=== PATIENT | female | born 1950 | race Caucasian/White ===

== ENCOUNTER 2017-09-13 16:02 | Inpatient (IN) | payer MEDICARE, OTHER ==
[2017-09-13] MEDS ORDERED: HYDROmorphone 0.5 MG/0.5 ML SYRINGE IVPUSH ONE ×2 (16:25→19:11)
[2017-09-13] MEDS ORDERED: Ondansetron 4 MG/2 ML SDV IVPUSH ONE (16:29)
[2017-09-13] MEDS ORDERED: Sodium Chloride 0.9% 1,000 ML IV SCH (16:30)
[2017-09-13] MEDS ORDERED: Sodium Chloride 0.9% 10 ML Syringe FLUSH PRN (16:33)
--- NOTE | 2017-09-13 16:37 | EDM.PDOC ---
ED HPI GENERAL MEDICAL PROBLEM - General Chief Complaint: Lower Extremity Injury/Pain Stated Complaint: AMBULANCE Time Seen by Provider: 09/13/17 16:21 Source of Information: Reports: Patient History Limitations: Reports: No Limitations - History of Present Illness INITIAL COMMENTS - FREE TEXT/NARRATIVE: Patient is a 67-year-old female presents ED complaining of right hip pain. Patient states earlier today she was walking her dog when her dog took off suddenly jerking the leash in her hand. Patient fell landing on the right hip and hitting the right side of her head. There was no loss of consciousness. Patient got up on her own accord with no issues. She has been walking on the affected extremity with increasing pain. She presented to the walk-in clinic today with x-ray obtained. Fracture was noted thus she was sent to the ED for further evaluation by Dr. Vieira. Patient is on no anticoagulants. She denies any neck discomfort, nausea/vomiting, vision changes, chest pain, shortness of breath, abdominal pain, dysuria, n/t extremities, or any additional complaints. Treatments LEATHER PATCHER: Reports: Other (see below) Other Treatments LEATHER PATCHER: none Right Hip Pain Score (Numeric/FACES): 10 - Related Data Allergies Allergy/AdvReac Type Severity Reaction Status Date / Time spironolactone Allergy Itching Verified 03/31/14 10:31 Sulfa (Sulfonamide Allergy Rash Verified 03/31/14 10:31 Antibiotics) Home Meds: Home Meds Furosemide [Lasix] 40 mg PO DAILY 03/31/14 [History] Levothyroxine [Synthroid] 125 mcg PO DAILY 03/31/14 [History] glipiZIDE [Glipizide ER] 10 mg PO DAILY 03/31/14 [History] metFORMIN HCl [Metformin HCl ER] 750 mg PO DAILY 03/31/14 [History] SitaGLIPtin [Januvia] 100 mg PO DAILY 09/13/17 [History] atorvaSTATin [Lipitor] 40 mg PO DAILY 09/13/17 [History] Past Medical History Gastrointestinal History: Reports: Other (See Below) Other Gastrointestinal History: benign neoplasm of the colon Musculoskeletal History: Reports: Other (See Below) Other Musculoskeletal History: 2 right surgery to knee Psychiatric History: Reports: Anxiety Endocrine/Metabolic History: Reports: Diabetes, Type II, Hypothyroidism - Past Surgical History GI Surgical History: Reports: Cholecystectomy Musculoskeletal Surgical History: Reports: Carpal Tunnel Social & Family History - Tobacco Use Smoking Status *Q: Current Every Day Smoker Years of Tobacco use: 50 Packs/Tins Daily: 1.5 - Caffeine Use Caffeine Use: Reports: Coffee, Soda - Alcohol Use Days Per Week of Alcohol Use: 0 Number of Drinks Per Day: 0 Total Drinks Per Week: 0 - Recreational Drug Use Recreational Drug Use: No Drug Use in Last 12 Months: No Review of Systems - Review of Systems Review Of Systems: See Below Eyes: Reports: No Symptoms Respiratory: Reports: No Symptoms Cardiovascular: Reports: No Symptoms GI/Abdominal: Reports: No Symptoms Musculoskeletal: Reports: Joint Pain (Right hip). Denies: Neck Pain Skin: Reports: Bruising (Right side of her head small hematoma with abrasion) Neurological: Reports: Difficulty Walking (Secondary to pain) ED EXAM, GENERAL - Physical Exam Exam: See Below Exam Limited By: No Limitations General Appearance: Alert, WD/WN, Moderate Distress Eye Exam: Bilateral Eye: EOMI, Nystagmus (None noted), PERRL Ears: Hearing Grossly Normal Nose: Normal Inspection Throat/Mouth: Normal Inspection, Normal Voice, No Airway Compromise Head: Other (Small hematoma with abrasion to the right side of her head secondary to fall. No ecchymosis, bony abnormalities.) Neck: Normal Inspection, Supple, Non-Tender, Full Range of Motion Respiratory/Chest: No Respiratory Distress, Lungs Clear, Normal Breath Sounds, No Accessory Muscle Use, Chest Non-Tender Cardiovascular: Normal Peripheral Pulses, Regular Rate, Rhythm, No Murmur Peripheral Pulses: 2+: Posterior Tibial (L), Posterior Tibial (R), 4+: Radial (L ), Radial (R) GI/Abdominal: Normal Bowel Sounds, Soft, Non-Tender, No Distention Back Exam: Normal Inspection. No: Paraspinal Tenderness, Vertebral Tenderness Extremities: Normal Inspection, Pedal Edema (Bilaterally), Limited Range of Motion, Other (Pain with palpation of the right hip with palpation. With palpation of the remaining aspect of the femur, knee, lower leg, ankle, foot there is no discomfort.) Neurological: Alert, Oriented, CN II-XII Intact, Normal Cognition, No Motor/ Sensory Deficits Psychiatric: Normal Affect, Normal Mood Skin Exam: Warm, Dry, Intact, Normal Color Course - Vital Signs Last Recorded V/S: Last Vital Signs Temp 98.3 F 09/13/17 16:07 Pulse 101 H 09/13/17 16:07 Resp 20 09/13/17 16:07 BP 120/63 09/13/17 16:07 Pulse Ox 91 L 09/13/17 20:42 - Orders/Labs/Meds Orders: Active Orders 24 hr Category Date Time Status Sodium Chloride 0.9% [Saline Flush] Med 09/13/17 16:33 Active 10 ml FLUSH ASDIRECTED PRN Peripheral IV Insertion Adult [OM.PC] Routine Oth 09/13/17 16:33 Ordered Medication Orders Acetaminophen (Tylenol) 650 mg PO Q6H PRN PRN Reason: Pain/Fever Dextrose/Water (Dextrose 50% In Water) 50 ml IVPUSH ASDIRECTED PRN PRN Reason: Hypoglycemia Glipizide (Glucotrol Xl) 10 mg PO DAILY [facility] Hydromorphone HCl (Dilaudid) 0.5 mg IVPUSH Q4H PRN PRN Reason: Pain (moderate 4-6) Sodium Chloride (Sodium Chloride 0.45%) 1,000 mls @ 125 mls/hr IV ASDIRECTED [facility] Last Admin: 09/13/17 20:38 Dose: 125 mls/hr Insulin Aspart (Novolog) 0 unit SUBCUT QIDACANDBED [facility]; Protocol Last Admin: 09/13/17 21:25 Dose: Not Given Ketorolac Tromethamine (Toradol) 15 mg IVPUSH Q6H [facility] Last Admin: 09/13/17 20:34 Dose: 15 mg Levothyroxine Sodium (Levothyroxine) 125 mcg PO ACBRK [facility] Ondansetron HCl (Zofran) 4 mg IVPUSH Q8H PRN PRN Reason: Nausea/Vomiting Rosuvastatin Calcium (Crestor) 10 mg PO DAILY [facility] Sodium Chloride (Saline Flush) 10 ml FLUSH ASDIRECTED PRN PRN Reason: Keep Vein Open Last Admin: 09/13/17 16:39 Dose: 10 ml Labs: Laboratory Tests 09/13/17 09/13/17 09/13/17 Range/Units 16:45 16:45 16:45 WBC 23.04 H (3.98-10.04) K/mm3 RBC 5.51 H (3.98-5.22) M/mm3 Hgb 17.3 H (11.2-15.7) gm/L Hct 50.6 H (34.1-44.9) % MCV 91.8 (79.4-94.8) fl MCH 31.4 (25.6-32.2) pg MCHC 34.2 (32.2-35.5) g/dl RDW Std Deviation 41.2 (36.4-46.3) fL Plt Count 260 (182-369) K/mm3 MPV 11.5 (9.4-12.3) fl Neutrophils % (Manual) 90 H (40-60) % Band Neutrophils % 0 (0-10) % Lymphocytes % (Manual) 6 L (20-40) % Atypical Lymphs % 0 % Monocytes % (Manual) 4 (2-10) % Eosinophils % (Manual) 0 L (0.7-5.8) % Basophils % (Manual) 0 L (0.1-1.2) Platelet Estimate Adequate RBC Morph Comment Normal PT 10.3 (9.5-12.1) SECONDS INR 0.94 APTT 25 (24-31) SECONDS Sodium 141 (136-145) mEq/L Potassium 4.0 (3.5-5.1) mEq/L Chloride 106 (98-107) mEq/L Carbon Dioxide 28 (21-32) mEq/L Anion Gap 11.0 (5-15) BUN 25 H (7-18) mg/dL Creatinine 0.8 (0.55-1.02) mg/dL Est Cr Clr Drug Dosing 65.45 mL/min Estimated GFR (MDRD) > 60 (>60) mL/min BUN/Creatinine Ratio 31.3 H (14-18) Glucose 187 H (80-115) mg/dL Calcium 9.3 (8.5-10.1) mg/dL Total Bilirubin 0.4 (0.2-1.0) mg/dL AST 23 (15-37) U/L ALT 29 (14-59) U/L Alkaline Phosphatase 59 (46-116) U/L Total Protein 5.6 L (6.4-8.2) g/dl Albumin 2.5 L (3.4-5.0) g/dl Globulin 3.1 gm/dL Albumin/Globulin Ratio 0.8 L (1-2) Meds: Medications Generic Name Dose Route Start Last Admin Trade Name Freq PRN Reason Stop Dose Admin Acetaminophen 650 mg 09/13/17 19:59 Tylenol PO Q6H PRN Pain/Fever Dextrose/Water 50 ml 09/13/17 19:44 Dextrose 50% In Water IVPUSH ASDIRECTED PRN Hypoglycemia Glipizide 10 mg 09/14/17 09:00 Glucotrol Xl PO DAILY [facility] Hydromorphone HCl 0.5 mg 09/13/17 19:45 Dilaudid IVPUSH Q4H PRN Pain (moderate 4-6) Sodium Chloride 1,000 mls @ 125 mls/hr 09/13/17 20:00 09/13/17 20:38 Sodium Chloride 0.45% IV 125 mls/hr ASDIRECTED [facility] Administration Insulin Aspart 0 unit 09/13/17 22:00 09/13/17 21:25 Novolog SUBCUT Not Given QIDACANDBED [facility] Protocol Ketorolac Tromethamine 15 mg 09/13/17 20:00 09/13/17 20:34 Toradol IVPUSH 15 mg Q6H [facility] Administration Levothyroxine Sodium 125 mcg 09/14/17 06:00 Levothyroxine PO ACBRK [facility] Ondansetron HCl 4 mg 09/13/17 19:51 Zofran IVPUSH Q8H PRN Nausea/Vomiting Rosuvastatin Calcium 10 mg 09/14/17 09:00 Crestor PO DAILY [facility] Sodium Chloride 10 ml 09/13/17 16:33 09/13/17 16:39 Saline Flush FLUSH 10 ml ASDIRECTED PRN Administration Keep Vein Open Discontinued Medications Generic Name Dose Route Start Last Admin Trade Name Jan PRN Reason Stop Dose Admin Hydromorphone HCl 0.5 mg 09/13/17 16:25 09/13/17 16:32 Dilaudid IVPUSH 09/13/17 16:26 0.5 mg ONETIME ONE Administration Hydromorphone HCl 0.5 mg 09/13/17 19:11 09/13/17 20:37 Dilaudid IVPUSH 09/13/17 19:12 0.5 mg ONETIME ONE Administration Sodium Chloride 1,000 mls @ 150 mls/hr 09/13/17 16:30 09/13/17 16:39 Normal Saline IV 150 mls/hr ASDIRECTED [facility] Administration Ondansetron HCl 4 mg 09/13/17 16:29 09/13/17 16:38 Zofran IVPUSH 09/13/17 16:30 4 mg ONETIME ONE Administration - Re-Assessments/Exams Free Text/Narrative Re-Assessment/Exam: We reviewed x-rays of the right hip. Right hip is impacted. Dr. Vieira has presented to the ED and reviewed films at 1632. Plan is to admit the patient to medicine to clear for surgery. Surgery will take place tomorrow morning. Has significant amount of pain to the right hip ordered Dilaudid 0.5 mg IVP, Zofran 4 mg IVP, and NS at 150 mL an hour. Initial labs and studies include CBC, chem 14, coag studies, and UA. Will contact Dr. Lou for admission. Chest x-ray and EKG can be completed on the floor. In addition patient has contusion of the right side of her head with no bony abnormalities noted. She had no LOC. Denies any vision changes, n/v, neck pain , or any additional complaints suggesting CT is required. She is on no anticoagulants.. 09/13/17 16:[address] Lou. She will see this patient in the E.D. requested I obtain EKG, chest x-ray, head CT while he ED. Labs reviewed: Blood cell count 23.04, hemoglobin 17.3, platelet count 260, neutrophil percentage is elevated at 98 with no left shift. Case to panel was essentially normal. Creatinine 0.8. Glucose 187. UA was negative for infection. EKG sinus rhythm at a rate of [address] changes noted. CT of the head impression: Mild soft tissue swelling within the right scalp. No acute intracranial abnormality is identified. No acute calvarial abnormalities seen. Chest x-ray impression: Nothing acute is suspected on portable chest x-ray. Patient was admitted to the floor. Dr. Lou has seen the patient. Departure - Departure Time of Disposition: 16:37 Disposition: Admitted As Inpatient 65 Condition: Good Clinical Impression: Closed right hip fracture Qualifiers: Encounter type: initial encounter Qualified Code(s): S72.001A - Fracture of unspecified part of neck of right femur, initial encounter for closed fracture - Discharge Information - My Orders Last 24 Hours: My Active Orders 09/13/17 16:33 Sodium Chloride 0.9% [Saline Flush] 10 ml FLUSH ASDIRECTED PRN Peripheral IV Insertion Adult [OM.PC] Routine - Assessment/Plan Last 24 Hours: My Active Orders 09/13/17 16:33 Sodium Chloride 0.9% [Saline Flush] 10 ml FLUSH ASDIRECTED PRN Peripheral IV Insertion Adult [OM.PC] Routine
--- NOTE | 2017-09-13 17:41 | CT ---
Head CT Technique: Multiple axial sections through the brain were obtained. Intravenous contrast was not utilized. Comparison: No prior intracranial imaging. Findings: Mild soft tissue swelling is seen within the right side of the scalp. Ventricles along with basal cisterns and sulci over the convexities are within normal limits for the patient's age. No abnormal parenchymal densities are seen. No evidence of intracranial hemorrhage. No midline shift or mass effect is seen. Visualized sinuses are clear. No acute calvarial abnormality is seen. Impression: 1. Mild soft tissue swelling within the right scalp. 2. No acute intracranial abnormality is identified. No acute calvarial abnormality is seen. Diagnostic code #2
--- NOTE | 2017-09-13 18:53 | CR ---
Chest: Portable view of the chest was obtained. Comparison: No prior chest imaging. Right hemidiaphragm is slightly elevated which is likely chronic. Minimal atelectasis within the right lateral costophrenic angle is seen. Heart size appears within normal limits for portable technique. Tortuous thoracic aorta is seen. Lung markings are mildly increased which are felt to be accentuated from portable technique as well as probable chronic change. No acute parenchymal densities are suspected. Bony structures are grossly intact. Impression: 1. Findings as noted above. Nothing acute is suspected on portable chest x-ray. Diagnostic code #2
--- NOTE | 2017-09-13 19:39 | PCM.HP ---
H&P History of Present Illness - General Date of Service: 09/13/17 Admit Problem/Dx: Admission Diagnosis/Problem Admission Diagnosis/Problem Hip fracture requiring operative repair Source of Information: Patient, Provider History Limitations: Reports: No Limitations - History of Present Illness Initial Comments - Free Text/Narative: 67 year old female reports falling when walking her dog; she reported falling on her hip and hitting her head. The patient was seen in the ED by Dr Vieira and scheduled for an ortho procedure on 09/14/17 for a valgus impacted subcapital femur fracture. The patient was seen initially at a walk in clinic where an X Ray was performed. She denies CP, SOB, palpitations, PND, syncopal/ presyncopal episode. She can easily perform 4 METS and may proceed to surgery as scheduled. Onset of Symptoms: Reports: Sudden Symptom Onset Date: 09/13/17 Duration of Symptoms: Reports: Hour(s):, Getting Worse Location: Reports: Lower Extremity, Right Quality: Reports: Throbbing Improves with: Reports: Medication Worsens with: Reports: Movement Associated Symptoms: Reports: No Other Symptoms Right Hip Pain Score (Numeric/FACES): 4 - Related Data Allergies/Adverse Reactions: Allergies Allergy/AdvReac Type Severity Reaction Status Date / Time spironolactone Allergy Itching Verified 03/31/14 10:31 Sulfa (Sulfonamide Allergy Rash Verified 03/31/14 10:31 Antibiotics) Home Medications: Home Meds Furosemide [Lasix] 40 mg PO DAILY 03/31/14 [History] Levothyroxine [Synthroid] 125 mcg PO DAILY 03/31/14 [History] glipiZIDE [Glipizide ER] 10 mg PO DAILY 03/31/14 [History] metFORMIN HCl [Metformin HCl ER] 750 mg PO DAILY 03/31/14 [History] SitaGLIPtin [Januvia] 100 mg PO DAILY 09/13/17 [History] atorvaSTATin [Lipitor] 40 mg PO DAILY 09/13/17 [History] Past Medical History HEENT History: Reports: Cataract, Impaired Vision, Other (See Below) Other HEENT History: wears glasses Gastrointestinal History: Reports: Other (See Below) Other Gastrointestinal History: benign neoplasm of the colon-removed 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 Dermatologic History: Reports: Other (See Below) Other Dermatologic History: stated she had skin cancer - Past Surgical History HEENT Surgical History: Reports: None GI Surgical History: Reports: Cholecystectomy Musculoskeletal Surgical History: Reports: Carpal Tunnel Oncologic Surgical History: Reports: None Dermatological Surgical History: Reports: Skin Biopsy Social & Family History - Family History Family Medical History: Noncontributory - Tobacco Use Smoking Status *Q: Current Every Day Smoker Years of Tobacco use: 50 Packs/Tins Daily: 1.5 - Caffeine Use Caffeine Use: Reports: Coffee, Soda - Alcohol Use Days Per Week of Alcohol Use: 0 Number of Drinks Per Day: 0 Total Drinks Per Week: 0 - Recreational Drug Use Recreational Drug Use: No Drug Use in Last 12 Months: No H&P Review of Systems - Review of Systems: Review Of Systems: See Below General: Reports: Weakness HEENT: Reports: No Symptoms Pulmonary: Reports: No Symptoms Cardiovascular: Reports: No Symptoms Gastrointestinal: Reports: No Symptoms Genitourinary: Reports: No Symptoms Musculoskeletal: Reports: No Symptoms Skin: Reports: No Symptoms Psychiatric: Reports: No Symptoms Neurological: Reports: No Symptoms Hematologic/Lymphatic: Reports: No Symptoms Immunologic: Reports: No Symptoms Exam - Exam Exam: See Below - Vital Signs Vital Signs: Last Vital Signs Temp 36.8 C 09/13/17 16:07 Pulse 101 H 09/13/17 16:07 Resp 20 09/13/17 16:07 BP 120/63 09/13/17 16:07 Pulse Ox 93 L 09/13/17 16:07 Weight: 85.865 kg - Exam Quality Assessment: Supplemental Oxygen General: Alert, Oriented, Cooperative HEENT: EACs Clear, EOMI, Nares Patent, Normal Nasal Septum, Pupils Equal, Pupils Reactive, PERRLA Neck: Supple, Trachea Midline Lungs: Normal Respiratory Effort Cardiovascular: Regular Rate, Regular Rhythm GI/Abdominal Exam: Normal Bowel Sounds, Soft, Non-Tender, No Organomegaly, No Distention (Female) Exam: Deferred Rectal (Female) Exam: Deferred Back Exam: Normal Inspection Extremities: Normal Inspection, Normal Capillary Refill, Pedal Edema Skin: Warm Neurological: Cranial Nerves Intact Neuro Extensive - Mental Status: Alert, Oriented x3 Neuro Extensive - Motor, Sensory, Reflexes: CN II-XII Intact Psychiatric: Alert, Normal Affect, Normal Mood - Patient Data Lab Results Last 24 hrs: Laboratory Results - last 24 hr 09/13/17 09/13/17 09/13/17 Range/Units 16:45 16:45 16:45 WBC 23.04 H (3.98-10.04) K/mm3 RBC 5.51 H (3.98-5.22) M/mm3 Hgb 17.3 H (11.2-15.7) gm/L Hct 50.6 H (34.1-44.9) % MCV 91.8 (79.4-94.8) fl MCH 31.4 (25.6-32.2) pg MCHC 34.2 (32.2-35.5) g/dl RDW Std Deviation 41.2 (36.4-46.3) fL Plt Count 260 (182-369) K/mm3 MPV 11.5 (9.4-12.3) fl Neutrophils % (Manual) 90 H (40-60) % Band Neutrophils % 0 (0-10) % Lymphocytes % (Manual) 6 L (20-40) % Atypical Lymphs % 0 % Monocytes % (Manual) 4 (2-10) % Eosinophils % (Manual) 0 L (0.7-5.8) % Basophils % (Manual) 0 L (0.1-1.2) Platelet Estimate Adequate RBC Morph Comment Normal PT 10.3 (9.5-12.1) SECONDS INR 0.94 APTT 25 (24-31) SECONDS Sodium 141 (136-145) mEq/L Potassium 4.0 (3.5-5.1) mEq/L Chloride 106 (98-107) mEq/L Carbon Dioxide 28 (21-32) mEq/L Anion Gap 11.0 (5-15) BUN 25 H (7-18) mg/dL Creatinine 0.8 (0.55-1.02) mg/dL Est Cr Clr Drug Dosing 65.45 mL/min Estimated GFR (MDRD) > 60 (>60) mL/min BUN/Creatinine Ratio 31.3 H (14-18) Glucose 187 H (80-115) mg/dL Calcium 9.3 (8.5-10.1) mg/dL Total Bilirubin 0.4 (0.2-1.0) mg/dL AST 23 (15-37) U/L ALT 29 (14-59) U/L Alkaline Phosphatase 59 (46-116) U/L Total Protein 5.6 L (6.4-8.2) g/dl Albumin 2.5 L (3.4-5.0) g/dl Globulin 3.1 gm/dL Albumin/Globulin Ratio 0.8 L (1-2) Result Diagrams: 09/14/17 05:40 09/14/17 05:40 - Problem List (1) Tobacco dependence due to cigarettes SNOMED Code(s): 76185318573740662 ICD Code: F17.210 - NICOTINE DEPENDENCE, CIGARETTES, UNCOMPLICATED Status: Acute Current Visit: Yes (2) Diabetes mellitus SNOMED Code(s): 23506695 ICD Code: E11.9 - TYPE 2 DIABETES MELLITUS WITHOUT COMPLICATIONS Status: Acute Current Visit: Yes (3) Hyperlipidemia associated with type 2 diabetes mellitus SNOMED Code(s): 193517395628, 034665263016 ICD Code: E11.69 - TYPE 2 DIABETES MELLITUS WITH OTHER SPECIFIED COMPLICATION ; E78.5 - HYPERLIPIDEMIA, UNSPECIFIED Status: Acute Current Visit: Yes (4) Hypertension SNOMED Code(s): 74272918 ICD Code: I10 - ESSENTIAL (PRIMARY) HYPERTENSION Status: Acute Current Visit: Yes (5) COPD (chronic obstructive pulmonary disease) SNOMED Code(s): 03066085 ICD Code: J44.9 - CHRONIC OBSTRUCTIVE PULMONARY DISEASE, UNSPECIFIED Status : Acute Current Visit: Yes Problem List Initiated/Reviewed/Updated: Yes Orders Last 24hrs: Active Orders 24 hr Category Date Time Status Admission Status [Patient Status] [ADT] Routine ADT 09/13/17 17:04 Active METH-RESIST S.AUR,MRSA BY PCR [MOLEC] Routine Lab 09/13/17 17:17 Ordered UA W/MICROSCOPIC [URIN] Stat Lab 09/13/17 16:28 Ordered Sodium Chloride 0.9% [Normal Saline] 1,000 ml Med 09/13/17 16:30 Active IV ASDIRECTED Sodium Chloride 0.9% [Saline Flush] Med 09/13/17 16:33 Active 10 ml FLUSH ASDIRECTED PRN Peripheral IV Insertion Adult [OM.PC] Routine Oth 09/13/17 16:33 Ordered Resuscitation Status Routine Resus Stat 09/13/17 19:12 Ordered Medication Orders Sodium Chloride (Normal Saline) 1,000 mls @ 150 mls/hr IV ASDIRECTED [facility] Last Admin: 09/13/17 16:39 Dose: 150 mls/hr Sodium Chloride (Saline Flush) 10 ml FLUSH ASDIRECTED PRN PRN Reason: Keep Vein Open Last Admin: 09/13/17 16:39 Dose: 10 ml Assessment/Plan Comment:: Impression: S/P fall with subsequent closed right hip fracture COPD with active tobacco use; no interest in quitting HTN DM type 2 HLD on a statin Plan: IVF Hold Metformin Home meds Pain meds; Toradol as tolerated Pre op labs; scheduled as per Ortho NPO after MN except meds Check HgB, DM ed and teaching Dietary consultation Nicotine replacement and tobacco cessation education Consult PT/OT/SW post op; expected hosp stay 96 hours DVT/GI prophylaxis
[2017-09-13] MEDS ORDERED: 50% Dextrose in Water 50 ML Syringe IVPUSH PRN (19:44)
[2017-09-13] MEDS ORDERED: HYDROmorphone 0.5 MG/0.5 ML SYRINGE IVPUSH PRN (19:45)
[2017-09-13] MEDS ORDERED: Acetaminophen 325 MG Tab PO PRN (19:59)
[2017-09-13] MEDS ORDERED: Sodium Chloride 0.45% 1,000 ML IV SCH (20:00)
[2017-09-13] MEDS: Ketorolac 15 MG/ML SDV IVPUSH SCH (20:34)
[2017-09-13] MEDS: Insulin Aspart 100 Units/ML 3 ML Pen SUBCUT SCH (21:25)
[2017-09-14] MEDS: Ketorolac 15 MG/ML SDV IVPUSH SCH ×2 (04:07→20:15)
[2017-09-14] MEDS: Levothyroxine 125 MCG Tab PO SCH (05:15)
[2017-09-14] MEDS: Insulin Aspart 100 Units/ML 3 ML Pen SUBCUT SCH ×4 (06:20→23:26)
[2017-09-14] MEDS ORDERED: Bupivacaine 0.5% 30 ML SDV ONE (06:24)
[2017-09-14] MEDS ORDERED: Cyclobenzaprine 10 MG Tab PO PRN (07:18)
[2017-09-14] MEDS ORDERED: Magnesium Hydroxide 400 MG/5 ML Susp 30 ML Cup PO PRN (07:19)
[2017-09-14] MEDS ORDERED: Naloxone 0.4 MG/ML SDV IVPUSH PRN (07:19)
[2017-09-14] MEDS ORDERED: Bupivacaine 0.25% 30 ML SDV ONE (07:19)
[2017-09-14] MEDS ORDERED: Bisacodyl 5 MG Tab PO PRN (07:19)
[2017-09-14] MEDS ORDERED: Propofol 200 MG/20 ML SDV ONE (07:25)
[2017-09-14] MEDS ORDERED: fentaNYL 100 MCG/2 ML SDV ONE (07:25)
[2017-09-14] MEDS ORDERED: Lidocaine 1% 4 ML ONE (07:26)
[2017-09-14] MEDS ORDERED: Midazolam 1 MG/ML 2 ML SDV ONE (07:26)
[2017-09-14] MEDS ORDERED: Bupivacaine 0.75% 30 ML SDV ONE (07:26)
[2017-09-14] MEDS ORDERED: Ketamine 500 mg/10 ML MDV ONE (07:26)
[2017-09-14] MEDS ORDERED: ceFAZolin 2 GM in Premix Bag 1 BAG IV SCH (07:30)
[2017-09-14] MEDS ORDERED: Morphine PF 1 MG/ML Amp ONE (07:34)
[2017-09-14] MEDS ORDERED: Lactated Ringers 2,000 ML ONE (08:10)
[2017-09-14] MEDS ORDERED: Dexamethasone 4 MG/ML SDV ONE (08:10)
[2017-09-14] MEDS ORDERED: Ondansetron 4 MG/2 ML SDV ONE (08:20)
[2017-09-14] MEDS ORDERED: fentaNYL 100 MCG/2 ML SDV IVPUSH PRN (08:28)
[2017-09-14] MEDS ORDERED: Meperidine PF 50 MG/ML Syringe IVPUSH PRN (08:28)
[2017-09-14] MEDS ORDERED: Ondansetron 4 MG/2 ML SDV IVPUSH PRN (08:28)
[2017-09-14] MEDS ORDERED: HYDROmorphone 0.5 MG/0.5 ML SYRINGE IV PRN (08:28)
[2017-09-14] MEDS ORDERED: Albuterol 0.083% 2.5 MG/3 ML Neb Soln NEB ONE (08:28)
--- NOTE | 2017-09-14 08:33 | PCM.PREANE ---
Preanesthetic Assessment - Procedure Proposed Procedure: Percutaneous Hip Pinning - Anesthesia/Transfusion/Family Hx Anesthesia History: Prior Anesthesia Without Reaction Family History of Anesthesia Reaction: No Transfusion History: No Prior Transfusion(s) - Review of Systems General: No Symptoms Pulmonary: Wheezing, Cough, Other (Smokes 1-2 ppd) Cardiovascular: No Symptoms Gastrointestinal: No Symptoms Other: Reports: Thyroid Problems (Hypothyroidism ), Anxiety - Physical Assessment NPO Status Date: 09/13/17 NPO Status Time: 23:59 Pulse: 86 O2 Sat by Pulse Oximetry: 95 (On 4L/NC) Respiratory Rate: 16 Blood Pressure: 125/65 Temperature: 36.9 C Vital Signs: Last Vital Signs Temp 36.9 C 09/14/17 04:05 Pulse 86 09/14/17 04:05 Resp 16 09/14/17 04:05 BP 125/65 09/14/17 04:05 Pulse Ox 95 09/14/17 04:05 Height: 1.7 m Weight: 86.228 kg ASA Class: 3E Mental Status: Alert & Oriented x3 Airway Class: Mallampati = 1 Dentition: Reports: Normal Dentition, Broken Tooth/Teeth, Missing Tooth/Teeth Thyro-Mental Finger Breadths: 3 Mouth Opening Finger Breadths: 3 ROM/Head Extension: Full Lungs: Clear to Auscultation, Normal Respiratory Effort, Decreased Breath Sounds Cardiovascular: Regular Rate, Regular Rhythm - Lab Values: Laboratory Last Values WBC 13.33 K/mm3 (3.98-10.04) H 09/14/17 05:40 RBC 4.74 M/mm3 (3.98-5.22) 09/14/17 05:40 Hgb 15.1 gm/L (11.2-15.7) 09/14/17 05:40 Hct 44.4 % (34.1-44.9) 09/14/17 05:40 MCV 93.7 fl (79.4-94.8) 09/14/17 05:40 MCH 31.9 pg (25.6-32.2) 09/14/17 05:40 MCHC 34.0 g/dl (32.2-35.5) 09/14/17 05:40 RDW Std Deviation 41.6 fL (36.4-46.3) 09/14/17 05:40 Plt Count 215 K/mm3 (182-369) 09/14/17 05:40 MPV 11.9 fl (9.4-12.3) 09/14/17 05:40 Neut % (Auto) 84.3 % (34.0-71.1) H 09/14/17 05:40 Lymph % (Auto) 7.7 % (19.3-51.7) L 09/14/17 05:40 [place] % (Auto) 5.9 % (4.7-12.5) 09/14/17 05:40 Eos % (Auto) 1.7 (0.7-5.8) 09/14/17 05:40 Baso % (Auto) 0.2 % (0.1-1.2) 09/14/17 05:40 Neut # (Auto) 11.23 K/mm3 (1.56-6.13) H 09/14/17 05:40 Lymph # (Auto) 1.03 K/mm3 (1.18-3.74) L 09/14/17 05:40 [place] # (Auto) 0.78 K/mm3 (0.24-0.36) H 09/14/17 05:40 Eos # (Auto) 0.23 K/mm3 (0.04-0.36) 09/14/17 05:40 Baso # (Auto) 0.03 K/mm3 (0.01-0.08) 09/14/17 05:40 Neutrophils % (Manual) 90 % (40-60) H 09/13/17 16:45 Band Neutrophils % 0 % (0-10) 09/13/17 16:45 Lymphocytes % (Manual) 6 % (20-40) L 09/13/17 16:45 Atypical Lymphs % 0 % 09/13/17 16:45 Monocytes % (Manual) 4 % (2-10) 09/13/17 16:45 Eosinophils % (Manual) 0 % (0.7-5.8) L 09/13/17 16:45 Basophils % (Manual) 0 (0.1-1.2) L 09/13/17 16:45 Manual Slide Review Abnormal smear 09/14/17 05:40 Platelet Estimate Adequate 09/13/17 16:45 RBC Morph Comment Normal 09/13/17 16:45 PT 10.3 SECONDS (9.5-12.1) 09/13/17 16:45 INR 0.94 09/13/17 16:45 APTT 25 SECONDS (24-31) 09/13/17 16:45 Sodium 139 mEq/L (136-145) 09/14/17 05:40 Potassium 4.1 mEq/L (3.5-5.1) 09/14/17 05:40 Chloride 106 mEq/L (98-107) 09/14/17 05:40 Carbon Dioxide 27 mEq/L (21-32) 09/14/17 05:40 Anion Gap 10.1 (5-15) 09/14/17 05:40 BUN 19 mg/dL (7-18) H 09/14/17 05:40 Creatinine 0.7 mg/dL (0.55-1.02) 09/14/17 05:40 Est Cr Clr Drug Dosing 74.80 mL/min 09/14/17 05:40 Estimated GFR (MDRD) > 60 mL/min (>60) 09/14/17 05:40 BUN/Creatinine Ratio 27.1 (14-18) H 09/14/17 05:40 Glucose 151 mg/dL (80-115) H 09/14/17 05:40 POC Glucose 135 mg/dL (80-115) H 09/14/17 06:01 Calcium 8.5 mg/dL (8.5-10.1) 09/14/17 05:40 Magnesium 2.0 mg/dl (1.8-2.4) 09/14/17 05:40 Total Bilirubin 0.4 mg/dL (0.2-1.0) 09/13/17 16:45 AST 23 U/L (15-37) 09/13/17 16:45 ALT 29 U/L (14-59) 09/13/17 16:45 Alkaline Phosphatase 59 U/L (46-116) 09/13/17 16:45 C-Reactive Protein 3.4 mg/dL (<1.0) H* 09/14/17 05:40 Total Protein 5.6 g/dl (6.4-8.2) L 09/13/17 16:45 Albumin 2.5 g/dl (3.4-5.0) L 09/13/17 16:45 Globulin 3.1 gm/dL 09/13/17 16:45 Albumin/Globulin Ratio 0.8 (1-2) L 09/13/17 16:45 Triglycerides 41 mg/dL (<150) 09/14/17 05:40 Cholesterol 147 mg/dL (<200) 09/14/17 05:40 LDL Cholesterol Direct 88 mg/dL (<100) 09/14/17 05:40 HDL Cholesterol 51.0 mg/dL (40-59) 09/14/17 05:40 Urine Color Yellow (Yellow) 09/13/17 21:30 Urine Appearance Clear (Clear) 09/13/17 21:30 Urine pH 5.5 (5.0-8.0) 09/13/17 21:30 Ur Specific [place] > or = 1.030 (1.005-1.030) 09/13/17 21:30 Urine Protein Trace (Negative) H 09/13/17 21:30 Urine Glucose (UA) Negative (Negative) 09/13/17 21:30 Urine Ketones Negative (Negative) 09/13/17 21:30 Urine Occult Blood Negative (Negative) 09/13/17 21:30 Urine Nitrite Negative (Negative) 09/13/17 21:30 Urine Bilirubin Negative (Negative) 09/13/17 21:30 Urine Urobilinogen 0.2 (0.2-1.0) 09/13/17 21:30 Ur Leukocyte Esterase Negative (Negative) 09/13/17 21:30 Urine RBC 0-5 /hpf (0-5) 09/13/17 21:30 Urine WBC 0-5 /hpf (0-5) 09/13/17 21:30 Ur Epithelial Cells 0-5 /hpf (0-5) 09/13/17 21:30 Urine Bacteria Occasional /hpf (FEW) 09/13/17 21:30 Urine Mucus Few /hpf (FEW) 09/13/17 21:30 MRSA (PCR) Negative 09/13/17 21:30 - Allergies Allergies/Adverse Reactions: Allergies Allergy/AdvReac Type Severity Reaction Status Date / Time spironolactone Allergy Itching Verified 03/31/14 10:31 Sulfa (Sulfonamide Allergy Rash Verified 03/31/14 10:31 Antibiotics) - Acknowledgements Anesthesia Type Planned: Spinal Pt an Appropriate Candidate for the Planned Anesthesia: Yes Alternatives and Risks of Anesthesia Discussed w Pt/Guardian: Yes Pt/Guardian Understands and Agrees with Anesthesia Plan: Yes PreAnesthesia Questionnaire HEENT History: Reports: Cataract, Impaired Vision, Other (See Below) Other HEENT History: wears glasses Gastrointestinal History: Reports: Other (See Below) Other Gastrointestinal History: benign neoplasm of the colon [employer] History: Reports: Musculoskeletal History: Reports: Other (See Below) Other Musculoskeletal History: 2 right surgery to knee Psychiatric History: Reports: Anxiety Endocrine/Metabolic History: Reports: Diabetes, Type II, Hypothyroidism Oncologic (Cancer) History: Reports: Other (See Below) Other Oncologic History: stated she has/had skin cancer. Dermatologic History: Reports: Other (See Below) Other Dermatologic History: stated she had skin cancer - Past Surgical History GI Surgical History: Reports: Cholecystectomy Musculoskeletal Surgical History: Reports: Carpal Tunnel - SUBSTANCE USE Smoking Status *Q: Current Every Day Smoker Tobacco Use Within Last Twelve Months: Cigarettes Days Per Week of Alcohol Use: 0 Number of Drinks Per Day: 0 Total Drinks Per Week: 0 Recreational Drug Use History: No - HOME MEDS Home Medications: Home Meds Furosemide [Lasix] 40 mg PO DAILY 03/31/14 [History] Levothyroxine [Synthroid] 125 mcg PO DAILY 03/31/14 [History] glipiZIDE [Glipizide ER] 10 mg PO DAILY 03/31/14 [History] metFORMIN HCl [Metformin HCl ER] 750 mg PO DAILY 03/31/14 [History] SitaGLIPtin [Januvia] 100 mg PO DAILY 09/13/17 [History] atorvaSTATin [Lipitor] 40 mg PO DAILY 09/13/17 [History] - CURRENT (IN HOUSE) MEDS Current Meds: Current Medications Acetaminophen (Tylenol) 650 mg PO Q6H PRN PRN Reason: Pain/Fever Bisacodyl (Dulcolax) 5 mg PO DAILY PRN PRN Reason: Constipation Cyclobenzaprine HCl (Flexeril) 10 mg PO TID PRN PRN Reason: Spasms Dextrose/Water (Dextrose 50% In Water) 50 ml IVPUSH ASDIRECTED PRN PRN Reason: Hypoglycemia Docusate Sodium (Colace) 100 mg PO BID MAMTA Famotidine (Pepcid) 20 mg PO Q12H MAMTA Glipizide (Glucotrol Xl) 10 mg PO DAILY MAMTA Hydromorphone HCl (Dilaudid) 0.5 mg IVPUSH Q4H PRN PRN Reason: Pain (moderate 4-6) Cefazolin Sodium/Dextrose 2 gm (/ Premix) 50 mls @ 100 mls/hr IV Q8H [facility] Stop: 09/14/17 23:59 Insulin Aspart (Novolog) 0 unit SUBCUT QIDACANDBED [facility]; Protocol Last Admin: 09/14/17 06:20 Dose: Not Given Ketorolac Tromethamine (Toradol) 15 mg IVPUSH Q6H [facility] Last Admin: 09/14/17 04:07 Dose: 15 mg Levothyroxine Sodium (Levothyroxine) 125 mcg PO ACBRK [facility] Last Admin: 09/14/17 05:15 Dose: Not Given Magnesium Hydroxide (Milk Of Magnesia) 30 ml PO BID PRN PRN Reason: Constipation Naloxone HCl (Narcan) 0.1 mg IVPUSH Q5M PRN PRN Reason: Oversedation Ondansetron HCl (Zofran) 4 mg IVPUSH Q8H PRN PRN Reason: Nausea/Vomiting Rosuvastatin Calcium (Crestor) 10 mg PO DAILY [facility] Senna (Senna) 8.6 mg PO BID PRN PRN Reason: Constipation Sodium Chloride (Saline Flush) 10 ml FLUSH ASDIRECTED PRN PRN Reason: Keep Vein Open Last Admin: 09/13/17 16:39 Dose: 10 ml Discontinued Medications Bupivacaine HCl (Marcaine 0.5%) Confirm Administered Dose 30 ml .ROUTE .STK-MED ONE Stop: 09/14/17 06:25 Bupivacaine HCl (Marcaine 0.25%) Confirm Administered Dose 30 ml .ROUTE .STK- MED ONE Stop: 09/14/17 07:20 Bupivacaine HCl (Sensorcaine-Mpf 0.75%) Confirm Administered Dose 30 ml .ROUTE .STK-MED ONE Stop: 09/14/17 07:27 Dexamethasone (Dexamethasone) Confirm Administered Dose 8 mg .ROUTE .STK-MED ONE Stop: 09/14/17 08:11 Fentanyl (Sublimaze) Confirm Administered Dose 100 mcg .ROUTE .STK-MED ONE Stop: 09/14/17 07:26 Hydromorphone HCl (Dilaudid) 0.5 mg IVPUSH ONETIME ONE Stop: 09/13/17 16:26 Last Admin: 04/20/18 16:32 Dose: 0.5 mg Hydromorphone HCl (Dilaudid) 0.5 mg IVPUSH ONETIME ONE Stop: 09/13/17 19:12 Last Admin: 09/13/17 20:37 Dose: 0.5 mg Sodium Chloride (Normal Saline) 1,000 mls @ 150 mls/hr IV ASDIRECTED MAMTA Last Admin: 09/13/17 16:39 Dose: 150 mls/hr Sodium Chloride (Sodium Chloride 0.45%) 1,000 mls @ 125 mls/hr IV ASDIRECTED [facility] Last Admin: 09/13/17 20:38 Dose: 125 mls/hr Lidocaine HCl (Xylocaine-Mpf 1%) Confirm Administered Dose 4 mls @ as directed .ROUTE .STK-MED ONE Stop: 09/14/17 07:27 Lactated Ringer's (Ringers, Lactated) Confirm Administered Dose 2,000 mls @ as directed .ROUTE .STK-MED ONE Stop: 09/14/17 08:11 Ketamine HCl (Ketalar) Confirm Administered Dose 500 mg .ROUTE .STK-MED ONE Stop: 09/14/17 07:27 Midazolam HCl (Versed 1 Mg/Ml) Confirm Administered Dose 2 mg .ROUTE .STK-MED ONE Stop: 09/14/17 07:27 Morphine Sulfate (Duramorph Pf) Confirm Administered Dose 1 mg .ROUTE .STK-MED ONE Stop: 09/14/17 07:35 Ondansetron HCl (Zofran) 4 mg IVPUSH ONETIME ONE Stop: 09/13/17 16:30 Last Admin: 09/13/17 16:38 Dose: 4 mg Ondansetron HCl (Zofran) Confirm Administered Dose 4 mg .ROUTE .STK-MED ONE Stop: 09/14/17 08:21 Propofol (Diprivan 20 Ml) Confirm Administered Dose 600 mg .ROUTE .STK-MED ONE Stop: 09/14/17 07:26
[2017-09-14] MEDS ORDERED: HYDROmorphone 0.5 MG/0.5 ML Syringe IVPUSH PRN (08:39)
--- NOTE | 2017-09-14 09:12 | PCM.POSTAN ---
POST ANESTHESIA ASSESSMENT - MENTAL STATUS Mental Status: Alert, Oriented - VITAL SIGNS Pulse Rate: 84 SaO2: 98 Resp Rate: 19 Blood Pressure: 102/42 Temperature: 38.3 C - RESPIRATORY Respiratory Status: Respiratory Rate WNL, Airway Patent, O2 Saturation Stable - CARDIOVASCULAR CV Status: Pulse Rate WNL, Blood Pressure Stable - GASTROINTESTINAL GI Status: No Symptoms - PAIN Pain Score: 0 - POST OP HYDRATION Hydration Status: Adequate & Stable
--- NOTE | 2017-09-14 10:29 | PCM.PN ---
- General Info Date of Service: 09/14/17 Functional Status: Reports: Pain Controlled, Tolerating Diet, Urinating - Review of Systems General: Reports: No Symptoms HEENT: Reports: No Symptoms Pulmonary: Reports: No Symptoms Cardiovascular: Reports: No Symptoms Gastrointestinal: Reports: No Symptoms Genitourinary: Reports: No Symptoms Musculoskeletal: Reports: No Symptoms Skin: Reports: No Symptoms Neurological: Reports: No Symptoms Psychiatric: Reports: No Symptoms - Patient Data Vitals - Most Recent: Last Vital Signs Temp 37.2 C 09/14/17 10:03 Pulse 84 09/14/17 09:12 Resp 16 09/14/17 10:03 BP 91/51 L 09/14/17 10:03 Pulse Ox 93 L 09/14/17 10:03 Weight - Most Recent: 86.228 kg I&O - Last 24 Hours: Intake & Output 09/13/17 09/14/17 09/14/17 22:59 06:59 14:59 Intake Total 1101 Output Total 650 Balance 451 Lab Results Last 24 Hours: Laboratory Results - last 24 hr 09/13/17 09/13/17 09/13/17 Range/Units 16:45 16:45 16:45 WBC 23.04 H (3.98-10.04) K/mm3 RBC 5.51 H (3.98-5.22) M/mm3 Hgb 17.3 H (11.2-15.7) gm/L Hct 50.6 H (34.1-44.9) % MCV 91.8 (79.4-94.8) fl MCH 31.4 (25.6-32.2) pg MCHC 34.2 (32.2-35.5) g/dl RDW Std Deviation 41.2 (36.4-46.3) fL Plt Count 260 (182-369) K/mm3 MPV 11.5 (9.4-12.3) fl Neut % (Auto) (34.0-71.1) % Lymph % (Auto) (19.3-51.7) % [place] % (Auto) (4.7-12.5) % Eos % (Auto) (0.7-5.8) Baso % (Auto) (0.1-1.2) % Neut # (Auto) (1.56-6.13) K/mm3 Lymph # (Auto) (1.18-3.74) K/mm3 [place] # (Auto) (0.24-0.36) K/mm3 Eos # (Auto) (0.04-0.36) K/mm3 Baso # (Auto) (0.01-0.08) K/mm3 Neutrophils % (Manual) 90 H (40-60) % Band Neutrophils % 0 (0-10) % Lymphocytes % (Manual) 6 L (20-40) % Atypical Lymphs % 0 % Monocytes % (Manual) 4 (2-10) % Eosinophils % (Manual) 0 L (0.7-5.8) % Basophils % (Manual) 0 L (0.1-1.2) Manual Slide Review Platelet Estimate Adequate RBC Morph Comment Normal PT 10.3 (9.5-12.1) SECONDS INR 0.94 APTT 25 (24-31) SECONDS Sodium 141 (136-145) mEq/L Potassium 4.0 (3.5-5.1) mEq/L Chloride 106 (98-107) mEq/L Carbon Dioxide 28 (21-32) mEq/L Anion Gap 11.0 (5-15) BUN 25 H (7-18) mg/dL Creatinine 0.8 (0.55-1.02) mg/dL Est Cr Clr Drug Dosing 65.45 mL/min Estimated GFR (MDRD) > 60 (>60) mL/min BUN/Creatinine Ratio 31.3 H (14-18) Glucose 187 H (80-115) mg/dL POC Glucose (80-115) mg/dL Calcium 9.3 (8.5-10.1) mg/dL Magnesium (1.8-2.4) mg/dl Total Bilirubin 0.4 (0.2-1.0) mg/dL AST 23 (15-37) U/L ALT 29 (14-59) U/L Alkaline Phosphatase 59 (46-116) U/L C-Reactive Protein (<1.0) mg/dL Total Protein 5.6 L (6.4-8.2) g/dl Albumin 2.5 L (3.4-5.0) g/dl Globulin 3.1 gm/dL Albumin/Globulin Ratio 0.8 L (1-2) Triglycerides (<150) mg/dL Cholesterol (<200) mg/dL LDL Cholesterol Direct (<100) mg/dL HDL Cholesterol (40-59) mg/dL Urine Color (Yellow) Urine Appearance (Clear) Urine pH (5.0-8.0) Ur Specific [place] (1.005-1.030) Urine Protein (Negative) Urine Glucose (UA) (Negative) Urine Ketones (Negative) Urine Occult Blood (Negative) Urine Nitrite (Negative) Urine Bilirubin (Negative) Urine Urobilinogen (0.2-1.0) Ur Leukocyte Esterase (Negative) Urine RBC (0-5) /hpf Urine WBC (0-5) /hpf Ur Epithelial Cells (0-5) /hpf Urine Bacteria (FEW) /hpf Urine Mucus (FEW) /hpf MRSA (PCR) 09/13/17 09/13/17 09/13/17 Range/Units 21:23 21:30 21:30 WBC (3.98-10.04) K/mm3 RBC (3.98-5.22) M/mm3 Hgb (11.2-15.7) gm/L Hct (34.1-44.9) % MCV (79.4-94.8) fl MCH (25.6-32.2) pg MCHC (32.2-35.5) g/dl RDW Std Deviation (36.4-46.3) fL Plt Count (182-369) K/mm3 MPV (9.4-12.3) fl Neut % (Auto) (34.0-71.1) % Lymph % (Auto) (19.3-51.7) % [place] % (Auto) (4.7-12.5) % Eos % (Auto) (0.7-5.8) Baso % (Auto) (0.1-1.2) % Neut # (Auto) (1.56-6.13) K/mm3 Lymph # (Auto) (1.18-3.74) K/mm3 [place] # (Auto) (0.24-0.36) K/mm3 Eos # (Auto) (0.04-0.36) K/mm3 Baso # (Auto) (0.01-0.08) K/mm3 Neutrophils % (Manual) (40-60) % Band Neutrophils % (0-10) % Lymphocytes % (Manual) (20-40) % Atypical Lymphs % % Monocytes % (Manual) (2-10) % Eosinophils % (Manual) (0.7-5.8) % Basophils % (Manual) (0.1-1.2) Manual Slide Review Platelet Estimate RBC Morph Comment PT (9.5-12.1) SECONDS INR APTT (24-31) SECONDS Sodium (136-145) mEq/L Potassium (3.5-5.1) mEq/L Chloride (98-107) mEq/L Carbon Dioxide (21-32) mEq/L Anion Gap (5-15) BUN (7-18) mg/dL Creatinine (0.55-1.02) mg/dL Est Cr Clr Drug Dosing mL/min Estimated GFR (MDRD) (>60) mL/min BUN/Creatinine Ratio (14-18) Glucose (80-115) mg/dL POC Glucose 172 H (80-115) mg/dL Calcium (8.5-10.1) mg/dL Magnesium (1.8-2.4) mg/dl Total Bilirubin (0.2-1.0) mg/dL AST (15-37) U/L ALT (14-59) U/L Alkaline Phosphatase (46-116) U/L C-Reactive Protein (<1.0) mg/dL Total Protein (6.4-8.2) g/dl Albumin (3.4-5.0) g/dl Globulin gm/dL Albumin/Globulin Ratio (1-2) Triglycerides (<150) mg/dL Cholesterol (<200) mg/dL LDL Cholesterol Direct (<100) mg/dL HDL Cholesterol (40-59) mg/dL Urine Color Yellow (Yellow) Urine Appearance Clear (Clear) Urine pH 5.5 (5.0-8.0) Ur Specific [place] > or = 1.030 (1.005-1.030) Urine Protein Trace H (Negative) Urine Glucose (UA) Negative (Negative) Urine Ketones Negative (Negative) Urine Occult Blood Negative (Negative) Urine Nitrite Negative (Negative) Urine Bilirubin Negative (Negative) Urine Urobilinogen 0.2 (0.2-1.0) Ur Leukocyte Esterase Negative (Negative) Urine RBC 0-5 (0-5) /hpf Urine WBC 0-5 (0-5) /hpf Ur Epithelial Cells 0-5 (0-5) /hpf Urine Bacteria Occasional (FEW) /hpf Urine Mucus Few (FEW) /hpf MRSA (PCR) Negative 09/14/17 09/14/17 09/14/17 Range/Units 05:40 05:40 06:01 WBC 13.33 H (3.98-10.04) K/mm3 RBC 4.74 (3.98-5.22) M/mm3 Hgb 15.1 (11.2-15.7) gm/L Hct 44.4 (34.1-44.9) % MCV 93.7 (79.4-94.8) fl MCH 31.9 (25.6-32.2) pg MCHC 34.0 (32.2-35.5) g/dl RDW Std Deviation 41.6 (36.4-46.3) fL Plt Count 215 (182-369) K/mm3 MPV 11.9 (9.4-12.3) fl Neut % (Auto) 84.3 H (34.0-71.1) % Lymph % (Auto) 7.7 L (19.3-51.7) % [place] % (Auto) 5.9 (4.7-12.5) % Eos % (Auto) 1.7 (0.7-5.8) Baso % (Auto) 0.2 (0.1-1.2) % Neut # (Auto) 11.23 H (1.56-6.13) K/mm3 Lymph # (Auto) 1.03 L (1.18-3.74) K/mm3 [place] # (Auto) 0.78 H (0.24-0.36) K/mm3 Eos # (Auto) 0.23 (0.04-0.36) K/mm3 Baso # (Auto) 0.03 (0.01-0.08) K/mm3 Neutrophils % (Manual) (40-60) % Band Neutrophils % (0-10) % Lymphocytes % (Manual) (20-40) % Atypical Lymphs % % Monocytes % (Manual) (2-10) % Eosinophils % (Manual) (0.7-5.8) % Basophils % (Manual) (0.1-1.2) Manual Slide Review Abnormal smear Platelet Estimate RBC Morph Comment PT (9.5-12.1) SECONDS INR APTT (24-31) SECONDS Sodium 139 (136-145) mEq/L Potassium 4.1 (3.5-5.1) mEq/L Chloride 106 (98-107) mEq/L Carbon Dioxide 27 (21-32) mEq/L Anion Gap 10.1 (5-15) BUN 19 H (7-18) mg/dL Creatinine 0.7 (0.55-1.02) mg/dL Est Cr Clr Drug Dosing 74.80 mL/min Estimated GFR (MDRD) > 60 (>60) mL/min BUN/Creatinine Ratio 27.1 H (14-18) Glucose 151 H (80-115) mg/dL POC Glucose 135 H (80-115) mg/dL Calcium 8.5 (8.5-10.1) mg/dL Magnesium 2.0 (1.8-2.4) mg/dl Total Bilirubin (0.2-1.0) mg/dL AST (15-37) U/L ALT (14-59) U/L Alkaline Phosphatase (46-116) U/L C-Reactive Protein 3.4 H* (<1.0) mg/dL Total Protein (6.4-8.2) g/dl Albumin (3.4-5.0) g/dl Globulin gm/dL Albumin/Globulin Ratio (1-2) Triglycerides 41 (<150) mg/dL Cholesterol 147 (<200) mg/dL LDL Cholesterol Direct 88 (<100) mg/dL HDL Cholesterol 51.0 (40-59) mg/dL Urine Color (Yellow) Urine Appearance (Clear) Urine pH (5.0-8.0) Ur Specific [place] (1.005-1.030) Urine Protein (Negative) Urine Glucose (UA) (Negative) Urine Ketones (Negative) Urine Occult Blood (Negative) Urine Nitrite (Negative) Urine Bilirubin (Negative) Urine Urobilinogen (0.2-1.0) Ur Leukocyte Esterase (Negative) Urine RBC (0-5) /hpf Urine WBC (0-5) /hpf Ur Epithelial Cells (0-5) /hpf Urine Bacteria (FEW) /hpf Urine Mucus (FEW) /hpf MRSA (PCR) Med Orders - Current: Current Medications Acetaminophen (Tylenol) 650 mg PO Q6H PRN PRN Reason: Pain/Fever Hydrocodone Bitart/Acetaminophen ([place] 325-5 Mg) 1 - 2 tab PO Q4H PRN PRN Reason: Pain Aspirin (Ecotrin) 325 mg PO BID [facility], [facility]1983 Bisacodyl (Dulcolax) 5 mg PO DAILY PRN PRN Reason: Constipation Cyclobenzaprine HCl (Flexeril) 10 mg PO TID PRN PRN Reason: Spasms Dextrose/Water (Dextrose 50% In Water) 50 ml IVPUSH ASDIRECTED PRN PRN Reason: Hypoglycemia Docusate Sodium (Colace) 100 mg PO BID [facility], [facility]1983 Famotidine (Pepcid) 20 mg PO Q12H [facility]1983 Fentanyl (Sublimaze) 50 mcg IVPUSH Q5M PRN PRN Reason: Pain Glipizide (Glucotrol Xl) 10 mg PO DAILY [facility]1983 Hydromorphone HCl (Dilaudid) 0.5 mg IVPUSH Q4H PRN PRN Reason: Pain (moderate 4-6) Hydromorphone HCl (Dilaudid) 0.5 mg IVPUSH ASDIRECTED PRN PRN Reason: Severe Pain Cefazolin Sodium/Dextrose 2 gm (/ Premix) 50 mls @ 100 mls/hr IV Q8H [facility]1983 Insulin Aspart (Novolog) 0 unit SUBCUT QIDACANDBED [facility]MERLY [facility], 1928–1983; Protocol Last Admin: 09/14/17 06:20 Dose: Not Given Ketorolac Tromethamine (Toradol) 15 mg IVPUSH Q6H [facility] Last Admin: 09/14/17 04:07 Dose: 15 mg Levothyroxine Sodium (Levothyroxine) 125 mcg PO ACBRK [facility] Last Admin: 09/14/17 05:15 Dose: Not Given Magnesium Hydroxide (Milk Of Magnesia) 30 ml PO BID PRN PRN Reason: Constipation Meperidine HCl (Demerol) 12.5 mg IVPUSH ONETIME PRN PRN Reason: Shivering Naloxone HCl (Narcan) 0.1 mg IVPUSH Q5M PRN PRN Reason: Oversedation Ondansetron HCl (Zofran) 4 mg IVPUSH Q8H PRN PRN Reason: Nausea/Vomiting Ondansetron HCl (Zofran) 4 mg IVPUSH ONETIME PRN PRN Reason: Nausea/Vomiting Rosuvastatin Calcium (Crestor) 10 mg PO DAILY [facility] Senna (Senna) 8.6 mg PO BID PRN PRN Reason: Constipation Sodium Chloride (Saline Flush) 10 ml FLUSH ASDIRECTED PRN PRN Reason: Keep Vein Open Last Admin: 09/13/17 16:39 Dose: 10 ml Discontinued Medications Albuterol (Proventil Neb Soln) 2.5 mg NEB ONETIME ONE Stop: 09/14/17 08:29 Bupivacaine HCl (Marcaine 0.5%) Confirm Administered Dose 30 ml .ROUTE .STK-MED ONE Stop: 09/14/17 06:25 Bupivacaine HCl (Marcaine 0.25%) Confirm Administered Dose 30 ml .ROUTE .STK- MED ONE Stop: 09/14/17 07:20 Last Admin: 09/14/17 08:55 Dose: 8 ml Bupivacaine HCl (Sensorcaine-Mpf 0.75%) Confirm Administered Dose 30 ml .ROUTE .STK-MED ONE Stop: 09/14/17 07:27 Dexamethasone (Dexamethasone) Confirm Administered Dose 8 mg .ROUTE .STK-MED ONE Stop: 09/14/17 08:11 Fentanyl (Sublimaze) Confirm Administered Dose 100 mcg .ROUTE .STK-MED ONE Stop: 09/14/17 07:26 Hydromorphone HCl (Dilaudid) 0.5 mg IVPUSH ONETIME ONE Stop: 09/13/17 16:26 Last Admin: 09/13/17 16:32 Dose: 0.5 mg Hydromorphone HCl (Dilaudid) 0.5 mg IVPUSH ONETIME ONE Stop: 09/13/17 19:12 Last Admin: 09/13/17 20:37 Dose: 0.5 mg Hydromorphone HCl (Dilaudid) 0.5 mg IV ASDIRECTED PRN PRN Reason: Severe Pain Sodium Chloride (Normal Saline) 1,000 mls @ 150 mls/hr IV ASDIRECTED [facility], [facility] Last Admin: 09/13/17 16:39 Dose: 150 mls/hr Sodium Chloride (Sodium Chloride 0.45%) 1,000 mls @ 125 mls/hr IV ASDIRECTED [facility], [facility] Last Admin: 09/13/17 20:38 Dose: 125 mls/hr Lidocaine HCl (Xylocaine-Mpf 1%) Confirm Administered Dose 4 mls @ as directed .ROUTE .STK-MED ONE Stop: 09/14/17 07:27 Lactated Ringer's (Ringers, Lactated) Confirm Administered Dose 2,000 mls @ as directed .ROUTE .STK-MED ONE Stop: 09/14/17 08:11 Ketamine HCl (Ketalar) Confirm Administered Dose 500 mg .ROUTE .STK-MED ONE Stop: 09/14/17 07:27 Midazolam HCl (Versed 1 Mg/Ml) Confirm Administered Dose 2 mg .ROUTE .STK-MED ONE Stop: 09/14/17 07:27 Morphine Sulfate (Duramorph Pf) Confirm Administered Dose 1 mg .ROUTE .STK-MED ONE Stop: 09/14/17 07:35 Ondansetron HCl (Zofran) 4 mg IVPUSH ONETIME ONE Stop: 09/13/17 16:30 Last Admin: 09/13/17 16:38 Dose: 4 mg Ondansetron HCl (Zofran) Confirm Administered Dose 4 mg .ROUTE .STK-MED ONE Stop: 09/14/17 08:21 Propofol (Diprivan 20 Ml) Confirm Administered Dose 600 mg .ROUTE .STK-MED ONE Stop: 09/14/17 07:26 - Exam Quality Assessment: Supplemental Oxygen, DVT Prophylaxis General: Alert, Oriented, Cooperative, No Acute Distress HEENT: Pupils Equal, Pupils Reactive, EOMI Neck: No JVD Lungs: Normal Respiratory Effort Cardiovascular: Regular Rate, Regular Rhythm GI/Abdominal Exam: Normal Bowel Sounds, Soft, Non-Tender, No Organomegaly, No Distention (Female) Exam: Deferred Back Exam: Normal Inspection Extremities: Normal Inspection Skin: Warm Neurological: No New Focal Deficit, Normal Speech Psy/Mental Status: Alert, Normal Affect, Normal Mood - Problem List Review Problem List Initiated/Reviewed/Updated: Yes - My Orders Last 24 Hours: My Active Orders 09/13/17 19:12 Resuscitation Status Routine 09/13/17 19:44 Blood Glucose Check, Bedside [RC] QIDACANDBED Dextrose 50% in Water 50 ml IVPUSH ASDIRECTED PRN 09/13/17 19:45 HYDROmorphone [Dilaudid] 0.5 mg IVPUSH Q4H PRN 09/13/17 19:49 Urinary Catheter Assessment [RC] 04,10,16,22 09/13/17 19:51 Ondansetron [Zofran] 4 mg IVPUSH Q8H PRN 09/13/17 19:56 Consult to [place] [CONS] Routine 09/13/17 19:57 Consult to Occupational Therapy [OT Evaluation and Treatment] [CONS] Routine Consult to Physical Therapy [PT Evaluation and Treatment] [CONS] Routine 09/13/17 19:59 Acetaminophen [Tylenol] 650 mg PO Q6H PRN 09/13/17 20:00 Insert [place] Catheter [Insert Urinary Catheter] [OM.PC] Q24H Ketorolac [Toradol] 15 mg IVPUSH Q6H 09/13/17 22:00 Insulin Aspart [NovoLOG] See Protocol SUBCUT QIDACANDBED 09/14/17 06:00 Levothyroxine 125 mcg PO ACBRK 09/14/17 09:00 Alogliptin Benzoate [Alogliptin] 25 mg PO DAILY Rosuvastatin [Crestor] 10 mg PO DAILY glipiZIDE [Glucotrol XL] 10 mg PO DAILY 09/14/17 Breakfast NPO After Midnight [Nothing per Oral After Midnight Diet] [DIET] 09/15/17 05:00 BMP [BASIC METABOLIC PANEL,BMP] [CHEM] DAILY CBC WITH AUTO DIFF [HEME] DAILY CRP [C-REACTIVE PROTEIN] [CHEM] DAILY GLYCOSYLATED HEMOGLOBIN,HGBA1C [CHEM] Routine MAGNESIUM [CHEM] DAILY 09/16/17 05:00 BMP [BASIC METABOLIC PANEL,BMP] [CHEM] DAILY CBC WITH AUTO DIFF [HEME] DAILY CRP [C-REACTIVE PROTEIN] [CHEM] DAILY MAGNESIUM [CHEM] DAILY 09/17/17 05:00 BMP [BASIC METABOLIC PANEL,BMP] [CHEM] DAILY CBC WITH AUTO DIFF [HEME] DAILY CRP [C-REACTIVE PROTEIN] [CHEM] DAILY MAGNESIUM [CHEM] DAILY - Plan Plan:: Impression: S/P fall with subsequent closed right hip fracture; POST OP NAUSEA, DIET CHANGED TO NPO COPD with active tobacco use; no interest in quitting HTN DM type 2 HLD on a statin Plan: IVF Hold Metformin Home meds Pain meds; Toradol as tolerated Pre op labs; scheduled as per Ortho NPO after MN except meds Check HgB, DM ed and teaching Dietary consultation Nicotine replacement and tobacco cessation education Consult PT/OT/SW post op; expected hosp stay 96 hours DVT/GI prophylaxis
[2017-09-14] MEDS: Rosuvastatin 10 MG Tab PO SCH (11:21)
[2017-09-14] MEDS: Famotidine 20 MG Tab PO SCH ×2 (11:21→18:35)
[2017-09-14] MEDS: Docusate Sodium 100 MG Cap PO SCH ×2 (11:22→20:59)
[2017-09-14] MEDS: glipiZIDE 5 MG Tab.ER PO SCH (11:22)
--- NOTE | 2017-09-14 12:40 | PCM.CONS ---
H&P History of Present Illness - General Date of Service: 09/13/17 Admit Problem/Dx: Admission Diagnosis/Problem Admission Diagnosis/Problem Hip fracture requiring operative repair Source of Information: Patient, Provider History Limitations: Reports: No Limitations - History of Present Illness Initial Comments - Free Text/Narative: This is a 67 year old female who presented to the ED after a fall when walking her dog. She subsequently landed on her right side and had right hip pain and also hit her head. She denies loss of consciousness and is complaining of right hip pain. She denies every having hip pain before this fall. After the fall patient did ambulate to get home but did have severe pain in the right hip. She was brought the ED where she was found to have a valgus impacted subcapital femoral neck fracture. She did undergo a full workup and a CT scan of her head. Right Hip Pain Score (Numeric/FACES): 10 - Related Data Allergies/Adverse Reactions: Allergies Allergy/AdvReac Type Severity Reaction Status Date / Time spironolactone Allergy Itching Verified 03/31/14 10:31 Sulfa (Sulfonamide Allergy Rash Verified 03/31/14 10:31 Antibiotics) Home Medications: Home Meds Furosemide [Lasix] 40 mg PO DAILY 03/31/14 [History] Levothyroxine [Synthroid] 125 mcg PO DAILY 03/31/14 [History] glipiZIDE [Glipizide ER] 10 mg PO DAILY 03/31/14 [History] metFORMIN HCl [Metformin HCl ER] 750 mg PO DAILY 03/31/14 [History] SitaGLIPtin [Januvia] 100 mg PO DAILY 09/13/17 [History] atorvaSTATin [Lipitor] 40 mg PO DAILY 09/13/17 [History] Past Medical History HEENT History: Reports: Cataract, Impaired Vision, Other (See Below) Other HEENT History: wears glasses Gastrointestinal History: Reports: Other (See Below) Other Gastrointestinal History: benign neoplasm of the colon [employer] History: Reports: Musculoskeletal History: Reports: Other (See Below) Other Musculoskeletal History: 2 right surgery to knee Psychiatric History: Reports: Anxiety Endocrine/Metabolic History: Reports: Diabetes, Type II, Hypothyroidism Oncologic (Cancer) History: Reports: Other (See Below) Other Oncologic History: stated she has/had skin cancer. Dermatologic History: Reports: Other (See Below) Other Dermatologic History: stated she had skin cancer - Past Surgical History GI Surgical History: Reports: Cholecystectomy Musculoskeletal Surgical History: Reports: Carpal Tunnel Social & Family History - Family History Family Medical History: Noncontributory - Tobacco Use Smoking Status *Q: Current Every Day Smoker Years of Tobacco use: 50 Packs/Tins Daily: 1.5 - Caffeine Use Caffeine Use: Reports: Coffee, Soda - Alcohol Use Days Per Week of Alcohol Use: 0 Number of Drinks Per Day: 0 Total Drinks Per Week: 0 - Recreational Drug Use Recreational Drug Use: No Drug Use in Last 12 Months: No H&P Review of Systems - Review of Systems: Review Of Systems: ROS reveals no pertinent complaints other than HPI. Exam - Exam Exam: See Below - Vital Signs Vital Signs: Last Vital Signs Temp 37.2 C 09/14/17 10:03 Pulse 84 09/14/17 09:12 Resp 16 09/14/17 10:03 BP 91/51 L 09/14/17 10:03 Pulse Ox 93 L 09/14/17 10:03 Weight: 86.228 kg - Exam General: Alert, Oriented Physical Exam Comments:: Pelvis: stable to AP and lateral compression RLE: pain with log roll of the right hip, skin is intact, it is flexed in 30 degrees and it is neutral alignment with no shortening noted, no tenderness about the right knee, able to dorsiflex and plantarflex her ankle and great toe , sensation intact to light touch to the medial, lateral, plantar, first dorsal webspace, she does having pitting edema noted in the lower extremities, good capillary refill - Patient Data Lab Results Last 24 hrs: Laboratory Results - last 24 hr 09/13/17 09/13/17 09/13/17 Range/Units 16:45 16:45 16:45 WBC 23.04 H (3.98-10.04) K/mm3 RBC 5.51 H (3.98-5.22) M/mm3 Hgb 17.3 H (11.2-15.7) gm/L Hct 50.6 H (34.1-44.9) % MCV 91.8 (79.4-94.8) fl MCH 31.4 (25.6-32.2) pg MCHC 34.2 (32.2-35.5) g/dl RDW Std Deviation 41.2 (36.4-46.3) fL Plt Count 260 (182-369) K/mm3 MPV 11.5 (9.4-12.3) fl Neut % (Auto) (34.0-71.1) % Lymph % (Auto) (19.3-51.7) % [place] % (Auto) (4.7-12.5) % Eos % (Auto) (0.7-5.8) Baso % (Auto) (0.1-1.2) % Neut # (Auto) (1.56-6.13) K/mm3 Lymph # (Auto) (1.18-3.74) K/mm3 [place] # (Auto) (0.24-0.36) K/mm3 Eos # (Auto) (0.04-0.36) K/mm3 Baso # (Auto) (0.01-0.08) K/mm3 Neutrophils % (Manual) 90 H (40-60) % Band Neutrophils % 0 (0-10) % Lymphocytes % (Manual) 6 L (20-40) % Atypical Lymphs % 0 % Monocytes % (Manual) 4 (2-10) % Eosinophils % (Manual) 0 L (0.7-5.8) % Basophils % (Manual) 0 L (0.1-1.2) Manual Slide Review Platelet Estimate Adequate RBC Morph Comment Normal PT 10.3 (9.5-12.1) SECONDS INR 0.94 APTT 25 (24-31) SECONDS Sodium 141 (136-145) mEq/L Potassium 4.0 (3.5-5.1) mEq/L Chloride 106 (98-107) mEq/L Carbon Dioxide 28 (21-32) mEq/L Anion Gap 11.0 (5-15) BUN 25 H (7-18) mg/dL Creatinine 0.8 (0.55-1.02) mg/dL Est Cr Clr Drug Dosing 65.45 mL/min Estimated GFR (MDRD) > 60 (>60) mL/min BUN/Creatinine Ratio 31.3 H (14-18) Glucose 187 H (80-115) mg/dL POC Glucose (80-115) mg/dL Calcium 9.3 (8.5-10.1) mg/dL Magnesium (1.8-2.4) mg/dl Total Bilirubin 0.4 (0.2-1.0) mg/dL AST 23 (15-37) U/L ALT 29 (14-59) U/L Alkaline Phosphatase 59 (46-116) U/L C-Reactive Protein (<1.0) mg/dL Total Protein 5.6 L (6.4-8.2) g/dl Albumin 2.5 L (3.4-5.0) g/dl Globulin 3.1 gm/dL Albumin/Globulin Ratio 0.8 L (1-2) Triglycerides (<150) mg/dL Cholesterol (<200) mg/dL LDL Cholesterol Direct (<100) mg/dL HDL Cholesterol (40-59) mg/dL Urine Color (Yellow) Urine Appearance (Clear) Urine pH (5.0-8.0) Ur Specific [place] (1.005-1.030) Urine Protein (Negative) Urine Glucose (UA) (Negative) Urine Ketones (Negative) Urine Occult Blood (Negative) Urine Nitrite (Negative) Urine Bilirubin (Negative) Urine Urobilinogen (0.2-1.0) Ur Leukocyte Esterase (Negative) Urine RBC (0-5) /hpf Urine WBC (0-5) /hpf Ur Epithelial Cells (0-5) /hpf Urine Bacteria (FEW) /hpf Urine Mucus (FEW) /hpf MRSA (PCR) 09/13/17 09/13/17 09/13/17 Range/Units 21:23 21:30 21:30 WBC (3.98-10.04) K/mm3 RBC (3.98-5.22) M/mm3 Hgb (11.2-15.7) gm/L Hct (34.1-44.9) % MCV (79.4-94.8) fl MCH (25.6-32.2) pg MCHC (32.2-35.5) g/dl RDW Std Deviation (36.4-46.3) fL Plt Count (182-369) K/mm3 MPV (9.4-12.3) fl Neut % (Auto) (34.0-71.1) % Lymph % (Auto) (19.3-51.7) % [place] % (Auto) (4.7-12.5) % Eos % (Auto) (0.7-5.8) Baso % (Auto) (0.1-1.2) % Neut # (Auto) (1.56-6.13) K/mm3 Lymph # (Auto) (1.18-3.74) K/mm3 [place] # (Auto) (0.24-0.36) K/mm3 Eos # (Auto) (0.04-0.36) K/mm3 Baso # (Auto) (0.01-0.08) K/mm3 Neutrophils % (Manual) (40-60) % Band Neutrophils % (0-10) % Lymphocytes % (Manual) (20-40) % Atypical Lymphs % % Monocytes % (Manual) (2-10) % Eosinophils % (Manual) (0.7-5.8) % Basophils % (Manual) (0.1-1.2) Manual Slide Review Platelet Estimate RBC Morph Comment PT (9.5-12.1) SECONDS INR APTT (24-31) SECONDS Sodium (136-145) mEq/L Potassium (3.5-5.1) mEq/L Chloride (98-107) mEq/L Carbon Dioxide (21-32) mEq/L Anion Gap (5-15) BUN (7-18) mg/dL Creatinine (0.55-1.02) mg/dL Est Cr Clr Drug Dosing mL/min Estimated GFR (MDRD) (>60) mL/min BUN/Creatinine Ratio (14-18) Glucose (80-115) mg/dL POC Glucose 172 H (80-115) mg/dL Calcium (8.5-10.1) mg/dL Magnesium (1.8-2.4) mg/dl Total Bilirubin (0.2-1.0) mg/dL AST (15-37) U/L ALT (14-59) U/L Alkaline Phosphatase (46-116) U/L C-Reactive Protein (<1.0) mg/dL Total Protein (6.4-8.2) g/dl Albumin (3.4-5.0) g/dl Globulin gm/dL Albumin/Globulin Ratio (1-2) Triglycerides (<150) mg/dL Cholesterol (<200) mg/dL LDL Cholesterol Direct (<100) mg/dL HDL Cholesterol (40-59) mg/dL Urine Color Yellow (Yellow) Urine Appearance Clear (Clear) Urine pH 5.5 (5.0-8.0) Ur Specific [place] > or = 1.030 (1.005-1.030) Urine Protein Trace H (Negative) Urine Glucose (UA) Negative (Negative) Urine Ketones Negative (Negative) Urine Occult Blood Negative (Negative) Urine Nitrite Negative (Negative) Urine Bilirubin Negative (Negative) Urine Urobilinogen 0.2 (0.2-1.0) Ur Leukocyte Esterase Negative (Negative) Urine RBC 0-5 (0-5) /hpf Urine WBC 0-5 (0-5) /hpf Ur Epithelial Cells 0-5 (0-5) /hpf Urine Bacteria Occasional (FEW) /hpf Urine Mucus Few (FEW) /hpf MRSA (PCR) Negative 09/14/17 09/14/17 09/14/17 Range/Units 05:40 05:40 06:01 WBC 13.33 H (3.98-10.04) K/mm3 RBC 4.74 (3.98-5.22) M/mm3 Hgb 15.1 (11.2-15.7) gm/L Hct 44.4 (34.1-44.9) % MCV 93.7 (79.4-94.8) fl MCH 31.9 (25.6-32.2) pg MCHC 34.0 (32.2-35.5) g/dl RDW Std Deviation 41.6 (36.4-46.3) fL Plt Count 215 (182-369) K/mm3 MPV 11.9 (9.4-12.3) fl Neut % (Auto) 84.3 H (34.0-71.1) % Lymph % (Auto) 7.7 L (19.3-51.7) % [place] % (Auto) 5.9 (4.7-12.5) % Eos % (Auto) 1.7 (0.7-5.8) Baso % (Auto) 0.2 (0.1-1.2) % Neut # (Auto) 11.23 H (1.56-6.13) K/mm3 Lymph # (Auto) 1.03 L (1.18-3.74) K/mm3 [place] # (Auto) 0.78 H (0.24-0.36) K/mm3 Eos # (Auto) 0.23 (0.04-0.36) K/mm3 Baso # (Auto) 0.03 (0.01-0.08) K/mm3 Neutrophils % (Manual) (40-60) % Band Neutrophils % (0-10) % Lymphocytes % (Manual) (20-40) % Atypical Lymphs % % Monocytes % (Manual) (2-10) % Eosinophils % (Manual) (0.7-5.8) % Basophils % (Manual) (0.1-1.2) Manual Slide Review Abnormal smear Platelet Estimate RBC Morph Comment PT (9.5-12.1) SECONDS INR APTT (24-31) SECONDS Sodium 139 (136-145) mEq/L Potassium 4.1 (3.5-5.1) mEq/L Chloride 106 (98-107) mEq/L Carbon Dioxide 27 (21-32) mEq/L Anion Gap 10.1 (5-15) BUN 19 H (7-18) mg/dL Creatinine 0.7 (0.55-1.02) mg/dL Est Cr Clr Drug Dosing 74.80 mL/min Estimated GFR (MDRD) > 60 (>60) mL/min BUN/Creatinine Ratio 27.1 H (14-18) Glucose 151 H (80-115) mg/dL POC Glucose 135 H (80-115) mg/dL Calcium 8.5 (8.5-10.1) mg/dL Magnesium 2.0 (1.8-2.4) mg/dl Total Bilirubin (0.2-1.0) mg/dL AST (15-37) U/L ALT (14-59) U/L Alkaline Phosphatase (46-116) U/L C-Reactive Protein 3.4 H* (<1.0) mg/dL Total Protein (6.4-8.2) g/dl Albumin (3.4-5.0) g/dl Globulin gm/dL Albumin/Globulin Ratio (1-2) Triglycerides 41 (<150) mg/dL Cholesterol 147 (<200) mg/dL LDL Cholesterol Direct 88 (<100) mg/dL HDL Cholesterol 51.0 (40-59) mg/dL Urine Color (Yellow) Urine Appearance (Clear) Urine pH (5.0-8.0) Ur Specific [place] (1.005-1.030) Urine Protein (Negative) Urine Glucose (UA) (Negative) Urine Ketones (Negative) Urine Occult Blood (Negative) Urine Nitrite (Negative) Urine Bilirubin (Negative) Urine Urobilinogen (0.2-1.0) Ur Leukocyte Esterase (Negative) Urine RBC (0-5) /hpf Urine WBC (0-5) /hpf Ur Epithelial Cells (0-5) /hpf Urine Bacteria (FEW) /hpf Urine Mucus (FEW) /hpf MRSA (PCR) 09/14/17 Range/Units 10:43 WBC (3.98-10.04) K/mm3 RBC (3.98-5.22) M/mm3 Hgb (11.2-15.7) gm/L Hct (34.1-44.9) % MCV (79.4-94.8) fl MCH (25.6-32.2) pg MCHC (32.2-35.5) g/dl RDW Std Deviation (36.4-46.3) fL Plt Count (182-369) K/mm3 MPV (9.4-12.3) fl Neut % (Auto) (34.0-71.1) % Lymph % (Auto) (19.3-51.7) % [place] % (Auto) (4.7-12.5) % Eos % (Auto) (0.7-5.8) Baso % (Auto) (0.1-1.2) % Neut # (Auto) (1.56-6.13) K/mm3 Lymph # (Auto) (1.18-3.74) K/mm3 [place] # (Auto) (0.24-0.36) K/mm3 Eos # (Auto) (0.04-0.36) K/mm3 Baso # (Auto) (0.01-0.08) K/mm3 Neutrophils % (Manual) (40-60) % Band Neutrophils % (0-10) % Lymphocytes % (Manual) (20-40) % Atypical Lymphs % % Monocytes % (Manual) (2-10) % Eosinophils % (Manual) (0.7-5.8) % Basophils % (Manual) (0.1-1.2) Manual Slide Review Platelet Estimate RBC Morph Comment PT (9.5-12.1) SECONDS INR APTT (24-31) SECONDS Sodium (136-145) mEq/L Potassium (3.5-5.1) mEq/L Chloride (98-107) mEq/L Carbon Dioxide (21-32) mEq/L Anion Gap (5-15) BUN (7-18) mg/dL Creatinine (0.55-1.02) mg/dL Est Cr Clr Drug Dosing mL/min Estimated GFR (MDRD) (>60) mL/min BUN/Creatinine Ratio (14-18) Glucose (80-115) mg/dL POC Glucose 162 H (80-115) mg/dL Calcium (8.5-10.1) mg/dL Magnesium (1.8-2.4) mg/dl Total Bilirubin (0.2-1.0) mg/dL AST (15-37) U/L ALT (14-59) U/L Alkaline Phosphatase (46-116) U/L C-Reactive Protein (<1.0) mg/dL Total Protein (6.4-8.2) g/dl Albumin (3.4-5.0) g/dl Globulin gm/dL Albumin/Globulin Ratio (1-2) Triglycerides (<150) mg/dL Cholesterol (<200) mg/dL LDL Cholesterol Direct (<100) mg/dL HDL Cholesterol (40-59) mg/dL Urine Color (Yellow) Urine Appearance (Clear) Urine pH (5.0-8.0) Ur Specific [place] (1.005-1.030) Urine Protein (Negative) Urine Glucose (UA) (Negative) Urine Ketones (Negative) Urine Occult Blood (Negative) Urine Nitrite (Negative) Urine Bilirubin (Negative) Urine Urobilinogen (0.2-1.0) Ur Leukocyte Esterase (Negative) Urine RBC (0-5) /hpf Urine WBC (0-5) /hpf Ur Epithelial Cells (0-5) /hpf Urine Bacteria (FEW) /hpf Urine Mucus (FEW) /hpf MRSA (PCR) Result Diagrams: 09/14/17 05:40 09/14/17 05:40 Consult PN Assessment/Plan Procedures: Procedures DXA BONE DENSITY AXIAL (11/09/16) GLUCOSE BLOOD TEST (04/01/14) INCISE FINGER TENDON SHEATH (04/01/14) MR-STAPH DNA AMP PROBE (03/23/14) Problem List Initiated/Reviewed/Updated: Yes My Orders Last 24 Hours: My Active Orders 09/14/17 08:00 Fluoro Up To 1Hr [CR] Routine Plan: A: valgus impacted right femoral neck fracture P: At this time I did discuss with the patient that she has a stable fracture but that operative intervention is required to let her ambulate as soon as possible. I discussed with her the possibility of doing a percutaneous fixation of the femoral neck fracture versus a total hip arthroplasty. At this time the patient is still employed outside of the home and she has a significant tobacco history and still actively smokes. I discussed with her the ramifications of continued smoking and the possibility of the fracture not healing with pinning and also the bigger surgical risks and dislocation risks with total hip arthroplasty. After a lengthy discussion the patient prefers we try pinning first. I did discuss that if we do not have adequate bony fixation that we would then convert to a total hip arthroplasty. Risks, benefits, complications, and alternatives were discussed.
[2017-09-14] MEDS: Ondansetron 4 MG/2 ML SDV IVPUSH PRN (14:14)
[2017-09-14] MEDS: ceFAZolin 2 GM in Premix Bag 1 BAG IV SCH (15:45)
[2017-09-14] MEDS ORDERED: Scopolamine 1.5 MG Transdermal Patch TRDERM PRN (16:00)
[2017-09-14] MEDS ORDERED: Remove Patch **SCOPOLAMINE TRDERM SCH (17:00)
[2017-09-15] MEDS: ceFAZolin 2 GM in Premix Bag 1 BAG IV SCH ×2 (00:53→08:16)
[2017-09-15] MEDS: Famotidine 20 MG Tab PO SCH ×3 (06:18→18:42)
[2017-09-15] MEDS: Levothyroxine 125 MCG Tab PO SCH (06:18)
[2017-09-15] MEDS: Insulin Aspart 100 Units/ML 3 ML Pen SUBCUT SCH ×4 (06:22→22:33)
[2017-09-15] MEDS: Ondansetron 4 MG/2 ML SDV IVPUSH PRN (08:19)
[2017-09-15] MEDS: Acetaminophen/HYDROcodone 325-5 MG Tab PO PRN ×2 (08:19→17:34)
[2017-09-15] MEDS ORDERED: Aspirin 325 MG Tab.EC PO SCH (09:00)
[2017-09-15] MEDS: glipiZIDE 5 MG Tab.ER PO SCH (10:14)
[2017-09-15] MEDS: Rosuvastatin 10 MG Tab PO SCH (10:15)
[2017-09-15] MEDS: Enoxaparin 40 MG/0.4 ML Syringe SUBCUT SCH (10:15)
[2017-09-15] MEDS: Docusate Sodium 100 MG Cap PO SCH ×2 (10:15→21:08)
--- NOTE | 2017-09-15 10:35 | PCM48HPAN ---
Post Anesthesia Note - EVALUATION WITHIN 48HRS OF ANESTHETIC Vital Signs in Normal Range: Yes Patient Participated in Evaluation: Yes Respiratory Function Stable: Yes Airway Patent: Yes Cardiovascular Function Stable: Yes Hydration Status Stable: Yes Pain Control Satisfactory: Yes Nausea and Vomiting Control Satisfactory: Yes Mental Status Recovered: Yes
--- NOTE | 2017-09-15 10:36 | PCM.SN ---
- Free Text/Narrative Note: Called for IV start. 22 gauge IV inserted in her right forearm with 1 attempt per standard protocol. IV start kit utilized. Good blood return. Flushes with ease 10ml 0.9NS syringe.
[2017-09-15] MEDS ORDERED: Metoclopramide 10 MG/2 ML SDV IVPUSH SCH (11:00)
--- NOTE | 2017-09-15 11:37 | PCM.SURGPN ---
- General Info Date of Service: 09/15/17 POD#: 1 Functional Status: Reports: Pain Controlled, Tolerating Diet, Ambulating, Urinating, Incentive Spirometry - Review of Systems General: Reports: Other (The pt states her nausea has improved. The pt states her pain is controlled.) Musculoskeletal: Reports: Other (Nursing states the pt did well with therapy today.) - Patient Data Vitals - Most Recent: Last Vital Signs Temp 98.2 F 09/15/17 08:33 Pulse 76 09/15/17 08:33 Resp 18 09/15/17 08:33 BP 99/54 L 09/15/17 08:33 Pulse Ox 96 09/15/17 10:19 Weight - Most Recent: 190 lb 4.8 oz I&O - Last 24 Hours: Intake & Output 09/14/17 09/15/17 09/15/17 22:59 06:59 14:59 Intake Total 300 110 Output Total 100 850 Balance 200 -740 Lab Results Last 24 Hrs: Laboratory Results - last 24 hr 09/14/17 09/14/17 09/14/17 Range/Units 16:01 18:50 21:07 WBC (3.98-10.04) K/mm3 RBC (3.98-5.22) M/mm3 Hgb (11.2-15.7) gm/L Hct (34.1-44.9) % MCV (79.4-94.8) fl MCH (25.6-32.2) pg MCHC (32.2-35.5) g/dl RDW Std Deviation (36.4-46.3) fL Plt Count (182-369) K/mm3 MPV (9.4-12.3) fl Neut % (Auto) (34.0-71.1) % Lymph % (Auto) (19.3-51.7) % [place] % (Auto) (4.7-12.5) % Eos % (Auto) (0.7-5.8) Baso % (Auto) (0.1-1.2) % Neut # (Auto) (1.56-6.13) K/mm3 Lymph # (Auto) (1.18-3.74) K/mm3 [place] # (Auto) (0.24-0.36) K/mm3 Eos # (Auto) (0.04-0.36) K/mm3 Baso # (Auto) (0.01-0.08) K/mm3 Manual Slide Review Sodium (136-145) mEq/L Potassium (3.5-5.1) mEq/L Chloride (98-107) mEq/L Carbon Dioxide (21-32) mEq/L Anion Gap (5-15) BUN (7-18) mg/dL Creatinine (0.55-1.02) mg/dL Est Cr Clr Drug Dosing mL/min Estimated GFR (MDRD) (>60) mL/min BUN/Creatinine Ratio (14-18) Glucose (80-115) mg/dL POC Glucose 202 H 156 H (80-115) mg/dL Hemoglobin A1c (4.50-6.20) % Calcium (8.5-10.1) mg/dL Magnesium (1.8-2.4) mg/dl C-Reactive Protein (<1.0) mg/dL Urine Color Yellow (Yellow) Urine Appearance Cloudy H (Clear) Urine pH 6.0 (5.0-8.0) Ur Specific [place] > or = 1.030 (1.005-1.030) Urine Protein 2+ H (Negative) Urine Glucose (UA) Negative (Negative) Urine Ketones Negative (Negative) Urine Occult Blood 3+ H (Negative) Urine Nitrite Negative (Negative) Urine Bilirubin Negative (Negative) Urine Urobilinogen 0.2 (0.2-1.0) Ur Leukocyte Esterase Negative (Negative) Urine RBC >100 H (0-5) /hpf Urine WBC 5-10 H (0-5) /hpf Ur Epithelial Cells 5-10 H (0-5) /hpf Urine Bacteria Moderate H (FEW) /hpf Urine Mucus Not seen (FEW) /hpf 09/15/17 09/15/17 09/15/17 Range/Units 05:49 05:49 05:49 WBC 12.92 H (3.98-10.04) K/mm3 RBC 4.49 (3.98-5.22) M/mm3 Hgb 14.3 (11.2-15.7) gm/L Hct 42.8 (34.1-44.9) % MCV 95.3 H (79.4-94.8) fl MCH 31.8 (25.6-32.2) pg MCHC 33.4 (32.2-35.5) g/dl RDW Std Deviation 41.6 (36.4-46.3) fL Plt Count 177 L (182-369) K/mm3 MPV 11.9 (9.4-12.3) fl Neut % (Auto) 85.0 H (34.0-71.1) % Lymph % (Auto) 6.1 L (19.3-51.7) % [place] % (Auto) 7.4 (4.7-12.5) % Eos % (Auto) 1.0 (0.7-5.8) Baso % (Auto) 0.3 (0.1-1.2) % Neut # (Auto) 10.98 H (1.56-6.13) K/mm3 Lymph # (Auto) 0.79 L (1.18-3.74) K/mm3 [place] # (Auto) 0.95 H (0.24-0.36) K/mm3 Eos # (Auto) 0.13 (0.04-0.36) K/mm3 Baso # (Auto) 0.04 (0.01-0.08) K/mm3 Manual Slide Review Abnormal smear Sodium 138 (136-145) mEq/L Potassium 4.2 (3.5-5.1) mEq/L Chloride 105 (98-107) mEq/L Carbon Dioxide 30 (21-32) mEq/L Anion Gap 7.2 (5-15) BUN 17 (7-18) mg/dL Creatinine 0.5 L (0.55-1.02) mg/dL Est Cr Clr Drug Dosing 104.72 mL/min Estimated GFR (MDRD) > 60 (>60) mL/min BUN/Creatinine Ratio 34.0 H (14-18) Glucose 121 H (80-115) mg/dL POC Glucose (80-115) mg/dL Hemoglobin A1c 5.70 (4.50-6.20) % Calcium 9.1 (8.5-10.1) mg/dL Magnesium 2.1 (1.8-2.4) mg/dl C-Reactive Protein 5.5 H* (<1.0) mg/dL Urine Color (Yellow) Urine Appearance (Clear) Urine pH (5.0-8.0) Ur Specific [place] (1.005-1.030) Urine Protein (Negative) Urine Glucose (UA) (Negative) Urine Ketones (Negative) Urine Occult Blood (Negative) Urine Nitrite (Negative) Urine Bilirubin (Negative) Urine Urobilinogen (0.2-1.0) Ur Leukocyte Esterase (Negative) Urine RBC (0-5) /hpf Urine WBC (0-5) /hpf Ur Epithelial Cells (0-5) /hpf Urine Bacteria (FEW) /hpf Urine Mucus (FEW) /hpf 09/15/17 09/15/17 Range/Units 06:21 11:07 WBC (3.98-10.04) K/mm3 RBC (3.98-5.22) M/mm3 Hgb (11.2-15.7) gm/L Hct (34.1-44.9) % MCV (79.4-94.8) fl MCH (25.6-32.2) pg MCHC (32.2-35.5) g/dl RDW Std Deviation (36.4-46.3) fL Plt Count (182-369) K/mm3 MPV (9.4-12.3) fl Neut % (Auto) (34.0-71.1) % Lymph % (Auto) (19.3-51.7) % [place] % (Auto) (4.7-12.5) % Eos % (Auto) (0.7-5.8) Baso % (Auto) (0.1-1.2) % Neut # (Auto) (1.56-6.13) K/mm3 Lymph # (Auto) (1.18-3.74) K/mm3 [place] # (Auto) (0.24-0.36) K/mm3 Eos # (Auto) (0.04-0.36) K/mm3 Baso # (Auto) (0.01-0.08) K/mm3 Manual Slide Review Sodium (136-145) mEq/L Potassium (3.5-5.1) mEq/L Chloride (98-107) mEq/L Carbon Dioxide (21-32) mEq/L Anion Gap (5-15) BUN (7-18) mg/dL Creatinine (0.55-1.02) mg/dL Est Cr Clr Drug Dosing mL/min Estimated GFR (MDRD) (>60) mL/min BUN/Creatinine Ratio (14-18) Glucose (80-115) mg/dL POC Glucose 121 H 156 H (80-115) mg/dL Hemoglobin A1c (4.50-6.20) % Calcium (8.5-10.1) mg/dL Magnesium (1.8-2.4) mg/dl C-Reactive Protein (<1.0) mg/dL Urine Color (Yellow) Urine Appearance (Clear) Urine pH (5.0-8.0) Ur Specific [place] (1.005-1.030) Urine Protein (Negative) Urine Glucose (UA) (Negative) Urine Ketones (Negative) Urine Occult Blood (Negative) Urine Nitrite (Negative) Urine Bilirubin (Negative) Urine Urobilinogen (0.2-1.0) Ur Leukocyte Esterase (Negative) Urine RBC (0-5) /hpf Urine WBC (0-5) /hpf Ur Epithelial Cells (0-5) /hpf Urine Bacteria (FEW) /hpf Urine Mucus (FEW) /hpf Kip Results Last 24 Hrs: Microbiology 09/14/17 18:50 Urine Culture - Preliminary Urine, Blackwell Cath ([place]) NO GROWTH AFTER 1 DAY Med Orders - Current: Current Medications Acetaminophen (Tylenol) 650 mg PO Q6H PRN PRN Reason: Pain/Fever Hydrocodone Bitart/Acetaminophen ([place] 325-5 Mg) 1 - 2 tab PO Q4H PRN PRN Reason: Pain Last Admin: 09/15/17 08:19 Dose: 1 tab Bisacodyl (Dulcolax) 5 mg PO DAILY PRN PRN Reason: Constipation Cyclobenzaprine HCl (Flexeril) 10 mg PO TID PRN PRN Reason: Spasms Dextrose/Water (Dextrose 50% In Water) 50 ml IVPUSH ASDIRECTED PRN PRN Reason: Hypoglycemia Docusate Sodium (Colace) 100 mg PO BID [facility] Last Admin: 09/15/17 10:15 Dose: 100 mg Enoxaparin Sodium (Lovenox) 40 mg SUBCUT DAILY [facility] Last Admin: 09/15/17 10:15 Dose: 40 mg Famotidine (Pepcid) 20 mg PO Q12H [facility] Last Admin: 09/15/17 06:51 Dose: Not Given Glipizide (Glucotrol Xl) 10 mg PO DAILY [facility] Last Admin: 09/15/17 10:14 Dose: Not Given Hydromorphone HCl (Dilaudid) 0.5 mg IVPUSH Q4H PRN PRN Reason: Pain (moderate 4-6) Insulin Aspart (Novolog) 0 unit SUBCUT QIDACANDBED [facility]; Protocol Last Admin: 09/15/17 11:10 Dose: Not Given Ketorolac Tromethamine (Toradol) 30 mg IVPUSH Q6H [facility] Levothyroxine Sodium (Levothyroxine) 125 mcg PO ACBRK [facility] Last Admin: 09/15/17 06:18 Dose: 125 mcg Magnesium Hydroxide (Milk Of Magnesia) 30 ml PO BID PRN PRN Reason: Constipation Metoclopramide HCl (Reglan) 10 mg IVPUSH Q6H [facility] Miscellaneous Information (Remove Patch) 1 ea TRDERM Q72H [facility] Last Admin: 09/14/17 18:35 Dose: Not Given Naloxone HCl (Narcan) 0.1 mg IVPUSH Q5M PRN PRN Reason: Oversedation Ondansetron HCl (Zofran) 4 mg IVPUSH Q8H PRN PRN Reason: Nausea/Vomiting Last Admin: 09/15/17 08:19 Dose: 4 mg Rosuvastatin Calcium (Crestor) 10 mg PO DAILY [facility] Last Admin: 09/15/17 10:15 Dose: 10 mg Scopolamine (Transderm-Scop) 1.5 mg TRDERM Q72H PRN PRN Reason: Nausea/Vomiting Last Admin: 09/14/17 17:28 Dose: 1.5 mg Senna (Senna) 8.6 mg PO BID PRN PRN Reason: Constipation Sodium Chloride (Saline Flush) 10 ml FLUSH ASDIRECTED PRN PRN Reason: Keep Vein Open Last Admin: 09/13/17 16:39 Dose: 10 ml Discontinued Medications Albuterol (Proventil Neb Soln) 2.5 mg NEB ONETIME ONE Stop: 09/14/17 08:29 Last Admin: 09/14/17 17:44 Dose: Not Given Aspirin (Ecotrin) 325 mg PO BID [facility] Bupivacaine HCl (Marcaine 0.5%) Confirm Administered Dose 30 ml .ROUTE .STK-MED ONE Stop: 09/14/17 06:25 Bupivacaine HCl (Marcaine 0.25%) Confirm Administered Dose 30 ml .ROUTE .STK- MED ONE Stop: 09/14/17 07:20 Last Admin: 09/14/17 08:55 Dose: 8 ml Bupivacaine HCl (Sensorcaine-Mpf 0.75%) Confirm Administered Dose 30 ml .ROUTE .STK-MED ONE Stop: 09/14/17 07:27 Dexamethasone (Dexamethasone) Confirm Administered Dose 8 mg .ROUTE .STK-MED ONE Stop: 09/14/17 08:11 Fentanyl (Sublimaze) Confirm Administered Dose 100 mcg .ROUTE .STK-MED ONE Stop: 09/14/17 07:26 Fentanyl (Sublimaze) 50 mcg IVPUSH Q5M PRN PRN Reason: Pain Hydromorphone HCl (Dilaudid) 0.5 mg IVPUSH ONETIME ONE Stop: 09/13/17 16:26 Last Admin: 09/13/17 16:32 Dose: 0.5 mg Hydromorphone HCl (Dilaudid) 0.5 mg IVPUSH ONETIME ONE Stop: 09/13/17 19:12 Last Admin: 09/13/17 20:37 Dose: 0.5 mg Hydromorphone HCl (Dilaudid) 0.5 mg IV ASDIRECTED PRN PRN Reason: Severe Pain Hydromorphone HCl (Dilaudid) 0.5 mg IVPUSH ASDIRECTED PRN PRN Reason: Severe Pain Sodium Chloride (Normal Saline) 1,000 mls @ 150 mls/hr IV ASDIRECTED [facility] Last Admin: 09/13/17 16:39 Dose: 150 mls/hr Sodium Chloride (Sodium Chloride 0.45%) 1,000 mls @ 125 mls/hr IV ASDIRECTED [facility] Last Admin: 09/13/17 20:38 Dose: 125 mls/hr Cefazolin Sodium/Dextrose 2 gm (/ Premix) 50 mls @ 100 mls/hr IV Q8H [facility] Last Admin: 09/14/17 20:15 Dose: Not Given Lidocaine HCl (Xylocaine-Mpf 1%) Confirm Administered Dose 4 mls @ as directed .ROUTE .STK-MED ONE Stop: 09/14/17 07:27 Lactated Ringer's (Ringers, Lactated) Confirm Administered Dose 2,000 mls @ as directed .ROUTE .STK-MED ONE Stop: 09/14/17 08:11 Cefazolin Sodium/Dextrose 2 gm (/ Premix) 50 mls @ 100 mls/hr IV Q8H [facility] Stop: 09/15/17 08:29 Last Admin: 09/15/17 08:16 Dose: 100 mls/hr Ketamine HCl (Ketalar) Confirm Administered Dose 500 mg .ROUTE .STK-MED ONE Stop: 09/14/17 07:27 Ketorolac Tromethamine (Toradol) 15 mg IVPUSH Q6H [facility] Last Admin: 09/14/17 20:15 Dose: Not Given Meperidine HCl (Demerol) 12.5 mg IVPUSH ONETIME PRN PRN Reason: Shivering Metoclopramide HCl (Reglan) 10 mg IVPUSH Q6H [facility] Midazolam HCl (Versed 1 Mg/Ml) Confirm Administered Dose 2 mg .ROUTE .STK-MED ONE Stop: 09/14/17 07:27 Morphine Sulfate (Duramorph Pf) Confirm Administered Dose 1 mg .ROUTE .STK-MED ONE Stop: 09/14/17 07:35 Ondansetron HCl (Zofran) 4 mg IVPUSH ONETIME ONE Stop: 09/13/17 16:30 Last Admin: 09/13/17 16:38 Dose: 4 mg Ondansetron HCl (Zofran) Confirm Administered Dose 4 mg .ROUTE .STK-MED ONE Stop: 09/14/17 08:21 Ondansetron HCl (Zofran) 4 mg IVPUSH ONETIME PRN PRN Reason: Nausea/Vomiting Propofol (Diprivan 20 Ml) Confirm Administered Dose 600 mg .ROUTE .STK-MED ONE Stop: 09/14/17 07:26 - Exam Wound/Incisions: Dressing Dry and Intact General: Alert, Cooperative, No Acute Distress Lungs: Normal Respiratory Effort Extremities: Other (Right thigh soft. NVS intact for LE. Dion's negative for RLE.) - Problem List Review Problem List Initiated/Reviewed/Updated: Yes - My Orders Last 24 Hours: Active Orders 24 hr Category Date Time Status Remove Blackwell Catheter [Urinary Catheter Removal] [RC] Care 09/14/17 11:01 Active Per Unit Routine NPO Now [Nothing per Oral Now Diet] [DIET] Diet 09/14/17 Dinner Active BMP [BASIC METABOLIC PANEL,BMP] [CHEM] DAILY Lab 09/16/17 05:00 Ordered BMP [BASIC METABOLIC PANEL,BMP] [CHEM] DAILY Lab 09/17/17 05:00 Ordered CBC WITH AUTO DIFF [HEME] DAILY Lab 09/16/17 05:00 Ordered CBC WITH AUTO DIFF [HEME] DAILY Lab 09/17/17 05:00 Ordered CRP [C-REACTIVE PROTEIN] [CHEM] DAILY Lab 09/16/17 05:00 Ordered CRP [C-REACTIVE PROTEIN] [CHEM] DAILY Lab 09/17/17 05:00 Ordered CULTURE URINE [RM] Routine Lab 09/14/17 18:50 Results MAGNESIUM [CHEM] DAILY Lab 09/16/17 05:00 Ordered MAGNESIUM [CHEM] DAILY Lab 09/17/17 05:00 Ordered Enoxaparin [Lovenox] Med 09/15/17 09:00 Active 40 mg SUBCUT DAILY Ketorolac [Toradol] Med 09/15/17 12:00 Ordered 30 mg IVPUSH Q6H Metoclopramide [Reglan] Med 09/15/17 13:00 Active 10 mg IVPUSH Q6H Remove Patch Med 09/14/17 17:00 Active 1 ea TRDERM Q72H Scopolamine [Transderm-Scop] Med 09/14/17 16:00 Active 1.5 mg TRDERM Q72H PRN Medication Orders Acetaminophen (Tylenol) 650 mg PO Q6H PRN PRN Reason: Pain/Fever Hydrocodone Bitart/Acetaminophen ([place] 325-5 Mg) 1 - 2 tab PO Q4H PRN PRN Reason: Pain Last Admin: 09/15/17 08:19 Dose: 1 tab Bisacodyl (Dulcolax) 5 mg PO DAILY PRN PRN Reason: Constipation Cyclobenzaprine HCl (Flexeril) 10 mg PO TID PRN PRN Reason: Spasms Dextrose/Water (Dextrose 50% In Water) 50 ml IVPUSH ASDIRECTED PRN PRN Reason: Hypoglycemia Docusate Sodium (Colace) 100 mg PO BID [facility] Last Admin: 09/15/17 10:15 Dose: 100 mg Admin: 09/14/17 20:59 Dose: 100 mg Admin: 09/14/17 11:22 Dose: 100 mg Enoxaparin Sodium (Lovenox) 40 mg SUBCUT DAILY [facility] Last Admin: 09/15/17 10:15 Dose: 40 mg Famotidine (Pepcid) 20 mg PO Q12H [facility] Last Admin: 09/15/17 06:51 Dose: Admin: 09/15/17 06:18 Dose: 20 mg Admin: 09/14/17 18:35 Dose: 20 mg Admin: 09/14/17 11:21 Dose: 20 mg Glipizide (Glucotrol Xl) 10 mg PO DAILY [facility] Last Admin: 09/15/17 10:14 Dose: Admin: 09/14/17 11:22 Dose: 10 mg Hydromorphone HCl (Dilaudid) 0.5 mg IVPUSH Q4H PRN PRN Reason: Pain (moderate 4-6) Insulin Aspart (Novolog) 0 unit SUBCUT QIDACANDBED [facility]; Protocol Last Admin: 09/15/17 11:10 Dose: Not Given Admin: 09/15/17 06:22 Dose: Not Given Admin: 09/14/17 23:26 Dose: Admin: 09/14/17 16:02 Dose: 2 unit Admin: 09/14/17 11:22 Dose: 1 unit Admin: 09/14/17 06:20 Dose: Not Given Admin: 09/13/17 21:25 Dose: Not Given Ketorolac Tromethamine (Toradol) 30 mg IVPUSH Q6H [facility] Levothyroxine Sodium (Levothyroxine) 125 mcg PO ACBRK [facility] Last Admin: 09/15/17 06:18 Dose: 125 mcg Admin: 09/14/17 05:15 Dose: Magnesium Hydroxide (Milk Of Magnesia) 30 ml PO BID PRN PRN Reason: Constipation Metoclopramide HCl (Reglan) 10 mg IVPUSH Q6H [facility] Miscellaneous Information (Remove Patch) 1 ea TRDERM Q72H [facility] Last Admin: 09/14/17 18:35 Dose: Not Given Naloxone HCl (Narcan) 0.1 mg IVPUSH Q5M PRN PRN Reason: Oversedation Ondansetron HCl (Zofran) 4 mg IVPUSH Q8H PRN PRN Reason: Nausea/Vomiting Last Admin: 09/15/17 08:19 Dose: 4 mg Admin: 09/14/17 14:14 Dose: 4 mg Rosuvastatin Calcium (Crestor) 10 mg PO DAILY [facility] Last Admin: 09/15/17 10:15 Dose: 10 mg Admin: 09/14/17 11:21 Dose: 10 mg Scopolamine (Transderm-Scop) 1.5 mg TRDERM Q72H PRN PRN Reason: Nausea/Vomiting Last Admin: 09/14/17 17:28 Dose: 1.5 mg Senna (Senna) 8.6 mg PO BID PRN PRN Reason: Constipation Sodium Chloride (Saline Flush) 10 ml FLUSH ASDIRECTED PRN PRN Reason: Keep Vein Open Last Admin: 09/13/17 16:39 Dose: 10 ml - Assessment Assessment (Free Text/Narrative):: POD#1 - percutaneous screw fixation of right femoral neck fracture - Plan Plan (Free Text/Narrative):: 1. SCDs, TEDs, Lovenox for VTE prophylaxis. 2. Continue with P.T. and O.T. 50% weight bearing. 3. Medical management per Hospitalist service. The pt states her nausea has improved. 4. Hgb 14.3 today. The pt's case was discussed with Dr. Vieira.
[2017-09-15] MEDS ORDERED: Ketorolac 30 MG/ML SDV IVPUSH SCH (12:00)
--- NOTE | 2017-09-15 12:53 | CR ---
Right hip: Multiple fluoroscopic spot views were obtained of the right hip utilizing C-arm device. Comparison: No prior hip exam. Study shows placement of 3 cannulated screws across the femoral neck. Fluoroscopy time given as 117 seconds. Bony structures are anatomically aligned. Impression: 1. Procedural study showing 3 cannulated screws which have been placed across the right femoral neck. Diagnostic code #2
--- NOTE | 2017-09-15 12:53 | CR ---
Pelvis and right hip: AP view of the pelvis was obtained as well as lateral view of the right hip. Comparison: Prior operative study performed earlier on the same day (8:06 AM), no earlier study. Three cannulated screws are noted across the femoral neck. Soft tissue air is noted from the surgical procedure. Scoliosis and degenerative change partially seen within the visualized lower lumbar spine. Impression: 1. Three cannulated screws across the right hip and other incidental findings. Diagnostic code #2
[2017-09-15] MEDS: Metoclopramide 10 MG/2 ML SDV IVPUSH SCH ×2 (13:24→18:22)
--- NOTE | 2017-09-15 18:33 | PCM.PN ---
- General Info Date of Service: 09/15/17 Subjective Update: Blackwell has been removed, increase activity as tolerated; DC NPO. Advance diet as tolerated. Functional Status: Reports: Pain Controlled, Urinating - Review of Systems General: Reports: No Symptoms HEENT: Reports: No Symptoms Pulmonary: Reports: No Symptoms Cardiovascular: Reports: No Symptoms Gastrointestinal: Reports: No Symptoms Genitourinary: Reports: No Symptoms Musculoskeletal: Reports: No Symptoms Skin: Reports: No Symptoms Neurological: Reports: No Symptoms Psychiatric: Reports: No Symptoms - Patient Data Vitals - Most Recent: Last Vital Signs Temp 36.7 C 09/15/17 16:57 Pulse 74 09/15/17 17:39 Resp 18 09/15/17 16:57 BP 106/75 09/15/17 16:57 Pulse Ox 93 L 09/15/17 17:39 Weight - Most Recent: 86.228 kg I&O - Last 24 Hours: Intake & Output 09/15/17 09/15/17 09/15/17 06:59 14:59 22:59 Intake Total 110 50 Output Total 850 220 Balance -740 -170 Lab Results Last 24 Hours: Laboratory Results - last 24 hr 09/14/17 09/14/17 09/15/17 Range/Units 18:50 21:07 05:49 WBC 12.92 H (3.98-10.04) K/mm3 RBC 4.49 (3.98-5.22) M/mm3 Hgb 14.3 (11.2-15.7) gm/L Hct 42.8 (34.1-44.9) % MCV 95.3 H (79.4-94.8) fl MCH 31.8 (25.6-32.2) pg MCHC 33.4 (32.2-35.5) g/dl RDW Std Deviation 41.6 (36.4-46.3) fL Plt Count 177 L (182-369) K/mm3 MPV 11.9 (9.4-12.3) fl Neut % (Auto) 85.0 H (34.0-71.1) % Lymph % (Auto) 6.1 L (19.3-51.7) % [place] % (Auto) 7.4 (4.7-12.5) % Eos % (Auto) 1.0 (0.7-5.8) Baso % (Auto) 0.3 (0.1-1.2) % Neut # (Auto) 10.98 H (1.56-6.13) K/mm3 Lymph # (Auto) 0.79 L (1.18-3.74) K/mm3 [place] # (Auto) 0.95 H (0.24-0.36) K/mm3 Eos # (Auto) 0.13 (0.04-0.36) K/mm3 Baso # (Auto) 0.04 (0.01-0.08) K/mm3 Manual Slide Review Abnormal smear Sodium (136-145) mEq/L Potassium (3.5-5.1) mEq/L Chloride (98-107) mEq/L Carbon Dioxide (21-32) mEq/L Anion Gap (5-15) BUN (7-18) mg/dL Creatinine (0.55-1.02) mg/dL Est Cr Clr Drug Dosing mL/min Estimated GFR (MDRD) (>60) mL/min BUN/Creatinine Ratio (14-18) Glucose (80-115) mg/dL POC Glucose 156 H (80-115) mg/dL Hemoglobin A1c (4.50-6.20) % Calcium (8.5-10.1) mg/dL Magnesium (1.8-2.4) mg/dl C-Reactive Protein (<1.0) mg/dL Urine Color Yellow (Yellow) Urine Appearance Cloudy H (Clear) Urine pH 6.0 (5.0-8.0) Ur Specific [place] > or = 1.030 (1.005-1.030) Urine Protein 2+ H (Negative) Urine Glucose (UA) Negative (Negative) Urine Ketones Negative (Negative) Urine Occult Blood 3+ H (Negative) Urine Nitrite Negative (Negative) Urine Bilirubin Negative (Negative) Urine Urobilinogen 0.2 (0.2-1.0) Ur Leukocyte Esterase Negative (Negative) Urine RBC >100 H (0-5) /hpf Urine WBC 5-10 H (0-5) /hpf Ur Epithelial Cells 5-10 H (0-5) /hpf Urine Bacteria Moderate H (FEW) /hpf Urine Mucus Not seen (FEW) /hpf 09/15/17 09/15/17 09/15/17 Range/Units 05:49 05:49 06:21 WBC (3.98-10.04) K/mm3 RBC (3.98-5.22) M/mm3 Hgb (11.2-15.7) gm/L Hct (34.1-44.9) % MCV (79.4-94.8) fl MCH (25.6-32.2) pg MCHC (32.2-35.5) g/dl RDW Std Deviation (36.4-46.3) fL Plt Count (182-369) K/mm3 MPV (9.4-12.3) fl Neut % (Auto) (34.0-71.1) % Lymph % (Auto) (19.3-51.7) % [place] % (Auto) (4.7-12.5) % Eos % (Auto) (0.7-5.8) Baso % (Auto) (0.1-1.2) % Neut # (Auto) (1.56-6.13) K/mm3 Lymph # (Auto) (1.18-3.74) K/mm3 [place] # (Auto) (0.24-0.36) K/mm3 Eos # (Auto) (0.04-0.36) K/mm3 Baso # (Auto) (0.01-0.08) K/mm3 Manual Slide Review Sodium 138 (136-145) mEq/L Potassium 4.2 (3.5-5.1) mEq/L Chloride 105 (98-107) mEq/L Carbon Dioxide 30 (21-32) mEq/L Anion Gap 7.2 (5-15) BUN 17 (7-18) mg/dL Creatinine 0.5 L (0.55-1.02) mg/dL Est Cr Clr Drug Dosing 104.72 mL/min Estimated GFR (MDRD) > 60 (>60) mL/min BUN/Creatinine Ratio 34.0 H (14-18) Glucose 121 H (80-115) mg/dL POC Glucose 121 H (80-115) mg/dL Hemoglobin A1c 5.70 (4.50-6.20) % Calcium 9.1 (8.5-10.1) mg/dL Magnesium 2.1 (1.8-2.4) mg/dl C-Reactive Protein 5.5 H* (<1.0) mg/dL Urine Color (Yellow) Urine Appearance (Clear) Urine pH (5.0-8.0) Ur Specific [place] (1.005-1.030) Urine Protein (Negative) Urine Glucose (UA) (Negative) Urine Ketones (Negative) Urine Occult Blood (Negative) Urine Nitrite (Negative) Urine Bilirubin (Negative) Urine Urobilinogen (0.2-1.0) Ur Leukocyte Esterase (Negative) Urine RBC (0-5) /hpf Urine WBC (0-5) /hpf Ur Epithelial Cells (0-5) /hpf Urine Bacteria (FEW) /hpf Urine Mucus (FEW) /hpf 09/15/17 09/15/17 Range/Units 11:07 17:10 WBC (3.98-10.04) K/mm3 RBC (3.98-5.22) M/mm3 Hgb (11.2-15.7) gm/L Hct (34.1-44.9) % MCV (79.4-94.8) fl MCH (25.6-32.2) pg MCHC (32.2-35.5) g/dl RDW Std Deviation (36.4-46.3) fL Plt Count (182-369) K/mm3 MPV (9.4-12.3) fl Neut % (Auto) (34.0-71.1) % Lymph % (Auto) (19.3-51.7) % [place] % (Auto) (4.7-12.5) % Eos % (Auto) (0.7-5.8) Baso % (Auto) (0.1-1.2) % Neut # (Auto) (1.56-6.13) K/mm3 Lymph # (Auto) (1.18-3.74) K/mm3 [place] # (Auto) (0.24-0.36) K/mm3 Eos # (Auto) (0.04-0.36) K/mm3 Baso # (Auto) (0.01-0.08) K/mm3 Manual Slide Review Sodium (136-145) mEq/L Potassium (3.5-5.1) mEq/L Chloride (98-107) mEq/L Carbon Dioxide (21-32) mEq/L Anion Gap (5-15) BUN (7-18) mg/dL Creatinine (0.55-1.02) mg/dL Est Cr Clr Drug Dosing mL/min Estimated GFR (MDRD) (>60) mL/min BUN/Creatinine Ratio (14-18) Glucose (80-115) mg/dL POC Glucose 156 H 108 (80-115) mg/dL Hemoglobin A1c (4.50-6.20) % Calcium (8.5-10.1) mg/dL Magnesium (1.8-2.4) mg/dl C-Reactive Protein (<1.0) mg/dL Urine Color (Yellow) Urine Appearance (Clear) Urine pH (5.0-8.0) Ur Specific [place] (1.005-1.030) Urine Protein (Negative) Urine Glucose (UA) (Negative) Urine Ketones (Negative) Urine Occult Blood (Negative) Urine Nitrite (Negative) Urine Bilirubin (Negative) Urine Urobilinogen (0.2-1.0) Ur Leukocyte Esterase (Negative) Urine RBC (0-5) /hpf Urine WBC (0-5) /hpf Ur Epithelial Cells (0-5) /hpf Urine Bacteria (FEW) /hpf Urine Mucus (FEW) /hpf Kip Results Last 24 Hours: Microbiology 09/14/17 18:50 Urine Culture - Preliminary Urine, Black[place] Cath ([place]) NO GROWTH AFTER 1 DAY Med Orders - Current: Current Medications Acetaminophen (Tylenol) 650 mg PO Q6H PRN PRN Reason: Pain/Fever Hydrocodone Bitart/Acetaminophen ([place] 325-5 Mg) 1 - 2 tab PO Q4H PRN PRN Reason: Pain Last Admin: 09/15/17 17:34 Dose: 1 tab Bisacodyl (Dulcolax) 5 mg PO DAILY PRN PRN Reason: Constipation Cyclobenzaprine HCl (Flexeril) 10 mg PO TID PRN PRN Reason: Spasms Dextrose/Water (Dextrose 50% In Water) 50 ml IVPUSH ASDIRECTED PRN PRN Reason: Hypoglycemia Docusate Sodium (Colace) 100 mg PO BID [facility] Last Admin: 09/15/17 10:15 Dose: 100 mg Enoxaparin Sodium (Lovenox) 40 mg SUBCUT DAILY [facility] Last Admin: 09/15/17 10:15 Dose: 40 mg Famotidine (Pepcid) 20 mg PO Q12H [facility] Last Admin: 09/15/17 06:51 Dose: Not Given Glipizide (Glucotrol Xl) 10 mg PO DAILY [facility] Last Admin: 09/15/17 10:14 Dose: Not Given Hydromorphone HCl (Dilaudid) 0.5 mg IVPUSH Q4H PRN PRN Reason: Pain (moderate 4-6) Insulin Aspart (Novolog) 0 unit SUBCUT QIDACANDBED [facility]; Protocol Last Admin: 09/15/17 17:19 Dose: Not Given Ketorolac Tromethamine (Toradol) 30 mg IVPUSH Q8H [facility] Stop: 09/16/17 12:01 Levothyroxine Sodium (Levothyroxine) 125 mcg PO ACBRK [facility] Last Admin: 09/15/17 06:18 Dose: 125 mcg Magnesium Hydroxide (Milk Of Magnesia) 30 ml PO BID PRN PRN Reason: Constipation Metoclopramide HCl (Reglan) 10 mg IVPUSH Q6H [facility] Last Admin: 09/15/17 13:24 Dose: 10 mg Miscellaneous Information (Remove Patch) 1 ea TRDERM Q72H [facility] Last Admin: 09/14/17 18:35 Dose: Not Given Naloxone HCl (Narcan) 0.1 mg IVPUSH Q5M PRN PRN Reason: Oversedation Ondansetron HCl (Zofran) 4 mg IVPUSH Q8H PRN PRN Reason: Nausea/Vomiting Last Admin: 09/15/17 08:19 Dose: 4 mg Rosuvastatin Calcium (Crestor) 10 mg PO DAILY [facility] Last Admin: 09/15/17 10:15 Dose: 10 mg Scopolamine (Transderm-Scop) 1.5 mg TRDERM Q72H PRN PRN Reason: Nausea/Vomiting Last Admin: 09/14/17 17:28 Dose: 1.5 mg Senna (Senna) 8.6 mg PO BID PRN PRN Reason: Constipation Sodium Chloride (Saline Flush) 10 ml FLUSH ASDIRECTED PRN PRN Reason: Keep Vein Open Last Admin: 09/13/17 16:39 Dose: 10 ml Discontinued Medications Albuterol (Proventil Neb Soln) 2.5 mg NEB ONETIME ONE Stop: 09/14/17 08:29 Last Admin: 09/14/17 17:44 Dose: Not Given Aspirin (Ecotrin) 325 mg PO BID [facility] Bupivacaine HCl (Marcaine 0.5%) Confirm Administered Dose 30 ml .ROUTE .STK-MED ONE Stop: 09/14/17 06:25 Bupivacaine HCl (Marcaine 0.25%) Confirm Administered Dose 30 ml .ROUTE .STK- MED ONE Stop: 09/14/17 07:20 Last Admin: 09/14/17 08:55 Dose: 8 ml Bupivacaine HCl (Sensorcaine-Mpf 0.75%) Confirm Administered Dose 30 ml .ROUTE .STK-MED ONE Stop: 09/14/17 07:27 Dexamethasone (Dexamethasone) Confirm Administered Dose 8 mg .ROUTE .STK-MED ONE Stop: 09/14/17 08:11 Fentanyl (Sublimaze) Confirm Administered Dose 100 mcg .ROUTE .[facility]-MED ONE Stop: 09/14/17 07:26 Fentanyl (Sublimaze) 50 mcg IVPUSH Q5M PRN PRN Reason: Pain Hydromorphone HCl (Dilaudid) 0.5 mg IVPUSH ONETIME ONE Stop: 09/13/17 16:26 Last Admin: 09/13/17 16:32 Dose: 0.5 mg Hydromorphone HCl (Dilaudid) 0.5 mg IVPUSH ONETIME ONE Stop: 09/13/17 19:12 Last Admin: 09/13/17 20:37 Dose: 0.5 mg Hydromorphone HCl (Dilaudid) 0.5 mg IV ASDIRECTED PRN PRN Reason: Severe Pain Hydromorphone HCl (Dilaudid) 0.5 mg IVPUSH ASDIRECTED PRN PRN Reason: Severe Pain Sodium Chloride (Normal Saline) 1,000 mls @ 150 mls/hr IV ASDIRECTED [facility] Last Admin: 09/13/17 16:39 Dose: 150 mls/hr Sodium Chloride (Sodium Chloride 0.45%) 1,000 mls @ 125 mls/hr IV ASDIRECTED [facility] Last Admin: 09/13/17 20:38 Dose: 125 mls/hr Cefazolin Sodium/Dextrose 2 gm (/ Premix) 50 mls @ 100 mls/hr IV Q8H [facility] Last Admin: 09/14/17 20:15 Dose: Not Given Lidocaine HCl (Xylocaine-Mpf 1%) Confirm Administered Dose 4 mls @ as directed .ROUTE .STK-MED ONE Stop: 09/14/17 07:27 Lactated Ringer's (Ringers, Lactated) Confirm Administered Dose 2,000 mls @ as directed .ROUTE .STK-MED ONE Stop: 09/14/17 08:11 Cefazolin Sodium/Dextrose 2 gm (/ Premix) 50 mls @ 100 mls/hr IV Q8H [facility] Stop: 09/15/17 08:29 Last Admin: 09/15/17 08:16 Dose: 100 mls/hr Ketamine HCl (Ketalar) Confirm Administered Dose 500 mg .ROUTE .STK-MED ONE Stop: 09/14/17 07:27 Ketorolac Tromethamine (Toradol) 15 mg IVPUSH Q6H [facility] Last Admin: 09/14/17 20:15 Dose: Not Given Ketorolac Tromethamine (Toradol) 30 mg IVPUSH Q6H [facility] Stop: 09/16/17 06:01 Last Admin: 09/15/17 12:17 Dose: 30 mg Meperidine HCl (Demerol) 12.5 mg IVPUSH ONETIME PRN PRN Reason: Shivering Metoclopramide HCl (Reglan) 10 mg IVPUSH Q6H [facility] Midazolam HCl (Versed 1 Mg/Ml) Confirm Administered Dose 2 mg .ROUTE .STK-MED ONE Stop: 09/14/17 07:27 Morphine Sulfate (Duramorph Pf) Confirm Administered Dose 1 mg .ROUTE .STK-MED ONE Stop: 09/14/17 07:35 Ondansetron HCl (Zofran) 4 mg IVPUSH ONETIME ONE Stop: 09/13/17 16:30 Last Admin: 09/13/17 16:38 Dose: 4 mg Ondansetron HCl (Zofran) Confirm Administered Dose 4 mg .ROUTE .STK-MED ONE Stop: 09/14/17 08:21 Ondansetron HCl (Zofran) 4 mg IVPUSH ONETIME PRN PRN Reason: Nausea/Vomiting Propofol (Diprivan 20 Ml) Confirm Administered Dose 600 mg .ROUTE .STK-MED ONE Stop: 09/14/17 07:26 - Exam Quality Assessment: DVT Prophylaxis General: Alert, Oriented, Cooperative, No Acute Distress HEENT: Pupils Equal, Pupils Reactive, EOMI Neck: Trachea Midline, No JVD Lungs: Normal Respiratory Effort Cardiovascular: Regular Rate, Regular Rhythm GI/Abdominal Exam: Normal Bowel Sounds, Soft, Non-Tender, No Organomegaly, No Distention (Female) Exam: Deferred Back Exam: Normal Inspection Extremities: Normal Inspection, Normal Capillary Refill Skin: Warm Wound/Incisions: Dressing Dry and Intact Neurological: No New Focal Deficit Psy/Mental Status: Alert, Normal Affect, Normal Mood - Problem List Review Problem List Initiated/Reviewed/Updated: Yes - My Orders Last 24 Hours: My Active Orders 09/14/17 18:50 CULTURE URINE [RM] Routine 09/15/17 13:00 Metoclopramide [Reglan] 10 mg IVPUSH Q6H 09/15/17 20:00 Ketorolac [Toradol] 30 mg IVPUSH Q8H 09/15/17 Dinner Full Liquid Diet [DIET] Heart Healthy Diet [DIET] 09/16/17 05:00 BMP [BASIC METABOLIC PANEL,BMP] [CHEM] DAILY CBC WITH AUTO DIFF [HEME] DAILY CRP [C-REACTIVE PROTEIN] [CHEM] DAILY MAGNESIUM [CHEM] DAILY 09/16/17 Breakfast ADA Diabetic [[employer] Diet] [DIET] 09/17/17 05:00 BMP [BASIC METABOLIC PANEL,BMP] [CHEM] DAILY CBC WITH AUTO DIFF [HEME] DAILY CRP [C-REACTIVE PROTEIN] [CHEM] DAILY MAGNESIUM [CHEM] DAILY - Plan Plan:: Impression: POD 1 percut fixation of femur neck fracture S/P fall with subsequent closed right hip fracture; POST OP NAUSEA, DIET CHANGED TO NPO-->advance as tolerated No outside food. COPD with active tobacco use; no interest in quitting; declines nicotine replacement HTN DM type 2 HLD on a statin Plan: IVF Hold Metformin Home meds Pain meds; Toradol as tolerated DC 09/16/17. Pre op labs; scheduled as per Ortho NPO after MN except meds Check HgB, DM ed and teaching Dietary consultation Nicotine replacement and tobacco cessation education Consult PT/OT/SW post op; expected hosp stay 96 hours DVT/GI prophylaxis
[2017-09-15] MEDS: Ketorolac 30 MG/ML SDV IVPUSH SCH (21:09)
[2017-09-16] MEDS: Metoclopramide 10 MG/2 ML SDV IVPUSH SCH ×4 (00:22→18:34)
[2017-09-16] MEDS: Ketorolac 30 MG/ML SDV IVPUSH SCH ×2 (04:26→12:23)
[2017-09-16] MEDS: Levothyroxine 125 MCG Tab PO SCH (06:36)
[2017-09-16] MEDS: Insulin Aspart 100 Units/ML 3 ML Pen SUBCUT SCH ×4 (06:36→22:00)
[2017-09-16] MEDS: Famotidine 20 MG Tab PO SCH ×2 (06:36→18:33)
[2017-09-16] MEDS: Sennosides 8.6 MG Tab PO PRN ×2 (06:36→18:34)
--- NOTE | 2017-09-16 07:10 | PCM.SURGPN ---
- General Info Date of Service: 09/16/17 POD#: 2 Functional Status: Reports: Pain Controlled, Ambulating, Urinating, Other (The pt states her nausea is improved. She reports she had "liquid diet" yesterday.) - Review of Systems General: Denies: Fever, Chills Musculoskeletal: Reports: Other (The pt states her pain is controlled.) - Patient Data Vitals - Most Recent: Last Vital Signs Temp 98.1 F 09/16/17 04:25 Pulse 84 09/16/17 04:25 Resp 20 09/16/17 04:25 BP 118/69 09/16/17 04:25 Pulse Ox 91 L 09/16/17 04:25 Weight - Most Recent: 189 lb I&O - Last 24 Hours: Intake & Output 09/15/17 09/16/17 09/16/17 22:59 06:59 14:59 Intake Total 490 550 Output Total 220 Balance 270 550 Lab Results Last 24 Hrs: Laboratory Results - last 24 hr 09/15/17 09/15/17 09/15/17 Range/Units 05:49 11:07 17:10 WBC (3.98-10.04) K/mm3 RBC (3.98-5.22) M/mm3 Hgb (11.2-15.7) gm/L Hct (34.1-44.9) % MCV (79.4-94.8) fl MCH (25.6-32.2) pg MCHC (32.2-35.5) g/dl RDW Std Deviation (36.4-46.3) fL Plt Count (182-369) K/mm3 MPV (9.4-12.3) fl Neut % (Auto) (34.0-71.1) % Lymph % (Auto) (19.3-51.7) % [place] % (Auto) (4.7-12.5) % Eos % (Auto) (0.7-5.8) Baso % (Auto) (0.1-1.2) % Neut # (Auto) (1.56-6.13) K/mm3 Lymph # (Auto) (1.18-3.74) K/mm3 [place] # (Auto) (0.24-0.36) K/mm3 Eos # (Auto) (0.04-0.36) K/mm3 Baso # (Auto) (0.01-0.08) K/mm3 Sodium 138 (136-145) mEq/L Potassium 4.2 (3.5-5.1) mEq/L Chloride 105 (98-107) mEq/L Carbon Dioxide 30 (21-32) mEq/L Anion Gap 7.2 (5-15) BUN 17 (7-18) mg/dL Creatinine 0.5 L (0.55-1.02) mg/dL Est Cr Clr Drug Dosing 104.72 mL/min Estimated GFR (MDRD) > 60 (>60) mL/min BUN/Creatinine Ratio 34.0 H (14-18) Glucose 121 H (80-115) mg/dL POC Glucose 156 H 108 (80-115) mg/dL Calcium 9.1 (8.5-10.1) mg/dL Magnesium 2.1 (1.8-2.4) mg/dl C-Reactive Protein 5.5 H* (<1.0) mg/dL 09/15/17 09/16/17 09/16/17 Range/Units 21:37 05:57 06:35 WBC 9.80 (3.98-10.04) K/mm3 RBC 4.09 (3.98-5.22) M/mm3 Hgb 13.0 (11.2-15.7) gm/L Hct 38.9 (34.1-44.9) % MCV 95.1 H (79.4-94.8) fl MCH 31.8 (25.6-32.2) pg MCHC 33.4 (32.2-35.5) g/dl RDW Std Deviation 39.8 (36.4-46.3) fL Plt Count 174 L (182-369) K/mm3 MPV 12.4 H (9.4-12.3) fl Neut % (Auto) 85.3 H (34.0-71.1) % Lymph % (Auto) 6.3 L (19.3-51.7) % [place] % (Auto) 7.1 (4.7-12.5) % Eos % (Auto) 0.9 (0.7-5.8) Baso % (Auto) 0.2 (0.1-1.2) % Neut # (Auto) 8.35 H (1.56-6.13) K/mm3 Lymph # (Auto) 0.62 L (1.18-3.74) K/mm3 [place] # (Auto) 0.70 H (0.24-0.36) K/mm3 Eos # (Auto) 0.09 (0.04-0.36) K/mm3 Baso # (Auto) 0.02 (0.01-0.08) K/mm3 Sodium (136-145) mEq/L Potassium (3.5-5.1) mEq/L Chloride (98-107) mEq/L Carbon Dioxide (21-32) mEq/L Anion Gap (5-15) BUN (7-18) mg/dL Creatinine (0.55-1.02) mg/dL Est Cr Clr Drug Dosing mL/min Estimated GFR (MDRD) (>60) mL/min BUN/Creatinine Ratio (14-18) Glucose (80-115) mg/dL POC Glucose 110 118 H (80-115) mg/dL Calcium (8.5-10.1) mg/dL Magnesium (1.8-2.4) mg/dl C-Reactive Protein (<1.0) mg/dL Kip Results Last 24 Hrs: Microbiology 09/14/17 18:50 Urine Culture - Preliminary Urine, [place] ([place]) NO GROWTH AFTER 1 DAY Med Orders - Current: Current Medications Acetaminophen (Tylenol) 650 mg PO Q6H PRN PRN Reason: Pain/Fever Hydrocodone Bitart/Acetaminophen ([place] 325-5 Mg) 1 - 2 tab PO Q4H PRN PRN Reason: Pain Last Admin: 09/15/17 17:34 Dose: 1 tab Bisacodyl (Dulcolax) 5 mg PO DAILY PRN PRN Reason: Constipation Cyclobenzaprine HCl (Flexeril) 10 mg PO TID PRN PRN Reason: Spasms Dextrose/Water (Dextrose 50% In Water) 50 ml IVPUSH ASDIRECTED PRN PRN Reason: Hypoglycemia Docusate Sodium (Colace) 100 mg PO BID [facility] Last Admin: 09/15/17 21:08 Dose: 100 mg Enoxaparin Sodium (Lovenox) 40 mg SUBCUT DAILY [facility] Last Admin: 09/15/17 10:15 Dose: 40 mg Famotidine (Pepcid) 20 mg PO Q12H [facility] Last Admin: 09/16/17 06:36 Dose: 20 mg Glipizide (Glucotrol Xl) 10 mg PO DAILY [facility] Last Admin: 09/15/17 10:14 Dose: Not Given Hydromorphone HCl (Dilaudid) 0.5 mg IVPUSH Q4H PRN PRN Reason: Pain (moderate 4-6) Insulin Aspart (Novolog) 0 unit SUBCUT QIDACANDBED [facility]; Protocol Last Admin: 09/16/17 06:36 Dose: Not Given Ketorolac Tromethamine (Toradol) 30 mg IVPUSH Q8H [facility] Stop: 09/16/17 12:01 Last Admin: 09/16/17 04:26 Dose: 30 mg Levothyroxine Sodium (Levothyroxine) 125 mcg PO ACBRK [facility] Last Admin: 09/16/17 06:36 Dose: 125 mcg Magnesium Hydroxide (Milk Of Magnesia) 30 ml PO BID PRN PRN Reason: Constipation Metoclopramide HCl (Reglan) 10 mg IVPUSH Q6H [facility] Last Admin: 09/16/17 06:36 Dose: 10 mg Miscellaneous Information (Remove Patch) 1 ea TRDERM Q72H [facility] Last Admin: 09/14/17 18:35 Dose: Not Given Naloxone HCl (Narcan) 0.1 mg IVPUSH Q5M PRN PRN Reason: Oversedation Ondansetron HCl (Zofran) 4 mg IVPUSH Q8H PRN PRN Reason: Nausea/Vomiting Last Admin: 09/15/17 08:19 Dose: 4 mg Rosuvastatin Calcium (Crestor) 10 mg PO DAILY [facility] Last Admin: 09/15/17 10:15 Dose: 10 mg Scopolamine (Transderm-Scop) 1.5 mg TRDERM Q72H PRN PRN Reason: Nausea/Vomiting Last Admin: 09/14/17 17:28 Dose: 1.5 mg Senna (Senna) 8.6 mg PO BID PRN PRN Reason: Constipation Last Admin: 09/16/17 06:36 Dose: 8.6 mg Sodium Chloride (Saline Flush) 10 ml FLUSH ASDIRECTED PRN PRN Reason: Keep Vein Open Last Admin: 09/13/17 16:39 Dose: 10 ml Discontinued Medications Albuterol (Proventil Neb Soln) 2.5 mg NEB ONETIME ONE Stop: 09/14/17 08:29 Last Admin: 09/14/17 17:44 Dose: Not Given Aspirin (Ecotrin) 325 mg PO BID [facility] Bupivacaine HCl (Marcaine 0.5%) Confirm Administered Dose 30 ml .ROUTE .STK-MED ONE Stop: 09/14/17 06:25 Bupivacaine HCl (Marcaine 0.25%) Confirm Administered Dose 30 ml .ROUTE .STK- MED ONE Stop: 09/14/17 07:20 Last Admin: 09/14/17 08:55 Dose: 8 ml Bupivacaine HCl (Sensorcaine-Mpf 0.75%) Confirm Administered Dose 30 ml .ROUTE .STK-MED ONE Stop: 09/14/17 07:27 Dexamethasone (Dexamethasone) Confirm Administered Dose 8 mg .ROUTE .STK-MED ONE Stop: 09/14/17 08:11 Fentanyl (Sublimaze) Confirm Administered Dose 100 mcg .ROUTE .STK-MED ONE Stop: 09/14/17 07:26 Fentanyl (Sublimaze) 50 mcg IVPUSH Q5M PRN PRN Reason: Pain Hydromorphone HCl (Dilaudid) 0.5 mg IVPUSH ONETIME ONE Stop: 09/13/17 16:26 Last Admin: 09/13/17 16:32 Dose: 0.5 mg Hydromorphone HCl (Dilaudid) 0.5 mg IVPUSH ONETIME ONE Stop: 09/13/17 19:12 Last Admin: 09/13/17 20:37 Dose: 0.5 mg Hydromorphone HCl (Dilaudid) 0.5 mg IV ASDIRECTED PRN PRN Reason: Severe Pain Hydromorphone HCl (Dilaudid) 0.5 mg IVPUSH ASDIRECTED PRN PRN Reason: Severe Pain Sodium Chloride (Normal Saline) 1,000 mls @ 150 mls/hr IV ASDIRECTED [facility] Last Admin: 09/13/17 16:39 Dose: 150 mls/hr Sodium Chloride (Sodium Chloride 0.45%) 1,000 mls @ 125 mls/hr IV ASDIRECTED [facility] Last Admin: 09/13/17 20:38 Dose: 125 mls/hr Cefazolin Sodium/Dextrose 2 gm (/ Premix) 50 mls @ 100 mls/hr IV Q8H [facility] Last Admin: 09/14/17 20:15 Dose: Not Given Lidocaine HCl (Xylocaine-Mpf 1%) Confirm Administered Dose 4 mls @ as directed .ROUTE .STK-MED ONE Stop: 09/14/17 07:27 Lactated Ringer's (Ringers, Lactated) Confirm Administered Dose 2,000 mls @ as directed .ROUTE .STK-MED ONE Stop: 09/14/17 08:11 Cefazolin Sodium/Dextrose 2 gm (/ Premix) 50 mls @ 100 mls/hr IV Q8H [facility] Stop: 09/15/17 08:29 Last Admin: 09/15/17 08:16 Dose: 100 mls/hr Ketamine HCl (Ketalar) Confirm Administered Dose 500 mg .ROUTE .STK-MED ONE Stop: 09/14/17 07:27 Ketorolac Tromethamine (Toradol) 15 mg IVPUSH Q6H [facility] Last Admin: 09/14/17 20:15 Dose: Not Given Ketorolac Tromethamine (Toradol) 30 mg IVPUSH Q6H [facility] Stop: 09/16/17 06:01 Last Admin: 09/15/17 12:17 Dose: 30 mg Meperidine HCl (Demerol) 12.5 mg IVPUSH ONETIME PRN PRN Reason: Shivering Metoclopramide HCl (Reglan) 10 mg IVPUSH Q6H [facility] Midazolam HCl (Versed 1 Mg/Ml) Confirm Administered Dose 2 mg .ROUTE .STK-MED ONE Stop: 09/14/17 07:27 Morphine Sulfate (Duramorph Pf) Confirm Administered Dose 1 mg .ROUTE .STK-MED ONE Stop: 09/14/17 07:35 Ondansetron HCl (Zofran) 4 mg IVPUSH ONETIME ONE Stop: 09/13/17 16:30 Last Admin: 09/13/17 16:38 Dose: 4 mg Ondansetron HCl (Zofran) Confirm Administered Dose 4 mg .ROUTE .STK-MED ONE Stop: 09/14/17 08:21 Ondansetron HCl (Zofran) 4 mg IVPUSH ONETIME PRN PRN Reason: Nausea/Vomiting Propofol (Diprivan 20 Ml) Confirm Administered Dose 600 mg .ROUTE .STK-MED ONE Stop: 09/14/17 07:26 - Exam Wound/Incisions: Dressing Dry and Intact General: Alert, Cooperative, No Acute Distress Lungs: Normal Respiratory Effort Extremities: Other (NVS intact for BLE. Dion's negative for BLE. Right thigh soft, min tender.) - Problem List Review Problem List Initiated/Reviewed/Updated: Yes - My Orders Last 24 Hours: Active Orders 24 hr Category Date Time Status ADA Diabetic [[place] Diet] [DIET Diet 09/16/17 Breakfast Active ] Full Liquid Diet [DIET] Diet 09/15/17 Dinner Active Heart Healthy Diet [DIET] Diet 09/15/17 Dinner Active BMP [BASIC METABOLIC PANEL,BMP] [CHEM] DAILY Lab 09/16/17 05:57 Received BMP [BASIC METABOLIC PANEL,BMP] [CHEM] DAILY Lab 09/17/17 05:00 Ordered CBC WITH AUTO DIFF [HEME] DAILY Lab 09/16/17 05:57 Results CBC WITH AUTO DIFF [HEME] DAILY Lab 09/17/17 05:00 Ordered CRP [C-REACTIVE PROTEIN] [CHEM] DAILY Lab 09/16/17 05:57 Received CRP [C-REACTIVE PROTEIN] [CHEM] DAILY Lab 09/17/17 05:00 Ordered MAGNESIUM [CHEM] DAILY Lab 09/16/17 05:57 Received MAGNESIUM [CHEM] DAILY Lab 09/17/17 05:00 Ordered Enoxaparin [Lovenox] Med 09/15/17 09:00 Active 40 mg SUBCUT DAILY Ketorolac [Toradol] Med 09/15/17 20:00 Active 30 mg IVPUSH Q8H Metoclopramide [Reglan] Med 09/15/17 13:00 Active 10 mg IVPUSH Q6H Medication Orders Acetaminophen (Tylenol) 650 mg PO Q6H PRN PRN Reason: Pain/Fever Hydrocodone Bitart/Acetaminophen ([place] 325-5 Mg) 1 - 2 tab PO Q4H PRN PRN Reason: Pain Last Admin: 09/15/17 17:34 Dose: 1 tab Admin: 09/15/17 08:19 Dose: 1 tab Bisacodyl (Dulcolax) 5 mg PO DAILY PRN PRN Reason: Constipation Cyclobenzaprine HCl (Flexeril) 10 mg PO TID PRN PRN Reason: Spasms Dextrose/Water (Dextrose 50% In Water) 50 ml IVPUSH ASDIRECTED PRN PRN Reason: Hypoglycemia Docusate Sodium (Colace) 100 mg PO BID [facility] Last Admin: 09/15/17 21:08 Dose: 100 mg Admin: 09/15/17 10:15 Dose: 100 mg Admin: 09/14/17 20:59 Dose: 100 mg Admin: 09/14/17 11:22 Dose: 100 mg Enoxaparin Sodium (Lovenox) 40 mg SUBCUT DAILY [facility] Last Admin: 09/15/17 10:15 Dose: 40 mg Famotidine (Pepcid) 20 mg PO Q12H [facility] Last Admin: 09/16/17 06:36 Dose: 20 mg Admin: 09/15/17 18:42 Dose: 20 mg Admin: 09/15/17 06:51 Dose: Admin: 09/15/17 06:18 Dose: 20 mg Admin: 09/14/17 18:35 Dose: 20 mg Admin: 09/14/17 11:21 Dose: 20 mg Glipizide (Glucotrol Xl) 10 mg PO DAILY [facility] Last Admin: 09/15/17 10:14 Dose: Admin: 09/14/17 11:22 Dose: 10 mg Hydromorphone HCl (Dilaudid) 0.5 mg IVPUSH Q4H PRN PRN Reason: Pain (moderate 4-6) Insulin Aspart (Novolog) 0 unit SUBCUT QIDACANDBED [facility]; Protocol Last Admin: 09/16/17 06:36 Dose: Not Given Admin: 09/15/17 22:33 Dose: Not Given Admin: 09/15/17 17:19 Dose: Admin: 09/15/17 11:10 Dose: Not Given Admin: 09/15/17 06:22 Dose: Not Given Admin: 09/14/17 23:26 Dose: Admin: 09/14/17 16:02 Dose: 2 unit Admin: 09/14/17 11:22 Dose: 1 unit Admin: 09/14/17 06:20 Dose: Not Given Admin: 09/13/17 21:25 Dose: Not Given Ketorolac Tromethamine (Toradol) 30 mg IVPUSH Q8H [facility] Stop: 09/16/17 12:01 Last Admin: 09/16/17 04:26 Dose: 30 mg Admin: 09/15/17 21:09 Dose: 30 mg Levothyroxine Sodium (Levothyroxine) 125 mcg PO ACBRK [facility] Last Admin: 09/16/17 06:36 Dose: 125 mcg Admin: 09/15/17 06:18 Dose: 125 mcg Admin: 09/14/17 05:15 Dose: Magnesium Hydroxide (Milk Of Magnesia) 30 ml PO BID PRN PRN Reason: Constipation Metoclopramide HCl (Reglan) 10 mg IVPUSH Q6H [facility] Last Admin: 09/16/17 06:36 Dose: 10 mg Admin: 09/16/17 00:22 Dose: 10 mg Admin: 09/15/17 18:22 Dose: 10 mg Admin: 09/15/17 13:24 Dose: 10 mg Miscellaneous Information (Remove Patch) 1 ea TRDERM Q72H [facility] Last Admin: 09/14/17 18:35 Dose: Not Given Naloxone HCl (Narcan) 0.1 mg IVPUSH Q5M PRN PRN Reason: Oversedation Ondansetron HCl (Zofran) 4 mg IVPUSH Q8H PRN PRN Reason: Nausea/Vomiting Last Admin: 09/15/17 08:19 Dose: 4 mg Admin: 09/14/17 14:14 Dose: 4 mg Rosuvastatin Calcium (Crestor) 10 mg PO DAILY [facility] Last Admin: 09/15/17 10:15 Dose: 10 mg Admin: 09/14/17 11:21 Dose: 10 mg Scopolamine (Transderm-Scop) 1.5 mg TRDERM Q72H PRN PRN Reason: Nausea/Vomiting Last Admin: 09/14/17 17:28 Dose: 1.5 mg Senna (Senna) 8.6 mg PO BID PRN PRN Reason: Constipation Last Admin: 09/16/17 06:36 Dose: 8.6 mg Sodium Chloride (Saline Flush) 10 ml FLUSH ASDIRECTED PRN PRN Reason: Keep Vein Open Last Admin: 09/13/17 16:39 Dose: 10 ml - Assessment Assessment (Free Text/Narrative):: POD#2 - perc screw fixation right hip - Plan Plan (Free Text/Narrative):: 1. Lovenox, frequent mobility, SCDs, TEDs. 2. Medical management and further orders per Hospitalist service. 3. P.T. and O.T. - 50% weight bearing at this time. The pt's case was discussed with Dr. Vieira.
[2017-09-16] MEDS: Enoxaparin 40 MG/0.4 ML Syringe SUBCUT SCH (09:25)
[2017-09-16] MEDS: Rosuvastatin 10 MG Tab PO SCH (09:26)
[2017-09-16] MEDS: glipiZIDE 5 MG Tab.ER PO SCH (09:26)
[2017-09-16] MEDS: Docusate Sodium 100 MG Cap PO SCH ×2 (09:26→20:46)
--- NOTE | 2017-09-16 13:43 | PCM.PN ---
- General Info Date of Service: 09/16/17 Admission Dx/Problem (Free Text): Admission Diagnosis/Problem Admission Diagnosis/Problem Hip fracture requiring operative repair Subjective Update: In to see Yuliana today. She is post op day 2 from right hip surgery. She is sitting in a chair. Overall she is doing quite well. She has no complaints. She has been sleeping well. Good appetite, wants to be back on a full diet- currently on full liquid and then soft diet for dinner tonight. Pain is controlled. Increase activity as tolerated. Urinating. Incentive Spirometry. No concerns from nursing. Most likely D/C tomorrow pending labs and ortho team recommendation. Functional Status: Reports: Pain Controlled, Tolerating Diet, Ambulating, Urinating, Incentive Spirometry - Review of Systems General: Reports: No Symptoms. Denies: Fever, Weakness, Fatigue, Chills HEENT: Reports: No Symptoms Pulmonary: Reports: No Symptoms. Denies: Shortness of Breath, Cough Cardiovascular: Reports: No Symptoms. Denies: Chest Pain, Palpitations Gastrointestinal: Reports: No Symptoms. Denies: Abdominal Pain, Diarrhea, Nausea, Vomiting Genitourinary: Reports: No Symptoms. Denies: Dysuria, Frequency, Burning, Pain , Urgency Musculoskeletal: Reports: No Symptoms Skin: Reports: No Symptoms Neurological: Reports: No Symptoms Psychiatric: Reports: No Symptoms - Patient Data Vitals - Most Recent: Last Vital Signs Temp 98.2 F 09/16/17 10:56 Pulse 70 09/16/17 10:56 Resp 16 09/16/17 10:56 BP 98/57 L 09/16/17 10:56 Pulse Ox 90 L 09/16/17 10:56 Weight - Most Recent: 189 lb I&O - Last 24 Hours: Intake & Output 09/15/17 09/16/17 09/16/17 22:59 06:59 14:59 Intake Total 490 550 440 Output Total 220 Balance 270 550 440 Lab Results Last 24 Hours: Laboratory Results - last 24 hr 09/15/17 09/15/17 09/16/17 Range/Units 17:10 21:37 05:57 WBC 9.80 (3.98-10.04) K/mm3 RBC 4.09 (3.98-5.22) M/mm3 Hgb 13.0 (11.2-15.7) gm/L Hct 38.9 (34.1-44.9) % MCV 95.1 H (79.4-94.8) fl MCH 31.8 (25.6-32.2) pg MCHC 33.4 (32.2-35.5) g/dl RDW Std Deviation 39.8 (36.4-46.3) fL Plt Count 174 L (182-369) K/mm3 MPV 12.4 H (9.4-12.3) fl Neut % (Auto) 85.3 H (34.0-71.1) % Lymph % (Auto) 6.3 L (19.3-51.7) % [place] % (Auto) 7.1 (4.7-12.5) % Eos % (Auto) 0.9 (0.7-5.8) Baso % (Auto) 0.2 (0.1-1.2) % Neut # (Auto) 8.35 H (1.56-6.13) K/mm3 Lymph # (Auto) 0.62 L (1.18-3.74) K/mm3 [place] # (Auto) 0.70 H (0.24-0.36) K/mm3 Eos # (Auto) 0.09 (0.04-0.36) K/mm3 Baso # (Auto) 0.02 (0.01-0.08) K/mm3 Manual Slide Review Abnormal smear Sodium (136-145) mEq/L Potassium (3.5-5.1) mEq/L Chloride (98-107) mEq/L Carbon Dioxide (21-32) mEq/L Anion Gap (5-15) BUN (7-18) mg/dL Creatinine (0.55-1.02) mg/dL Est Cr Clr Drug Dosing mL/min Estimated GFR (MDRD) (>60) mL/min BUN/Creatinine Ratio (14-18) Glucose (80-115) mg/dL POC Glucose 108 110 (80-115) mg/dL Calcium (8.5-10.1) mg/dL Magnesium (1.8-2.4) mg/dl C-Reactive Protein (<1.0) mg/dL 09/16/17 09/16/17 09/16/17 Range/Units 05:57 06:35 10:52 WBC (3.98-10.04) K/mm3 RBC (3.98-5.22) M/mm3 Hgb (11.2-15.7) gm/L Hct (34.1-44.9) % MCV (79.4-94.8) fl MCH (25.6-32.2) pg MCHC (32.2-35.5) g/dl RDW Std Deviation (36.4-46.3) fL Plt Count (182-369) K/mm3 MPV (9.4-12.3) fl Neut % (Auto) (34.0-71.1) % Lymph % (Auto) (19.3-51.7) % [place] % (Auto) (4.7-12.5) % Eos % (Auto) (0.7-5.8) Baso % (Auto) (0.1-1.2) % Neut # (Auto) (1.56-6.13) K/mm3 Lymph # (Auto) (1.18-3.74) K/mm3 [place] # (Auto) (0.24-0.36) K/mm3 Eos # (Auto) (0.04-0.36) K/mm3 Baso # (Auto) (0.01-0.08) K/mm3 Manual Slide Review Sodium 137 (136-145) mEq/L Potassium 4.3 (3.5-5.1) mEq/L Chloride 105 (98-107) mEq/L Carbon Dioxide 29 (21-32) mEq/L Anion Gap 7.3 (5-15) BUN 14 (7-18) mg/dL Creatinine 0.6 (0.55-1.02) mg/dL Est Cr Clr Drug Dosing 87.27 mL/min Estimated GFR (MDRD) > 60 (>60) mL/min BUN/Creatinine Ratio 23.3 H (14-18) Glucose 114 (80-115) mg/dL POC Glucose 118 H 123 H (80-115) mg/dL Calcium 9.0 (8.5-10.1) mg/dL Magnesium 2.1 (1.8-2.4) mg/dl C-Reactive Protein 6.9 H* (<1.0) mg/dL Kip Results Last 24 Hours: Microbiology 09/14/17 18:50 Urine Culture - Final Urine, [place] Cath ([place]) NO GROWTH AFTER 2 DAYS Med Orders - Current: Current Medications Acetaminophen (Tylenol) 650 mg PO Q6H PRN PRN Reason: Pain/Fever Hydrocodone Bitart/Acetaminophen ([place] 325-5 Mg) 1 - 2 tab PO Q4H PRN PRN Reason: Pain Last Admin: 09/15/17 17:34 Dose: 1 tab Bisacodyl (Dulcolax) 5 mg PO DAILY PRN PRN Reason: Constipation Cyclobenzaprine HCl (Flexeril) 10 mg PO TID PRN PRN Reason: Spasms Dextrose/Water (Dextrose 50% In Water) 50 ml IVPUSH ASDIRECTED PRN PRN Reason: Hypoglycemia Docusate Sodium (Colace) 100 mg PO BID [facility] Last Admin: 09/16/17 09:26 Dose: 100 mg Enoxaparin Sodium (Lovenox) 40 mg SUBCUT DAILY [facility] Last Admin: 09/16/17 09:25 Dose: 40 mg Famotidine (Pepcid) 20 mg PO Q12H [facility] Last Admin: 09/16/17 06:36 Dose: 20 mg Glipizide (Glucotrol Xl) 10 mg PO DAILY [facility] Last Admin: 09/16/17 09:26 Dose: 10 mg Hydromorphone HCl (Dilaudid) 0.5 mg IVPUSH Q4H PRN PRN Reason: Pain (moderate 4-6) Insulin Aspart (Novolog) 0 unit SUBCUT QIDACANDBED [facility]; Protocol Last Admin: 09/16/17 11:36 Dose: Not Given Levothyroxine Sodium (Levothyroxine) 125 mcg PO ACBRK [facility] Last Admin: 09/16/17 06:36 Dose: 125 mcg Magnesium Hydroxide (Milk Of Magnesia) 30 ml PO BID PRN PRN Reason: Constipation Metoclopramide HCl (Reglan) 10 mg IVPUSH Q6H [facility] Last Admin: 09/16/17 12:23 Dose: 10 mg Miscellaneous Information (Remove Patch) 1 ea TRDERM Q72H [facility] Last Admin: 09/14/17 18:35 Dose: Not Given Naloxone HCl (Narcan) 0.1 mg IVPUSH Q5M PRN PRN Reason: Oversedation Ondansetron HCl (Zofran) 4 mg IVPUSH Q8H PRN PRN Reason: Nausea/Vomiting Last Admin: 09/15/17 08:19 Dose: 4 mg Rosuvastatin Calcium (Crestor) 10 mg PO DAILY MAMTA Last Admin: 09/16/17 09:26 Dose: 10 mg Scopolamine (Transderm-Scop) 1.5 mg TRDERM Q72H PRN PRN Reason: Nausea/Vomiting Last Admin: 09/14/17 17:28 Dose: 1.5 mg Senna (Senna) 8.6 mg PO BID PRN PRN Reason: Constipation Last Admin: 09/16/17 06:36 Dose: 8.6 mg Sodium Chloride (Saline Flush) 10 ml FLUSH ASDIRECTED PRN PRN Reason: Keep Vein Open Last Admin: 09/13/17 16:39 Dose: 10 ml Discontinued Medications Albuterol (Proventil Neb Soln) 2.5 mg NEB ONETIME ONE Stop: 09/14/17 08:29 Last Admin: 09/14/17 17:44 Dose: Not Given Aspirin (Ecotrin) 325 mg PO BID [facility] Bupivacaine HCl (Marcaine 0.5%) Confirm Administered Dose 30 ml .ROUTE .STK-MED ONE Stop: 09/14/17 06:25 Bupivacaine HCl (Marcaine 0.25%) Confirm Administered Dose 30 ml .ROUTE .STK- MED ONE Stop: 09/14/17 07:20 Last Admin: 09/14/17 08:55 Dose: 8 ml Bupivacaine HCl (Sensorcaine-Mpf 0.75%) Confirm Administered Dose 30 ml .ROUTE .STK-MED ONE Stop: 09/14/17 07:27 Dexamethasone (Dexamethasone) Confirm Administered Dose 8 mg .ROUTE .STK-MED ONE Stop: 09/14/17 08:11 Fentanyl (Sublimaze) Confirm Administered Dose 100 mcg .ROUTE .STK-MED ONE Stop: 09/14/17 07:26 Fentanyl (Sublimaze) 50 mcg IVPUSH Q5M PRN PRN Reason: Pain Hydromorphone HCl (Dilaudid) 0.5 mg IVPUSH ONETIME ONE Stop: 09/13/17 16:26 Last Admin: 09/13/17 16:32 Dose: 0.5 mg Hydromorphone HCl (Dilaudid) 0.5 mg IVPUSH ONETIME ONE Stop: 09/13/17 19:12 Last Admin: 09/13/17 20:37 Dose: 0.5 mg Hydromorphone HCl (Dilaudid) 0.5 mg IV ASDIRECTED PRN PRN Reason: Severe Pain Hydromorphone HCl (Dilaudid) 0.5 mg IVPUSH ASDIRECTED PRN PRN Reason: Severe Pain Sodium Chloride (Normal Saline) 1,000 mls @ 150 mls/hr IV ASDIRECTED [facility] Last Admin: 09/13/17 16:39 Dose: 150 mls/hr Sodium Chloride (Sodium Chloride 0.45%) 1,000 mls @ 125 mls/hr IV ASDIRECTED [facility] Last Admin: 09/13/17 20:38 Dose: 125 mls/hr Cefazolin Sodium/Dextrose 2 gm (/ Premix) 50 mls @ 100 mls/hr IV Q8H [facility] Last Admin: 09/14/17 20:15 Dose: Not Given Lidocaine HCl (Xylocaine-Mpf 1%) Confirm Administered Dose 4 mls @ as directed .ROUTE .STK-MED ONE Stop: 09/14/17 07:27 Lactated Ringer's (Ringers, Lactated) Confirm Administered Dose 2,000 mls @ as directed .ROUTE .STK-MED ONE Stop: 09/14/17 08:11 Cefazolin Sodium/Dextrose 2 gm (/ Premix) 50 mls @ 100 mls/hr IV Q8H [facility] Stop: 09/15/17 08:29 Last Admin: 09/15/17 08:16 Dose: 100 mls/hr Ketamine HCl (Ketalar) Confirm Administered Dose 500 mg .ROUTE .STK-MED ONE Stop: 09/14/17 07:27 Ketorolac Tromethamine (Toradol) 15 mg IVPUSH Q6H [facility] Last Admin: 09/14/17 20:15 Dose: Not Given Ketorolac Tromethamine (Toradol) 30 mg IVPUSH Q6H [facility] Stop: 09/16/17 06:01 Last Admin: 09/15/17 12:17 Dose: 30 mg Ketorolac Tromethamine (Toradol) 30 mg IVPUSH Q8H [facility] Stop: 09/16/17 12:01 Last Admin: 09/16/17 12:23 Dose: 30 mg Meperidine HCl (Demerol) 12.5 mg IVPUSH ONETIME PRN PRN Reason: Shivering Metoclopramide HCl (Reglan) 10 mg IVPUSH Q6H MAMTA Midazolam HCl (Versed 1 Mg/Ml) Confirm Administered Dose 2 mg .ROUTE .STK-MED ONE Stop: 09/14/17 07:27 Morphine Sulfate (Duramorph Pf) Confirm Administered Dose 1 mg .ROUTE .STK-MED ONE Stop: 09/14/17 07:35 Ondansetron HCl (Zofran) 4 mg IVPUSH ONETIME ONE Stop: 09/13/17 16:30 Last Admin: 09/13/17 16:38 Dose: 4 mg Ondansetron HCl (Zofran) Confirm Administered Dose 4 mg .ROUTE .STK-MED ONE Stop: 09/14/17 08:21 Ondansetron HCl (Zofran) 4 mg IVPUSH ONETIME PRN PRN Reason: Nausea/Vomiting Propofol (Diprivan 20 Ml) Confirm Administered Dose 600 mg .ROUTE .STK-MED ONE Stop: 09/14/17 07:26 - Exam Quality Assessment: Supplemental Oxygen (0.5 nasal cannula), DVT Prophylaxis. No: Urine Catheter General: Alert, Oriented, Cooperative, No Acute Distress HEENT: Pupils Equal, Pupils Reactive, EOMI, Mucous Membr. Moist/[place] Neck: Supple Lungs: Clear to Auscultation, Normal Respiratory Effort Cardiovascular: Regular Rate, Regular Rhythm GI/Abdominal Exam: Normal Bowel Sounds, Soft, Non-Tender, No Organomegaly, No Distention, No Abnormal Bruit, No Mass, Pelvis Stable (Female) Exam: Deferred Back Exam: Normal Inspection, Full Range of Motion Extremities: Normal Inspection, No Pedal Edema, Normal Capillary Refill, Limited Range of Motion (s/p right hip surgery) Peripheral Pulses: 2+: Posterior Tibial (L), Posterior Tibial (R), Dorsalis Pedis (L), Dorsalis Pedis (R) Skin: Warm, Dry, Intact Wound/Incisions: Healing Well, Dressing Dry and Intact, No Drainage Neurological: No New Focal Deficit Psy/Mental Status: Alert, Normal Affect, Normal Mood - Problem List & Annotations (1) Closed right hip fracture SNOMED Code(s): 154611037 Code(s): S72.001A - FRACTURE OF UNSP PART OF NECK OF RIGHT FEMUR, INIT Status: Acute Priority: High Current Visit: Yes Qualifiers: Encounter type: initial encounter Qualified Code(s): S72.001A - Fracture of unspecified part of neck of right femur, initial encounter for closed fracture (2) Diabetes mellitus SNOMED Code(s): 92369392 Code(s): E11.9 - TYPE 2 DIABETES MELLITUS WITHOUT COMPLICATIONS Status: Acute Current Visit: Yes Qualifiers: Diabetes mellitus type: type 2 Diabetes mellitus supervisor intermediates insulin use: unspecified supervisor intermediates insulin use status Diabetes mellitus complication status : with unspecified complications Qualified Code(s): E11.8 - Type 2 diabetes mellitus with unspecified complications (3) Hyperlipidemia associated with type 2 diabetes mellitus SNOMED Code(s): 777051325086, 056465098602 Code(s): E11.69 - TYPE 2 DIABETES MELLITUS WITH OTHER SPECIFIED COMPLICATION ; E78.5 - HYPERLIPIDEMIA, UNSPECIFIED Status: Chronic Priority: Low Current Visit: Yes (4) Hypertension SNOMED Code(s): 06909919 Code(s): I10 - ESSENTIAL (PRIMARY) HYPERTENSION Status: Chronic Priority : Medium Current Visit: Yes Qualifiers: Hypertension type: unspecified Qualified Code(s): I10 - Essential (primary ) hypertension (5) COPD (chronic obstructive pulmonary disease) SNOMED Code(s): 04619116 Code(s): J44.9 - CHRONIC OBSTRUCTIVE PULMONARY DISEASE, UNSPECIFIED Status : Chronic Priority: Medium Current Visit: Yes Qualifiers: COPD type: unspecified COPD Qualified Code(s): J44.9 - Chronic obstructive pulmonary disease, unspecified - Problem List Review Problem List Initiated/Reviewed/Updated: Yes - My Orders Last 24 Hours: My Active Orders 09/16/17 Dinner Soft Diet [DIET] 09/17/17 Breakfast ADA Diabetic [[place] [employer] Diet] [DIET] - Plan Plan:: Impression: Acute: Right femur neck fracture -POD 2 percut fixation of femur neck fracture -S/P fall with subsequent closed right hip fracture -POST OP NAUSEA, DIET CHANGED TO NPO-->advance as tolerated -No outside food. Chronic: HTN DM type 2 HLD on a statin COPD with active tobacco use -no interest in quitting -declines nicotine replacement Plan: IVF Hold Metformin Home meds Pain meds; Toradol as tolerated DC 09/16/17. Pre op labs; scheduled as per Ortho NPO after MN except meds Check HgB, DM ed and teaching Dietary consultation Nicotine replacement and tobacco cessation education Consult PT/OT/SW post op; expected hosp stay 96 hours DVT/GI prophylaxis Most likely D/C tomorrow, pending labs and ortho team recommendation. PCP is Lavonne James. Pt is a DNR/DNI.
--- NOTE | 2017-09-16 22:13 | PCM.OPNOTE ---
- General Post-Op/Procedure Note Date of Surgery/Procedure: 09/14/17 Operative Procedure(s): percutaneous fixation of right subcapital femoral neck fracture Pre Op Diagnosis: valgus impacted right femoral neck fracture Post-Op Diagnosis: Same Anesthesia Technique: Local, MAC, Spinal Primary Surgeon: Prabhu Vieira Anesthesia Provider: Orin Patton Twisting Frame Fixer: Nicky Pappas in mLs: 10 Complications: None Condition: Good Free Text/Narrative:: Intake & Output 09/16/17 09/16/17 09/16/17 06:59 14:59 22:59 Intake Total 550 880 750 Output Total 300 Balance 550 880 450
[2017-09-17] MEDS: Levothyroxine 125 MCG Tab PO SCH (06:18)
[2017-09-17] MEDS: Famotidine 20 MG Tab PO SCH (06:29)
[2017-09-17] MEDS: Insulin Aspart 100 Units/ML 3 ML Pen SUBCUT SCH ×2 (06:32→12:34)
--- NOTE | 2017-09-17 07:41 | OR ---
DATE OF OPERATION: 09/14/2017 SURGEON: Prabhu Vieira MD OPERATION PERFORMED: Percutaneous fixation of right subcapital femoral neck fracture. PREOPERATIVE DIAGNOSIS: Valgus impacted right femoral neck fracture. POSTOPERATIVE DIAGNOSIS: Valgus impacted right femoral neck fracture. ANESTHESIA: Local MAC with spinal. ANESTHESIA PROVIDER: Maggie Castillo. INDUSTRIAL RELATIONS WORKER: Nicky Pappas PA-C. ESTIMATED BLOOD LOSS: 10 mL. COMPLICATIONS: None. CONDITION: Stable. DESCRIPTION OF PROCEDURE: The patient was identified in the preop holding area. Proper site was marked and identified by the surgeon. The patient was taken back to the operating theater where after adequate anesthesia, the patient was placed in supine on a [place] table. The left lower extremity was placed in a traction boot, no traction was applied. Right lower extremity was placed in a traction boot, and after the post was placed, the patient just had minor amount of gross traction applied to the right lower extremity just so that the leg was taut but no gross traction or fine traction was applied. At this time, C-arm fluoroscopy showed complete reduction with no signs of varus step-off or displacement of the right subcapital femoral neck fracture. At this time, the patient's right hip was sterilely prepped and draped in the usual sterile fashion. OR time-out was performed. The patient received 2 g IV Ancef. At this time, guidepins for the 6.5 partially threaded cannulated screws were placed. First, the inferior one was placed making sure not to go below the level of the lesser trochanter and was placed in the posterior inferior portion of the femoral neck and was found to be in good position in the femoral head and neck on both AP and lateral views. At this time, 2 were brought proximally up in the anterior and then posterior proximal portion of the neck to make a triangle configuration. At this time, they were found to be in adequate position on both AP and lateral views with no penetration of the femoral head. At this time, three 6.5 mm partially threaded cannulated screws were placed. First, the inferior, then the posterior superior and then the anterior superior were then placed. At this time, there was found to be anatomic reduction and good purchase with all of the screws. Adequate saline was then irrigated through the 3 focal incisions and these focal incisions were closed. The patient was placed in a sterile soft dressing and sent to PACU in stable condition. Will be 50% weightbearing. MMODAL /[id number]
[2017-09-17] MEDS: glipiZIDE 5 MG Tab.ER PO SCH (10:31)
[2017-09-17] MEDS: Rosuvastatin 10 MG Tab PO SCH (10:31)
[2017-09-17] MEDS: Enoxaparin 40 MG/0.4 ML Syringe SUBCUT SCH (10:32)
[2017-09-17] MEDS: Docusate Sodium 100 MG Cap PO SCH (10:32)
--- NOTE | 2017-09-17 12:44 | PCM.SURGPN ---
- General Info Date of Service: 09/17/17 POD#: 3 Functional Status: Reports: Pain Controlled, Tolerating Diet, Ambulating, Urinating - Review of Systems Musculoskeletal: Reports: Other (The pt feels prepared for discharge to home.) - Patient Data Vitals - Most Recent: Last Vital Signs Temp 98.2 F 09/17/17 12:02 Pulse 72 09/17/17 12:02 Resp 20 09/17/17 12:02 BP 124/67 09/17/17 12:02 Pulse Ox 91 L 09/17/17 12:02 Weight - Most Recent: 188 lb 6.4 oz I&O - Last 24 Hours: Intake & Output 09/16/17 09/17/17 09/17/17 22:59 06:59 14:59 Intake Total 750 900 Output Total 300 300 Balance 450 600 Lab Results Last 24 Hrs: Laboratory Results - last 24 hr 09/16/17 09/16/17 09/17/17 Range/Units 17:23 21:42 05:57 WBC (3.98-10.04) K/mm3 RBC (3.98-5.22) M/mm3 Hgb (11.2-15.7) gm/L Hct (34.1-44.9) % MCV (79.4-94.8) fl MCH (25.6-32.2) pg MCHC (32.2-35.5) g/dl RDW Std Deviation (36.4-46.3) fL Plt Count (182-369) K/mm3 MPV (9.4-12.3) fl Neut % (Auto) (34.0-71.1) % Lymph % (Auto) (19.3-51.7) % [place] % (Auto) (4.7-12.5) % Eos % (Auto) (0.7-5.8) Baso % (Auto) (0.1-1.2) % Neut # (Auto) (1.56-6.13) K/mm3 Lymph # (Auto) (1.18-3.74) K/mm3 [place] # (Auto) (0.24-0.36) K/mm3 Eos # (Auto) (0.04-0.36) K/mm3 Baso # (Auto) (0.01-0.08) K/mm3 Manual Slide Review Sodium (136-145) mEq/L Potassium (3.5-5.1) mEq/L Chloride (98-107) mEq/L Carbon Dioxide (21-32) mEq/L Anion Gap (5-15) BUN (7-18) mg/dL Creatinine (0.55-1.02) mg/dL Est Cr Clr Drug Dosing mL/min Estimated GFR (MDRD) (>60) mL/min BUN/Creatinine Ratio (14-18) Glucose (80-115) mg/dL POC Glucose 146 H 92 83 (80-115) mg/dL Calcium (8.5-10.1) mg/dL Magnesium (1.8-2.4) mg/dl C-Reactive Protein (<1.0) mg/dL 09/17/17 09/17/17 09/17/17 Range/Units 07:06 07:06 11:22 WBC 8.38 (3.98-10.04) K/mm3 RBC 4.21 (3.98-5.22) M/mm3 Hgb 13.4 (11.2-15.7) gm/L Hct 39.3 (34.1-44.9) % MCV 93.3 (79.4-94.8) fl MCH 31.8 (25.6-32.2) pg MCHC 34.1 (32.2-35.5) g/dl RDW Std Deviation 38.0 (36.4-46.3) fL Plt Count 201 (182-369) K/mm3 MPV 12.1 (9.4-12.3) fl Neut % (Auto) 81.8 H (34.0-71.1) % Lymph % (Auto) 8.8 L (19.3-51.7) % [place] % (Auto) 7.6 (4.7-12.5) % Eos % (Auto) 1.1 (0.7-5.8) Baso % (Auto) 0.5 (0.1-1.2) % Neut # (Auto) 6.85 H (1.56-6.13) K/mm3 Lymph # (Auto) 0.74 L (1.18-3.74) K/mm3 [place] # (Auto) 0.64 H (0.24-0.36) K/mm3 Eos # (Auto) 0.09 (0.04-0.36) K/mm3 Baso # (Auto) 0.04 (0.01-0.08) K/mm3 Manual Slide Review Abnormal smear Sodium 140 (136-145) mEq/L Potassium 4.2 (3.5-5.1) mEq/L Chloride 107 (98-107) mEq/L Carbon Dioxide 30 (21-32) mEq/L Anion Gap 7.2 (5-15) BUN 10 (7-18) mg/dL Creatinine 0.6 (0.55-1.02) mg/dL Est Cr Clr Drug Dosing 87.27 mL/min Estimated GFR (MDRD) > 60 (>60) mL/min BUN/Creatinine Ratio 16.7 (14-18) Glucose 100 (80-115) mg/dL POC Glucose 105 (80-115) mg/dL Calcium 9.1 (8.5-10.1) mg/dL Magnesium 2.2 (1.8-2.4) mg/dl C-Reactive Protein 5.7 H* (<1.0) mg/dL Kip Results Last 24 Hrs: Microbiology 09/14/17 18:50 Urine Culture - Final Urine, [place] Cath ([place]) NO GROWTH AFTER 2 DAYS Med Orders - Current: Current Medications Acetaminophen (Tylenol) 650 mg PO Q6H PRN PRN Reason: Pain/Fever Hydrocodone Bitart/Acetaminophen ([place] 325-5 Mg) 1 - 2 tab PO Q4H PRN PRN Reason: Pain Last Admin: 09/15/17 17:34 Dose: 1 tab Bisacodyl (Dulcolax) 5 mg PO DAILY PRN PRN Reason: Constipation Cyclobenzaprine HCl (Flexeril) 10 mg PO TID PRN PRN Reason: Spasms Dextrose/Water (Dextrose 50% In Water) 50 ml IVPUSH ASDIRECTED PRN PRN Reason: Hypoglycemia Docusate Sodium (Colace) 100 mg PO BID [facility] Last Admin: 09/17/17 10:32 Dose: 100 mg Enoxaparin Sodium (Lovenox) 40 mg SUBCUT DAILY [facility] Last Admin: 09/17/17 10:32 Dose: 40 mg Famotidine (Pepcid) 20 mg PO Q12H [facility] Last Admin: 09/17/17 06:29 Dose: 20 mg Glipizide (Glucotrol Xl) 10 mg PO DAILY [facility] Last Admin: 09/17/17 10:31 Dose: 10 mg Hydromorphone HCl (Dilaudid) 0.5 mg IVPUSH Q4H PRN PRN Reason: Pain (moderate 4-6) Insulin Aspart (Novolog) 0 unit SUBCUT QIDACANDBED [facility]; Protocol Last Admin: 09/17/17 12:34 Dose: Not Given Levothyroxine Sodium (Levothyroxine) 125 mcg PO ACBRK [facility] Last Admin: 09/17/17 06:18 Dose: 125 mcg Magnesium Hydroxide (Milk Of Magnesia) 30 ml PO BID PRN PRN Reason: Constipation Last Admin: 09/17/17 06:19 Dose: 30 ml Miscellaneous Information (Remove Patch) 1 ea TRDERM Q72H [facility] Last Admin: 09/14/17 18:35 Dose: Not Given Naloxone HCl (Narcan) 0.1 mg IVPUSH Q5M PRN PRN Reason: Oversedation Ondansetron HCl (Zofran) 4 mg IVPUSH Q8H PRN PRN Reason: Nausea/Vomiting Last Admin: 09/15/17 08:19 Dose: 4 mg Rosuvastatin Calcium (Crestor) 10 mg PO DAILY [facility] Last Admin: 09/17/17 10:31 Dose: 10 mg Scopolamine (Transderm-Scop) 1.5 mg TRDERM Q72H PRN PRN Reason: Nausea/Vomiting Last Admin: 09/14/17 17:28 Dose: 1.5 mg Senna (Senna) 8.6 mg PO BID PRN PRN Reason: Constipation Last Admin: 09/16/17 18:34 Dose: 8.6 mg Sodium Chloride (Saline Flush) 10 ml FLUSH ASDIRECTED PRN PRN Reason: Keep Vein Open Last Admin: 09/13/17 16:39 Dose: 10 ml Discontinued Medications Albuterol (Proventil Neb Soln) 2.5 mg NEB ONETIME ONE Stop: 09/14/17 08:29 Last Admin: 09/14/17 17:44 Dose: Not Given Aspirin (Ecotrin) 325 mg PO BID [facility] Bupivacaine HCl (Marcaine 0.5%) Confirm Administered Dose 30 ml .ROUTE .[facility] ONE Stop: 09/14/17 06:25 Bupivacaine HCl (Marcaine 0.25%) Confirm Administered Dose 30 ml .ROUTE .[facility]- [facility] ONE Stop: 09/14/17 07:20 Last Admin: 09/14/17 08:55 Dose: 8 ml Bupivacaine HCl (Sensorcaine-Mpf 0.75%) Confirm Administered Dose 30 ml .ROUTE .[facility] ONE Stop: 09/14/17 07:27 Dexamethasone (Dexamethasone) Confirm Administered Dose 8 [address] .[address] .[facility] ONE Stop: 09/14/17 08:11 Fentanyl (Sublimaze) Confirm Administered Dose 100 mcg .ROUTE .[facility] ONE Stop: 09/14/17 07:26 Fentanyl (Sublimaze) 50 mcg IVPUSH Q5M PRN PRN Reason: Pain Hydromorphone HCl (Dilaudid) 0.5 mg IVPUSH ONETIME ONE Stop: 09/13/17 16:26 Last Admin: 09/13/17 16:32 Dose: 0.5 mg Hydromorphone HCl (Dilaudid) 0.5 mg IVPUSH ONETIME ONE Stop: 09/13/17 19:12 Last Admin: 09/13/17 20:37 Dose: 0.5 mg Hydromorphone HCl (Dilaudid) 0.5 mg IV ASDIRECTED PRN PRN Reason: Severe Pain Hydromorphone HCl (Dilaudid) 0.5 mg IVPUSH ASDIRECTED PRN PRN Reason: Severe Pain Sodium Chloride (Normal Saline) 1,000 mls @ 150 mls/hr [facility] Last Admin: 09/13/17 16:39 Dose: 150 mls/hr Sodium Chloride (Sodium Chloride 0.45%) 1,000 mls @ 125 mls/hr IV ASDIRECTED [facility] Last Admin: 09/13/17 20:38 Dose: 125 mls/hr Cefazolin Sodium/Dextrose 2 gm (/ Premix) 50 mls @ 100 mls/hr IV Q8H [facility] Last Admin: 09/14/17 20:15 Dose: Not Given Lidocaine HCl (Xylocaine-Mpf 1%) Confirm Administered Dose 4 mls @ as directed .ROUTE [facility] ONE Stop: 09/14/17 07:27 Lactated Ringer's (Ringers, Lactated) Confirm Administered Dose 2,000 mls @ as directed .ROUTE [facility] ONE Stop: 09/14/17 08:11 Cefazolin Sodium/Dextrose 2 gm (/ Premix) 50 mls @ 100 mls/hr IV Q8H [facility] Stop: 09/15/17 08:29 Last Admin: 09/15/17 08:16 Dose: 100 mls/hr Ketamine HCl (Ketalar) Confirm Administered Dose 500 mg .ROUTE .STK-MED ONE Stop: 09/14/17 07:27 Ketorolac Tromethamine (Toradol) 15 mg IVPUSH Q6H [facility] Last Admin: 09/14/17 20:15 Dose: Not Given Ketorolac Tromethamine (Toradol) 30 mg IVPUSH Q6H [facility] Stop: 09/16/17 06:01 Last Admin: 09/15/17 12:17 Dose: 30 mg Ketorolac Tromethamine (Toradol) 30 mg IVPUSH Q8H [facility] Stop: 09/16/17 12:01 Last Admin: 09/16/17 12:23 Dose: 30 mg Meperidine HCl (Demerol) 12.5 mg IVPUSH ONETIME PRN PRN Reason: Shivering Metoclopramide HCl (Reglan) 10 mg IVPUSH Q6H [facility] Metoclopramide HCl (Reglan) 10 mg IVPUSH Q6H [facility] Last Admin: 09/16/17 18:34 Dose: 10 mg Midazolam HCl (Versed 1 Mg/Ml) Confirm Administered Dose 2 mg .ROUTE .STK-MED ONE Stop: 09/14/17 07:27 Morphine Sulfate (Duramorph Pf) Confirm Administered Dose 1 mg .ROUTE .STK-MED ONE Stop: 09/14/17 07:35 Ondansetron HCl (Zofran) 4 mg IVPUSH ONETIME ONE Stop: 09/13/17 16:30 Last Admin: 09/13/17 16:38 Dose: 4 mg Ondansetron HCl (Zofran) Confirm Administered Dose 4 mg .ROUTE .STK-MED ONE Stop: 09/14/17 08:21 Ondansetron HCl (Zofran) 4 mg IVPUSH ONETIME PRN PRN Reason: Nausea/Vomiting Propofol (Diprivan 20 Ml) Confirm Administered Dose 600 mg .ROUTE .STK-MED ONE Stop: 09/14/17 07:26 - Exam Wound/Incisions: Dressing Dry and Intact General: Alert, Cooperative, No Acute Distress Lungs: Normal Respiratory Effort Extremities: Other (NVS intact for LLE. Dion's negative.) - Problem List Review Problem List Initiated/Reviewed/Updated: Yes - My Orders Last 24 Hours: Active Orders 24 hr Category Date Time Status Ready for Discharge [RC] PER UNIT ROUTINE Care 09/17/17 12:38 Active ADA Diabetic [[place] [employer] Diet] [DIET Diet 09/17/17 Breakfast Active ] Soft Diet [DIET] Diet 09/16/17 Dinner Active Medication Orders Acetaminophen (Tylenol) 650 mg PO Q6H PRN PRN Reason: Pain/Fever Hydrocodone Bitart/Acetaminophen ([place] 325-5 Mg) 1 - 2 tab PO Q4H PRN PRN Reason: Pain Last Admin: 09/15/17 17:34 Dose: 1 tab Admin: 09/15/17 08:19 Dose: 1 tab Bisacodyl (Dulcolax) 5 mg PO DAILY PRN PRN Reason: Constipation Cyclobenzaprine HCl (Flexeril) 10 mg PO TID PRN PRN Reason: Spasms Dextrose/Water (Dextrose 50% In Water) 50 ml IVPUSH ASDIRECTED PRN PRN Reason: Hypoglycemia Docusate Sodium (Colace) 100 mg PO BID [facility] Last Admin: 09/17/17 10:32 Dose: 100 mg Admin: 09/16/17 20:46 Dose: 100 mg Admin: 09/16/17 09:26 Dose: 100 mg Admin: 09/15/17 21:08 Dose: 100 mg Admin: 09/15/17 10:15 Dose: 100 mg Admin: 09/14/17 20:59 Dose: 100 mg Admin: 09/14/17 11:22 Dose: 100 mg Enoxaparin Sodium (Lovenox) 40 mg SUBCUT DAILY [facility] Last Admin: 09/17/17 10:32 Dose: 40 mg Admin: 09/16/17 09:25 Dose: 40 mg Admin: 09/15/17 10:15 Dose: 40 mg Famotidine (Pepcid) 20 mg PO Q12H [facility] Last Admin: 09/17/17 06:29 Dose: 20 mg Admin: 09/16/17 18:33 Dose: 20 mg Admin: 09/16/17 06:36 Dose: 20 mg Admin: 09/15/17 18:42 Dose: 20 mg Admin: 09/15/17 06:51 Dose: Admin: 09/15/17 06:18 Dose: 20 mg Admin: 09/14/17 18:35 Dose: 20 mg Admin: 09/14/17 11:21 Dose: 20 mg Glipizide (Glucotrol Xl) 10 mg PO DAILY [facility] Last Admin: 09/17/17 10:31 Dose: 10 mg Admin: 09/16/17 09:26 Dose: 10 mg Admin: 09/15/17 10:14 Dose: Admin: 09/14/17 11:22 Dose: 10 mg Hydromorphone HCl (Dilaudid) 0.5 mg IVPUSH Q4H PRN PRN Reason: Pain (moderate 4-6) Insulin Aspart (Novolog) 0 unit SUBCUT QIDACANDBED [facility]; Protocol Last Admin: 09/17/17 12:34 Dose: Not Given Admin: 09/17/17 06:32 Dose: Admin: 09/16/17 22:00 Dose: Admin: 09/16/17 17:48 Dose: Not Given Admin: 09/16/17 11:36 Dose: Not Given Admin: 09/16/17 06:36 Dose: Not Given Admin: 09/15/17 22:33 Dose: Not Given Admin: 09/15/17 17:19 Dose: Admin: 09/15/17 11:10 Dose: Not Given Admin: 09/15/17 06:22 Dose: Not Given Admin: 09/14/17 23:26 Dose: Admin: 09/14/17 16:02 Dose: 2 unit Admin: 09/14/17 11:22 Dose: 1 unit Admin: 09/14/17 06:20 Dose: Not Given Admin: 09/13/17 21:25 Dose: Not Given Levothyroxine Sodium (Levothyroxine) 125 mcg PO ACBRK [facility] Last Admin: 09/17/17 06:18 Dose: 125 mcg Admin: 09/16/17 06:36 Dose: 125 mcg Admin: 09/15/17 06:18 Dose: 125 mcg Admin: 09/14/17 05:15 Dose: Magnesium Hydroxide (Milk Of Magnesia) 30 ml PO BID PRN PRN Reason: Constipation Last Admin: 09/17/17 06:19 Dose: 30 ml Miscellaneous Information (Remove Patch) 1 ea TRDERM Q72H [facility] Last Admin: 09/14/17 18:35 Dose: Not Given Naloxone HCl (Narcan) 0.1 mg IVPUSH Q5M PRN PRN Reason: Oversedation Ondansetron HCl (Zofran) 4 mg IVPUSH Q8H PRN PRN Reason: Nausea/Vomiting Last Admin: 09/15/17 08:19 Dose: 4 mg Admin: 09/14/17 14:14 Dose: 4 mg Rosuvastatin Calcium (Crestor) 10 mg PO DAILY [facility] Last Admin: 09/17/17 10:31 Dose: 10 mg Admin: 09/16/17 09:26 Dose: 10 mg Admin: 09/15/17 10:15 Dose: 10 mg Admin: 09/14/17 11:21 Dose: 10 mg Scopolamine (Transderm-Scop) 1.5 mg TRDERM Q72H PRN PRN Reason: Nausea/Vomiting Last Admin: 09/14/17 17:28 Dose: 1.5 mg Senna (Senna) 8.6 mg PO BID PRN PRN Reason: Constipation Last Admin: 09/16/17 18:34 Dose: 8.6 mg Admin: 09/16/17 06:36 Dose: 8.6 mg Sodium Chloride (Saline Flush) 10 ml FLUSH ASDIRECTED PRN PRN Reason: Keep Vein Open Last Admin: 09/13/17 16:39 Dose: 10 ml - Assessment Assessment (Free Text/Narrative):: POD#3 - perc screw fixation for right femoral neck fx - Plan Plan (Free Text/Narrative):: 1. May d/c with 325mg ASA BID. 2. f/u at [facility] next week. 3. 50% weight bearing RLE. 4. Other orders per Hospitalist service. The pt's case was discussed with Dr. Vieira today.
--- NOTE | 2017-09-17 12:52 | PCM.DCSUM1 ---
Discharge Summary - Hospital Course HPI Initial Comments: Patient is a 67-year-old female presents ED complaining of right hip pain. Patient states earlier today she was walking her dog when her dog took off suddenly jerking the leash in her hand. Patient fell landing on the right hip and hitting the right side of her head. There was no loss of consciousness. Patient got up on her own accord with no issues. She has been walking on the affected extremity with increasing pain. She presented to the walk-in clinic today with x-ray obtained. Fracture was noted thus she was sent to the ED for further evaluation by Dr. Vieira. Patient is on no anticoagulants. She denies any neck discomfort, nausea/vomiting, vision changes, chest pain, shortness of breath, abdominal pain, dysuria, n/t extremities, or any additional complaints. - Discharge Data Discharge Date: 09/17/17 (ADMIT 09/13/17) Discharge Disposition: Home, W Home Health Agency 06 Condition: Good - Discharge Diagnosis/Problem(s) (1) Closed right hip fracture SNOMED Code(s): 492949474 ICD Code: S72.001A - FRACTURE OF UNSP PART OF NECK OF RIGHT FEMUR, INIT Status: Acute Priority: High Current Visit: Yes Qualifiers: Encounter type: initial encounter Qualified Code(s): S72.001A - Fracture of unspecified part of neck of right femur, initial encounter for closed fracture (2) Diabetes mellitus SNOMED Code(s): 11099151 ICD Code: E11.9 - TYPE 2 DIABETES MELLITUS WITHOUT COMPLICATIONS Status: Acute Current Visit: Yes Qualifiers: Diabetes mellitus type: type 2 Diabetes mellitus intermediate accountant insulin use: unspecified prison insulin use status Diabetes mellitus complication status : with unspecified complications Qualified Code(s): E11.8 - Type 2 diabetes mellitus with unspecified complications (3) Hyperlipidemia associated with type 2 diabetes mellitus SNOMED Code(s): 743405961635, 639399789156 ICD Code: E11.69 - TYPE 2 DIABETES MELLITUS WITH OTHER SPECIFIED COMPLICATION ; E78.5 - HYPERLIPIDEMIA, UNSPECIFIED Status: Chronic Priority: Low Current Visit: Yes (4) Hypertension SNOMED Code(s): 52833392 ICD Code: I10 - ESSENTIAL (PRIMARY) HYPERTENSION Status: Chronic Priority : Medium Current Visit: Yes Qualifiers: Hypertension type: unspecified Qualified Code(s): I10 - Essential (primary ) hypertension (5) COPD (chronic obstructive pulmonary disease) SNOMED Code(s): 84904669 ICD Code: J44.9 - CHRONIC OBSTRUCTIVE PULMONARY DISEASE, UNSPECIFIED Status : Chronic Priority: Medium Current Visit: Yes Qualifiers: COPD type: unspecified COPD Qualified Code(s): J44.9 - Chronic obstructive pulmonary disease, unspecified (6) Status post-operative repair of closed fracture of right hip SNOMED Code(s): 112519187 ICD Code: Z98.890 - OTHER SPECIFIED POSTPROCEDURAL STATES; Z87.81 - PERSONAL HISTORY OF (HEALED) TRAUMATIC FRACTURE Status: Acute Priority: High Current Visit: Yes - Patient Summary/Data Operative Procedure(s) Performed: percutaneous fixation of right subcapital femoral neck fracture Complications: none Consults: Consultations 09/13/17 19:56 Consult to Dispensing Optician [CONS] Routine 09/13/17 19:57 Consult to Occupational Therapy [OT Evaluation and Treatment] [CONS] Routine Consult to Physical Therapy [PT Evaluation and Treatment] [CONS] Routine 09/14/17 14:07 Consult to Physician [CONS] Routine Labs Pending at D/C: none Recommended Follow-up Testing/Procedures: Follow up with PCP in 7-[address] Vieira in orthopedics for post surgical follow up Planned Operative Procedure(s) after DC: none Hospital Course: Acute: Right femur neck fracture -POD 2 percut fixation of femur neck fracture -S/P fall with subsequent closed right hip fracture -POST OP NAUSEA, DIET CHANGED TO NPO-->advance as tolerated -No outside food. Chronic: HTN DM type 2 HLD on a statin--> resume at home medication COPD with active tobacco use -no interest in quitting -declines nicotine replacement Plan: IVF Hold Metformin Home meds Pain meds; Toradol as tolerated DC 09/16/17. Pre op labs; scheduled as per Ortho NPO after MN except meds Check HgB, DM ed and teaching Dietary consultation Nicotine replacement and tobacco cessation education Consult PT/OT/SW post op; expected hosp stay 96 hours DVT/GI prophylaxis PCP is Lavonne James. Pt is a DNR/DNI. D/C home with home health today: Due to recent right proximal femoral neck fracture s/p percutaneous pinning, it is taking increasing effort for pt to leave the home. Pt is walker dependent, has pain with ambulation, and history of falls and will benefit from services to increase level of independence: residential, SCREEN EXAMINER, PT/OT. Discussed homebound status with patient and she agrees and understands. Currently she lives alone, with no family in the area. Case management is looking for community resources to help assist. Primary care Physician is Lavonne James. Yuliana has recovered quite well. She had multiple tests done. So far all have been negative except for right femoral neck fracture. She was admitted and had percutanous pinning of the neck fracture. PT/OT are recommending home health PT/ OT. She should follow-up with her primary care provider in 7-[address] Vieira for post surgical follow up. She was discharged home on ASA x35 days for DVT/PE prophylaxis. She will be discharged home with home health today. - Patient Instructions Diet: Heart Healthy Diet, Diabetic Diet Activity: Apply Ice, As Tolerated, Elevate Extremity Driving: Do Not Drive (follow up with Dr. Vieira as to when driving is OK) Showering/Bathing: May Shower Wound/Incision Care: Keep Operative Site/Wound Site Clean and Dry, Do NOT Change Dressing Notify Provider of: Fever, Increased Pain, Swelling and Redness, Drainage, Nausea and/or Vomiting Other/Special Instructions: Please get up and moving around every hour while awake. This helps to prevent blood clots. Use the walker and have help with mobility as needed. Please wear the FERCHO hose during the day and you may remove them at night. Please use the pain medication and muscle relaxant as needed. The medication may cause drowsiness and/or constipation. You could use a stool softener like docusate sodium or Colace 100mg twice daily and/or a laxative like Miralax daily for constipation. Contact your primary care provider for further instructions if you are constipated. Try to wean from use of the pain medication as soon as able. Use the incentive spirometer often. Please place ice to the hip and thigh often. Please elevate the limb to decrease swelling. Keep the Aquacel dressing in place until follow-up. Please notify the Clinic if the dressing is saturated or rolls down. Increase protein intake in your diet as this helps with healing. Please call [phone] with questions or concerns. - Discharge Plan Prescriptions/Med Rec: Aspirin 325 mg PO BID 35 Days #70 tablet Home Medications: Home Meds Furosemide [Lasix] 40 mg PO DAILY 03/31/14 [History] Levothyroxine [Synthroid] 125 mcg PO DAILY 03/31/14 [History] glipiZIDE [Glipizide ER] 10 mg PO DAILY 03/31/14 [History] metFORMIN HCl [Metformin HCl ER] 750 mg PO DAILY 03/31/14 [History] SitaGLIPtin [Januvia] 100 mg PO DAILY 09/13/17 [History] atorvaSTATin [Lipitor] 40 mg PO DAILY 09/13/17 [History] Alendronate Sodium [Alendronate] 70 mg PO WEEKLY 09/16/17 [History] Aspirin 325 mg PO BID 35 Days #70 tablet 09/17/17 [Rx] Patient Handouts: Type 2 Diabetes Mellitus, Self Care, Adult, [id number], Hypertension, [id number], Hip Fracture, Steps to Quit Smoking Referrals: Lavonne James PA-C [Primary Care Provider] - 09/25/17 1:00 pm (Please follow -up with your primary care doctor, Dr. James, on SaturdaySeptember 25 at 1:00pm. If this date/time does not work for you, please call and reschedule with 7-10 days of discharge. ) Nicky Pappas PA-C [Physician Hospice Director] - 09/25/17 3:15 pm (Please follow-up with Dr. Vieira/Ping Pappas on SaturdaySeptember 25 at 0315pm. ) - Discharge Summary/Plan Comment DC Time >30 min.: Yes (40) - General Info Date of Service: 09/17/17 Admission Dx/Problem (Free Text: Admission Diagnosis/Problem Admission Diagnosis/Problem Hip fracture requiring operative repair Subjective Update: In to see Yuliana today. She is post op day 3 from right hip surgery. She is sitting in a chair. Overall she is doing quite well. She has no complaints. She has been sleeping well. Good appetite. Pain is controlled. Increase activity as tolerated. Urinating. Incentive Spirometry. No concerns from nursing. Will D/ C home with home health today. Functional Status: Reports: Pain Controlled, Tolerating Diet, Ambulating, Urinating, Incentive Spirometry - Review of Systems General: Reports: No Symptoms. Denies: Fever, Chills HEENT: Reports: No Symptoms Pulmonary: Reports: No Symptoms. Denies: Shortness of Breath, Cough, Wheezing Cardiovascular: Reports: No Symptoms. Denies: Chest Pain, Palpitations, Dyspnea on Exertion Gastrointestinal: Reports: No Symptoms. Denies: Abdominal Pain, Diarrhea, Nausea, Vomiting Genitourinary: Reports: No Symptoms. Denies: Dysuria, Frequency, Burning, Pain Musculoskeletal: Reports: No Symptoms Skin: Reports: No Symptoms Neurological: Reports: No Symptoms Psychiatric: Reports: No Symptoms - Patient Data Vitals - Most Recent: Last Vital Signs Temp 98.2 F 09/17/17 12:02 Pulse 72 09/17/17 12:02 Resp 20 09/17/17 12:02 BP 124/67 09/17/17 12:02 Pulse Ox 91 L 09/17/17 12:02 Weight - Most Recent: 188 lb 6.4 oz I&O - Last 24 hours: Intake & Output 09/16/17 09/17/17 09/17/17 22:59 06:59 14:59 Intake Total 750 900 Output Total 300 300 Balance 450 600 Lab Results - Last 24 hrs: Laboratory Results - last 24 hr 09/16/17 09/16/17 09/17/17 Range/Units 17:23 21:42 05:57 WBC (3.98-10.04) K/mm3 RBC (3.98-5.22) M/mm3 Hgb (11.2-15.7) gm/L Hct (34.1-44.9) % MCV (79.4-94.8) fl MCH (25.6-32.2) pg MCHC (32.2-35.5) g/dl RDW Std Deviation (36.4-46.3) fL Plt Count (182-369) K/mm3 MPV (9.4-12.3) fl Neut % (Auto) (34.0-71.1) % Lymph % (Auto) (19.3-51.7) % [place] % (Auto) (4.7-12.5) % Eos % (Auto) (0.7-5.8) Baso % (Auto) (0.1-1.2) % Neut # (Auto) (1.56-6.13) K/mm3 Lymph # (Auto) (1.18-3.74) K/mm3 [place] # (Auto) (0.24-0.36) K/mm3 Eos # (Auto) (0.04-0.36) K/mm3 Baso # (Auto) (0.01-0.08) K/mm3 Manual Slide Review Sodium (136-145) mEq/L Potassium (3.5-5.1) mEq/L Chloride (98-107) mEq/L Carbon Dioxide (21-32) mEq/L Anion Gap (5-15) BUN (7-18) mg/dL Creatinine (0.55-1.02) mg/dL Est Cr Clr Drug Dosing mL/min Estimated GFR (MDRD) (>60) mL/min BUN/Creatinine Ratio (14-18) Glucose (80-115) mg/dL POC Glucose 146 H 92 83 (80-115) mg/dL Calcium (8.5-10.1) mg/dL Magnesium (1.8-2.4) mg/dl C-Reactive Protein (<1.0) mg/dL 09/17/17 09/17/17 09/17/17 Range/Units 07:06 07:06 11:22 WBC 8.38 (3.98-10.04) K/mm3 RBC 4.21 (3.98-5.22) M/mm3 Hgb 13.4 (11.2-15.7) gm/L Hct 39.3 (34.1-44.9) % MCV 93.3 (79.4-94.8) fl MCH 31.8 (25.6-32.2) pg MCHC 34.1 (32.2-35.5) g/dl RDW Std Deviation 38.0 (36.4-46.3) fL Plt Count 201 (182-369) K/mm3 MPV 12.1 (9.4-12.3) fl Neut % (Auto) 81.8 H (34.0-71.1) % Lymph % (Auto) 8.8 L (19.3-51.7) % [place] % (Auto) 7.6 (4.7-12.5) % Eos % (Auto) 1.1 (0.7-5.8) Baso % (Auto) 0.5 (0.1-1.2) % Neut # (Auto) 6.85 H (1.56-6.13) K/mm3 Lymph # (Auto) 0.74 L (1.18-3.74) K/mm3 [place] # (Auto) 0.64 H (0.24-0.36) K/mm3 Eos # (Auto) 0.09 (0.04-0.36) K/mm3 Baso # (Auto) 0.04 (0.01-0.08) K/mm3 Manual Slide Review Abnormal smear Sodium 140 (136-145) mEq/L Potassium 4.2 (3.5-5.1) mEq/L Chloride 107 (98-107) mEq/L Carbon Dioxide 30 (21-32) mEq/L Anion Gap 7.2 (5-15) BUN 10 (7-18) mg/dL Creatinine 0.6 (0.55-1.02) mg/dL Est Cr Clr Drug Dosing 87.27 mL/min Estimated GFR (MDRD) > 60 (>60) mL/min BUN/Creatinine Ratio 16.7 (14-18) Glucose 100 (80-115) mg/dL POC Glucose 105 (80-115) mg/dL Calcium 9.1 (8.5-10.1) mg/dL Magnesium 2.2 (1.8-2.4) mg/dl C-Reactive Protein 5.7 H* (<1.0) mg/dL JESSE Results - Last 24 hrs: Microbiology 09/14/17 18:50 Urine Culture - Final Urine, [place] Cath ([place]) NO GROWTH AFTER 2 DAYS Med Orders - Current: Current Medications Acetaminophen (Tylenol) 650 mg PO Q6H PRN PRN Reason: Pain/Fever Hydrocodone Bitart/Acetaminophen ([place] 325-5 Mg) 1 - 2 tab PO Q4H PRN PRN Reason: Pain Last Admin: 09/15/17 17:34 Dose: 1 tab Bisacodyl (Dulcolax) 5 mg PO DAILY PRN PRN Reason: Constipation Cyclobenzaprine HCl (Flexeril) 10 mg PO TID PRN PRN Reason: Spasms Dextrose/Water (Dextrose 50% In Water) 50 ml IVPUSH ASDIRECTED PRN PRN Reason: Hypoglycemia Docusate Sodium (Colace) 100 mg PO BID MAMTA Last Admin: 09/17/17 10:32 Dose: 100 mg Enoxaparin Sodium (Lovenox) 40 mg SUBCUT DAILY [facility] Last Admin: 09/17/17 10:32 Dose: 40 mg Famotidine (Pepcid) 20 mg PO Q12H [facility] Last Admin: 09/17/17 06:29 Dose: 20 mg Glipizide (Glucotrol Xl) 10 mg PO DAILY [facility] Last Admin: 09/17/17 10:31 Dose: 10 mg Hydromorphone HCl (Dilaudid) 0.5 mg IVPUSH Q4H PRN PRN Reason: Pain (moderate 4-6) Insulin Aspart (Novolog) 0 unit SUBCUT QIDACANDBED [facility]; Protocol Last Admin: 09/17/17 12:34 Dose: Not Given Levothyroxine Sodium (Levothyroxine) 125 mcg PO ACBRK [facility] Last Admin: 09/17/17 06:18 Dose: 125 mcg Magnesium Hydroxide (Milk Of Magnesia) 30 ml PO BID PRN PRN Reason: Constipation Last Admin: 09/17/17 06:19 Dose: 30 ml Miscellaneous Information (Remove Patch) 1 ea TRDERM Q72H [facility] Last Admin: 09/14/17 18:35 Dose: Not Given Naloxone HCl (Narcan) 0.1 mg IVPUSH Q5M PRN PRN Reason: Oversedation Ondansetron HCl (Zofran) 4 mg IVPUSH Q8H PRN PRN Reason: Nausea/Vomiting Last Admin: 09/15/17 08:19 Dose: 4 mg Rosuvastatin Calcium (Crestor) 10 mg PO DAILY [facility] Last Admin: 09/17/17 10:31 Dose: 10 mg Scopolamine (Transderm-Scop) 1.5 mg TRDERM Q72H PRN PRN Reason: Nausea/Vomiting Last Admin: 09/14/17 17:28 Dose: 1.5 mg Senna (Senna) 8.6 mg PO BID PRN PRN Reason: Constipation Last Admin: 09/16/17 18:34 Dose: 8.6 mg Sodium Chloride (Saline Flush) 10 ml FLUSH ASDIRECTED PRN PRN Reason: Keep Vein Open Last Admin: 09/13/17 16:39 Dose: 10 ml Discontinued Medications Albuterol (Proventil Neb Soln) 2.5 mg NEB ONETIME ONE Stop: 09/14/17 08:29 Last Admin: 09/14/17 17:44 Dose: Not Given Aspirin (Ecotrin) 325 mg PO BID [facility] Bupivacaine HCl (Marcaine 0.5%) Confirm Administered Dose 30 ml .ROUTE .STK-MED ONE Stop: 09/14/17 06:25 Bupivacaine HCl (Marcaine 0.25%) Confirm Administered Dose 30 ml .ROUTE .STK- MED ONE Stop: 09/14/17 07:20 Last Admin: 09/14/17 08:55 Dose: 8 ml Bupivacaine HCl (Sensorcaine-Mpf 0.75%) Confirm Administered Dose 30 ml .ROUTE .STK-MED ONE Stop: 09/14/17 07:27 Dexamethasone (Dexamethasone) Confirm Administered Dose 8 mg .ROUTE .STK-MED ONE Stop: 09/14/17 08:11 Fentanyl (Sublimaze) Confirm Administered Dose 100 mcg .ROUTE .STK-MED ONE Stop: 09/14/17 07:26 Fentanyl (Sublimaze) 50 mcg IVPUSH Q5M PRN PRN Reason: Pain Hydromorphone HCl (Dilaudid) 0.5 mg IVPUSH ONETIME ONE Stop: 09/13/17 16:26 Last Admin: 09/13/17 16:32 Dose: 0.5 mg Hydromorphone HCl (Dilaudid) 0.5 mg IVPUSH ONETIME ONE Stop: 09/13/17 19:12 Last Admin: 09/13/17 20:37 Dose: 0.5 mg Hydromorphone HCl (Dilaudid) 0.5 mg IV ASDIRECTED PRN PRN Reason: Severe Pain Hydromorphone HCl (Dilaudid) 0.5 mg IVPUSH ASDIRECTED PRN PRN Reason: Severe Pain Sodium Chloride (Normal Saline) 1,000 mls @ 150 mls/hr IV ASDIRECTED [facility] Last Admin: 09/13/17 16:39 Dose: 150 mls/hr Sodium Chloride (Sodium Chloride 0.45%) 1,000 mls @ 125 mls/hr IV ASDIRECTED [facility] Last Admin: 09/13/17 20:38 Dose: 125 mls/hr Cefazolin Sodium/Dextrose 2 gm (/ Premix) 50 mls @ 100 mls/hr IV Q8H [facility] Last Admin: 09/14/17 20:15 Dose: Not Given Lidocaine HCl (Xylocaine-Mpf 1%) Confirm Administered Dose 4 mls @ as directed .ROUTE .STK-MED ONE Stop: 09/14/17 07:27 Lactated Ringer's (Ringers, Lactated) Confirm Administered Dose 2,000 mls @ as directed .ROUTE .STK-MED ONE Stop: 09/14/17 08:11 Cefazolin Sodium/Dextrose 2 gm (/ Premix) 50 mls @ 100 mls/hr IV Q8H [facility] Stop: 09/15/17 08:29 Last Admin: 09/15/17 08:16 Dose: 100 mls/hr Ketamine HCl (Ketalar) Confirm Administered Dose 500 mg .ROUTE .STK-MED ONE Stop: 09/14/17 07:27 Ketorolac Tromethamine (Toradol) 15 mg IVPUSH Q6H [facility] Last Admin: 09/14/17 20:15 Dose: Not Given Ketorolac Tromethamine (Toradol) 30 mg IVPUSH Q6H [facility] Stop: 09/16/17 06:01 Last Admin: 09/15/17 12:17 Dose: 30 mg Ketorolac Tromethamine (Toradol) 30 mg IVPUSH Q8H [facility] Stop: 09/16/17 12:01 Last Admin: 09/16/17 12:23 Dose: 30 mg Meperidine HCl (Demerol) 12.5 mg IVPUSH ONETIME PRN PRN Reason: Shivering Metoclopramide HCl (Reglan) 10 mg IVPUSH Q6H MAMTA Metoclopramide HCl (Reglan) 10 mg IVPUSH Q6H [facility] Last Admin: 09/16/17 18:34 Dose: 10 mg Midazolam HCl (Versed 1 Mg/Ml) Confirm Administered Dose 2 mg .ROUTE .STK-MED ONE Stop: 09/14/17 07:27 Morphine Sulfate (Duramorph Pf) Confirm Administered Dose 1 mg .ROUTE .STK-MED ONE Stop: 09/14/17 07:35 Ondansetron HCl (Zofran) 4 mg IVPUSH ONETIME ONE Stop: 09/13/17 16:30 Last Admin: 09/13/17 16:38 Dose: 4 mg Ondansetron HCl (Zofran) Confirm Administered Dose 4 mg .ROUTE .STK-MED ONE Stop: 09/14/17 08:21 Ondansetron HCl (Zofran) 4 mg IVPUSH ONETIME PRN PRN Reason: Nausea/Vomiting Propofol (Diprivan 20 Ml) Confirm Administered Dose 600 mg .ROUTE .STK-MED ONE Stop: 09/14/17 07:26 - Exam Quality Assessment: Reports: DVT Prophylaxis General: Reports: Alert, Oriented, Cooperative, No Acute Distress HEENT: Reports: Pupils Equal, Pupils Reactive, EOMI, Mucous Membr. Moist/[place] Neck: Reports: Supple Lungs: Reports: Clear to Auscultation, Normal Respiratory Effort Cardiovascular: Reports: Regular Rate, Regular Rhythm GI/Abdominal Exam: Normal Bowel Sounds, Soft, Non-Tender, No Organomegaly, No Distention, No Abnormal Bruit, No Mass, Pelvis Stable (Female) Exam: Deferred Rectal (Female) Exam: Deferred Back Exam: Reports: Normal Inspection, Full Range of Motion Extremities: Normal Inspection, No Pedal Edema, Normal Capillary Refill, Limited Range of Motion (s/p R femoral neck pinning) Skin: Reports: Warm, Dry, Intact Wound/Incisions: Reports: Healing Well, Dressing Dry and Intact, No Drainage Neurological: Reports: No New Focal Deficit Psy/Mental Status: Reports: Alert, Normal Affect, Normal Mood
== END 2017-09-17 14:32 | disposition home health service (06) | DRG 482 ==
LOC: JD.ED 16:02 → SUPCPDRO 16:02 → JD.MS 17:04
PROVIDERS: ADMIT Orthopaedic Surgery; ATTEND Orthopaedic Surgery
PROC: 0QH634Z Insertion of Internal Fixation Device into Right Upper Femur, Percutaneous Approach (ICD-10-PCS; principal; 2017-09-14)
DX: S72.001A Fracture of unspecified part of neck of right femur, initial encounter for closed fracture (principal); S72.011A Unspecified intracapsular fracture of right femur, initial encounter for closed fracture; S00.03XA Contusion of scalp, initial encounter; W18.39XA Other fall on same level, initial encounter; F41.9 Anxiety disorder, unspecified; E11.9 Type 2 diabetes mellitus without complications; E03.9 Hypothyroidism, unspecified; J44.9 Chronic obstructive pulmonary disease, unspecified; H54.7 Unspecified visual loss; E78.5 Hyperlipidemia, unspecified; R53.1 Weakness; F17.200 Nicotine dependence, unspecified, uncomplicated; M25.551 Pain in right hip; R26.2 Difficulty in walking, not elsewhere classified; F17.210 Nicotine dependence, cigarettes, uncomplicated; R11.0 Nausea; Z66 Do not resuscitate; Z91.81 History of falling; Z90.49 Acquired absence of other specified parts of digestive tract; Z88.2 Allergy status to sulfonamides; Z88.8 Allergy status to other drugs, medicaments and biological substances; Z79.84 Long term (current) use of oral hypoglycemic drugs; Z79.899 Other long term (current) drug therapy; Z85.828 Personal history of other malignant neoplasm of skin
CPT/HCPCS: 36415; 70450; 71045; 80053; 85025; 85610; 85730; 96374; 96375; 99285; J1170; J2405; J7040; J7050; 51702; 73501-26-RT; 73501-RT; 76000; 76000-26; 80048; 80061; 81001; 82962; 83036; 83735; 86140; 87086; 87641; 93005; 94761; 94762; 97110-GP; 97116-GP; 97162-GP; 97166-GO; 97530-GO; 97530-GP; 97535-GO; 99284; A9270-GY; C1713; J0690; J1100; J1650; J1815-GY; J1885; J2250; J2274; J2704; J2765; J3010; J3490; J7030; J7120